=== PATIENT | male | born 1960 | race Caucasian/White ===

== ENCOUNTER 2020-09-24 07:36 | Outpatient (REF) | payer BC, SELFPAY ==
--- NOTE | 2020-09-24 07:45 | FL_ITS ---
EXAMINATION: BARIUM SWALLOW CLINICAL INFORMATION: Gastroesophageal reflux disease and dysphagia COMPARISON: None TECHNIQUE: Upper GI was performed using thin and thick barium and effervescent granules. Barium tablet was also administered. Fluoroscopy time 1.8 minutes. DAP 24 zuniga per centimeter squared. Total dose 88 mgy. 57 saved fluoroscopic images. FINDINGS: The swallowing mechanism is normal. No aspiration or penetration is seen. There is gastroesophageal reflux. Esophageal motility is normal. No mass or stricture is seen. There is slight tenting of the proximal stomach likely representing postsurgical change. The stomach and duodenum are otherwise normal appearing. No fold thickening, mass, stricture or ulcer is seen. FL/FL barium swallow IMPRESSION: Gastroesophageal reflux.
== END 2020-09-24 07:37 | disposition home or self-care (01) ==
LOC: HO.XRAY 07:36
PROVIDERS: Visit Provider Internal Medicine
DX: R13.10 Dysphagia, unspecified (principal); K21.9 Gastro-esophageal reflux disease without esophagitis
CPT/HCPCS: 74220

== ENCOUNTER 2021-06-17 09:30 | Emergency (ER) | payer BC, SELFPAY ==
--- NOTE | ~2021-06-17 | CT_ITS ---
EXAMINATION: CT ABDOMEN AND PELVIS WITH CONTRAST CLINICAL INFORMATION: Nausea, diarrhea. Left lower quadrant pain. COMPARISON: Barium swallow fluoroscopy 09/24/2020, radionuclide HIDA scan 03/10/2016, abdominal ultrasound 02/04/2016, CT abdomen and pelvis with intravenous contrast 01/01/2010. TECHNIQUE: Multidetector volumetric images were obtained from the superior aspect of the liver through the pubic symphysis following administration 85 mL of Omnipaque 350 intravenous contrast. Sagittal and coronal reformatted images were obtained on the technologist's workstation. Oral contrast: No This CT examination was performed using dose optimization techniques as appropriate, variously including the following: *Automated exposure control *Adjustment of mA and/or kV according to patient size (this includes techniques or standardized protocols for targeted exams where dose is matched to indication/reason for exam; i.e. extremities or head) *Use of iterative reconstruction technique DLP: 615 mGy-cm FINDINGS: LUNG BASES: The visualized lung bases are unremarkable. LIVER, GALLBLADDER, AND BILIARY TREE: Liver is normal in size and smooth in contour. There is borderline hepatic steatosis. No focal hepatic parenchymal lesion or intrahepatic ductal dilatation. There are round dependent intraluminal densities in the gallbladder measuring up to 1.2 cm diameter. There is some trace peripheral calcification suggesting poorly mineralized gallstones. There is no gallbladder wall thickening or dilatation or pericholecystic inflammatory changes. The common duct is unremarkable. PANCREAS: Unremarkable. SPLEEN: Unremarkable. ADRENAL GLANDS: Unremarkable. KIDNEYS AND URETERS: The kidneys are normal in size, shape, and attenuation. No hydronephrosis, hydroureter, or calculi seen. No perinephric stranding. BLADDER: Unremarkable. GASTROINTESTINAL TRACT: There are mild inflammatory changes around a lower descending colon diverticulum with mild induration in the mesentery (axial 54/91, sagittal 35/128). There is no proximal obstruction, pneumatosis, free air, ascites, or fluid collection. The appendix is not seen with certainty. There are no inflammatory changes around the terminal ileum or cecum. ABDOMINAL WALL: Borderline fat-containing right inguinal hernia. LYMPH NODES: No lymphadenopathy. VASCULAR: Unremarkable. PELVIC VISCERA: Prostatic calcifications. Seminal vesicles symmetric. Pelvic side wall soft tissues unremarkable. OSSEOUS STRUCTURES: Unremarkable. CT/CT abdomen pelvis w con IMPRESSION: 1. Mild diverticulitis distal descending colon. No proximal obstruction, ascites, or fluid collection. 2. Suspect poorly mineralized gallstones. No gallbladder wall thickening or ductal dilatation.
[2021-06-17 09:44] VITALS: BP 147/82; PULSE 62; RESP 20; TEMP 36.7; O2SAT 98; BMI 29.6
[2021-06-17] MEDS: 0.9 % Sodium Chloride 1,000 ML 999 ML IVCONT (11:19)
[2021-06-17 11:24] LABS: MANUAL DIFF FLAG NO
[2021-06-17 11:26] LABS: Appearance Urine CLEAR; Basophils Percent Auto 0.4 % (0-2); Color Urine STRAW; Eosinophils Absolute Auto 0.1 X10*3/uL (0.0-0.4); Eosinophils Percent Auto 1.1 % (0-4); Glucose Urine UA NEG (NEG); Hematocrit 41.6 % (42-52); Hemoglobin 13.8 g/dl (14.0-18.0); Imm Gran Abs Auto 0.01 X10*3/uL (0.00-0.03); Imm Gran Pct Auto 0.2 % (0.0-0.4); Leukocyte Esterase Urine NEG (NEG); Lymphocytes Absolute Auto 1.4 X10*3/uL (1.2-4.9); Lymphocytes Percent Auto 25.3 % (20-40); Mean Corpuscular HGB Conc 33.2 g/dl (31.0-36.0); Mean Corpuscular Hemoglobin 30.2 pg (27.0-33.0); Mean Platelet Volume 10.5 fL (9.4-12.4); Monocytes Absolute Auto 0.5 X10*3/uL (0.1-1.2); Monocytes Percent Auto 8.8 % (2-11); Neutrophils Absolute Auto 3.5 X10*3/uL (2.0-8.3); Neutrophils Percent Auto 64.2 % (45-73); Nitrite Urine NEG (NEG); Platelet Count 194 X10*3/uL (160-400); Red Blood Count 4.57 X10*6/uL (4.60-5.80); Red Cell Distribution Width 14.6 % (11.0-16.0); Specific Gravity - Urine <= 1.005 (1.005-1.025); Urine Blood NEG (NEG); Urine Ketones NEG (NEG); Urine Protein NEG (NEG-TRACE); White Blood Count 5.4 X10*3/uL (4.8-10.8)
--- NOTE | 2021-06-17 11:32 | ED.ABDPAIN ---
HPI - Abdominal Pain General Chief Complaint: Abdominal Pain Stated Complaint: abd pain Time Seen by Provider: 06/17/21 10:45 Source: patient Mode of arrival: ambulatory Limitations: no limitations History of Present Illness HPI narrative: 61-year-old male with a past medical history of type 2 diabetes, hypertension, hypercholesterolemia and obesity presenting to the ED with complaints of left lower quadrant abdominal pain with associated nausea and diarrhea for the past 3 days worse today. Denies any fevers, dizziness, headaches, chest pain, shortness of breath, radiation of the abdominal pain, back pain, dysuria, hematuria, constipation, black or bloody stools, recent travel or sick contacts or possible bad food exposure. Denies any other symptoms complaints or concerns at this time. MD elicited complaint: abdominal pain Pertinent past history: none Onset (ago): day(s) (Three days worse today) Pain Consistency: constant Location: LLQ Severity: moderate Quality: aching Radiation: none Migration to: no migration Exacerbating factors: nothing Relieving factors: nothing Associated symptoms: nausea and diarrhea Related Data Home Medications Medication Instructions Recorded Confirmed aspirin 325 mg tablet,delayed 325 mg PO BID 06/17/21 release hydromorphone 2 mg tablet mg PO Q4-6H PRN 06/17/21 lisinopril 30 mg tablet 30 mg PO DAILY 06/17/21 meloxicam 15 mg tablet 15 mg PO DAILY 06/17/21 metronidazole 0.75 % topical cream appl TOPICAL BID 06/17/21 Previous Rx's Medication Instructions Recorded amoxicillin 875 mg-potassium 1 tab PO BID 10 Days #20 tab 06/17/21 clavulanate 125 mg tablet (Augmentin) Allergies Allergy/AdvReac Type Severity Reaction Status Date / Time No Known Allergies Allergy Verified 09/10/20 11:26 [No Known Allergies*] Review of Systems Review of Systems Constitutional : No Weight loss, No Fever, No Chills, No Night Sweats, No Fatigue, NoMalaise ENT/Mouth: No ear pain, No sore throat, No Difficulty swallowing Cardiovascular : No Chest Pain, No SOB, No Dyspnea on Exertion, No Orthopnea, NoEdema, No Palpitations Respiratory : No Cough, No Sputum, No Wheezing, No Dyspnea Gastrointestinal : Positive nausea with left lower quadrant abdominal pain and diarrhea, No Vomiting, No blood streaked emesis, No coffee-ground emesis, No gross hematemesis, No blood streak stool, No gross hematochezia, No Melena Genitourinary : No irregular bleeding, No Dysuria, No Urinary Frequency, No Hematuria,No Urinary Incontinence, No Urgency, No Flank Pain Musculoskeletal : No joint pain, No Myalgias, No Joint Swelling Skin : No Skin Lesions, No rash Neuro : No Weakness, No Numbness, No Paresthesias, No Loss of Consciousness, NoDizziness, No Headache Psych : No Social Issues, Heme/Lymph: No Bruising, No Bleeding,No Lymphadenopathy Endocrine : No Polyuria, No Polydipsia, No Temperature Intolerance Yes all other systems are reviewed and are negative Physical Exam Vital Signs: Vital Signs: Last Vital Signs Temp 98.0 F 06/17/21 09:44 Pulse 51 06/17/21 11:36 Resp 18 06/17/21 11:36 BP 136/89 06/17/21 11:36 Pulse Ox 100 06/17/21 11:36 Body Mass Index 29.6 vital signs have been reviewed as normal and appeared to be correct. Blood pressure normal. Heart rate normal. Respiration rate normal. Temperature normal. Oxygen saturation normal. Appearance: Alert. Oriented X3. No acute distress. Head: Normal external exam. Normocephalic. Eyes: PERRLA. EOMI. Conjunctiva and sclera normal. Eyelids normal. ENT: Pharynx normal. Uvula midline. Moist mucous membranes. Neck: Normal inspection. Neck supple. FROM. No adenopathy. No meningeal signs. CVS: Normal heart rate and rhythm. Heart sound normal. No murmurs noted. Pulses normal throughout. Respiratory: No respiratory distress. Painless inspiration. Breath sounds normal. No wheezes/rales/rhonchi noted. Chest nontender. No accessory muscle usage noted or decreased air movement noted. Abdomen: Soft and tenderness to palpation to left lower quadrant with guarding. Nondistended. No rigidity. Bowel sounds normal in all 4 quadrants. No distention noted. No organomegaly noted. No visible injury noted. No rebound tenderness. Negative Rovsing sign. Negative obturator's sign. Negative psoas sign. Negative Condon sign. Back: No CVA tenderness. Full range of motion noted. Skin: Skin warm and dry. Normal skin color. Normal skin turgor. No rashes/lesions/lacerations noted. Extremities: Extremities exhibit normal range of motion. Extremities nontender. Neuro: Oriented X 3. No motor deficit. No sensory deficit. Reflexes normal. Normal steady gait. Course Course Course Narrative: 10:45am - 61-year-old male with a past medical history of type 2 diabetes, hypertension, hypercholesterolemia and obesity presenting to the ED with complaints of left lower quadrant abdominal pain with associated nausea and diarrhea for the past 3 days worse today. Plan: Labs, UA, CT scan of abdomen pelvis with IV contrast and re-evaluate. Reevaluation(s) Reevaluation #1: - labs return patient with mild baseline anemia similar when compared to prior. All other labs are within normal limits. UA within normal limits no evidence of UTI. CT scan abdomen pelvis with IV contrast revealed mild diverticulitis at the distal descending colon. No obstruction ascites or fluid collection. Also noted to have gallstones. No other acute processes. 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 Patient understands agrees this plan. Time: 13:06 [facility] - Abdominal Pain Medical Records Attestation: I reviewed the patient's medical records. Lab Data Attestation: I reviewed the patient's lab results. Result diagrams: 06/17/21 11:14 06/17/21 11:14 Labs: Lab Results 06/17/21 06/17/21 06/17/21 Range/Units 11:14 11:14 11:14 WBC 5.4 (4.8-10.8) X10*3/uL RBC 4.57 L (4.60-5.80) X10*6/uL Hgb 13.8 L (14.0-18.0) g/dl Hct 41.6 L (42-52) % MCV 91.0 (80-98) fL MCH 30.2 (27.0-33.0) pg MCHC 33.2 (31.0-36.0) g/dl RDW 14.6 (11.0-16.0) % Plt Count 194 (160-400) X10*3/uL MPV 10.5 (9.4-12.4) fL Immature Gran % (Auto) 0.2 (0.0-0.4) % Neut % (Auto) 64.2 (45-73) % Lymph % (Auto) 25.3 (20-40) % [place] % (Auto) 8.8 (2-11) % Eos % (Auto) 1.1 (0-4) % Baso % (Auto) 0.4 (0-2) % Lymph # (Auto) 1.4 (1.2-4.9) X10*3/uL [place] # (Auto) 0.5 (0.1-1.2) X10*3/uL Eos # (Auto) 0.1 (0.0-0.4) X10*3/uL Baso # (Auto) 0.0 (0.0-0.2) X10*3/uL Abs Immat Gran (auto) 0.01 (0.00-0.03) X10*3/uL Absolute Neuts (auto) 3.5 (2.0-8.3) X10*3/uL Absolute Nucleated RBC 0.000 (0.0-0.012) X10*3/uL Nucleated RBC % (auto) 0.0 (0.0-0.2) /100WBC Sodium 139 (135-145) mmol/L Potassium 4.6 (3.3-5.1) mmol/L Chloride 105 (96-108) mmol/L Carbon Dioxide 25 (22-29) mmol/L Anion Gap 14 (12-20) BUN 9 (9-16) mg/dL Creatinine 0.79 (0.5-1.4) mg/dL Estim Creat Clear Calc 104.7 Estimated GFR > 60 Random Glucose 89 (60-115) mg/dL Calcium 9.5 (8.4-10.2) mg/dL Magnesium 2.2 (1.6-2.6) mg/dL Total Bilirubin 0.6 (0.0-1.0) mg/dL AST 31 (5-37) U/L ALT 22 (0-40) U/L Alkaline Phosphatase 72 (39-117) U/L Total Protein 7.6 (6.5-8.0) g/dL Albumin 4.6 (3.5-5.0) g/dL Lipase 24 (8-78) U/L Urine Color Urine Appearance Urine pH (5.0-8.0) Ur Specific [place] (1.005-1.025) Urine Protein (NEG-TRACE) MG/DL Urine Glucose (UA) (NEG) MG/DL Urine Ketones (NEG) MG/DL Urine Blood (NEG) Urine Nitrite (NEG) Ur Leukocyte Esterase (NEG) 06/17/21 Range/Units 11:14 WBC (4.8-10.8) X10*3/uL RBC (4.60-5.80) X10*6/uL Hgb (14.0-18.0) g/dl Hct (42-52) % MCV (80-98) fL MCH (27.0-33.0) pg MCHC (31.0-36.0) g/dl RDW (11.0-16.0) % Plt Count (160-400) X10*3/uL MPV (9.4-12.4) fL Immature Gran % (Auto) (0.0-0.4) % Neut % (Auto) (45-73) % Lymph % (Auto) (20-40) % B[place] % (Auto) (2-11) % Eos % (Auto) (0-4) % Baso % (Auto) (0-2) % Lymph # (Auto) (1.2-4.9) X10*3/uL [place] # (Auto) (0.1-1.2) X10*3/uL Eos # (Auto) (0.0-0.4) X10*3/uL Baso # (Auto) (0.0-0.2) X10*3/uL Abs Immat Gran (auto) (0.00-0.03) X10*3/uL Absolute Neuts (auto) (2.0-8.3) X10*3/uL Absolute Nucleated RBC (0.0-0.012) X10*3/uL Nucleated RBC % (auto) (0.0-0.2) /100WBC Sodium (135-145) mmol/L Potassium (3.3-5.1) mmol/L Chloride (96-108) mmol/L Carbon Dioxide (22-29) mmol/L Anion Gap (12-20) BUN (9-16) mg/dL Creatinine (0.5-1.4) mg/dL Estim Creat Clear Calc Estimated GFR Random Glucose (60-115) mg/dL Calcium (8.4-10.2) mg/dL Magnesium (1.6-2.6) mg/dL Total Bilirubin (0.0-1.0) mg/dL AST (5-37) U/L ALT (0-40) U/L Alkaline Phosphatase (39-117) U/L Total Protein (6.5-8.0) g/dL Albumin (3.5-5.0) g/dL Lipase (8-78) U/L Urine Color STRAW Urine Appearance CLEAR Urine pH 6.0 (5.0-8.0) Ur Specific [place] <= 1.005 (1.005-1.025) Urine Protein NEG (NEG-TRACE) MG/DL Urine Glucose (UA) NEG (NEG) MG/DL Urine Ketones NEG (NEG) MG/DL Urine Blood NEG (NEG) Urine Nitrite NEG (NEG) Ur Leukocyte Esterase NEG (NEG) Discharge Plan Discharge Clinical Impression: Diverticulitis Patient Disposition: Home, Self-Care Instructions: Diverticulitis (ED), Diverticulitis Diet (ED) Prescriptions: New amoxicillin-pot clavulanate [Augmentin] 875-125 mg tablet 1 tab PO BID 10 Days Qty: 20 RF: 0 Referrals: Esteban Verdugo [Physician] - 2 days Print Language: Burmese [facility] Past Medical History Attestation statement: The following information was validated with the patient. Medical History Closed fracture of distal clavicle Degenerative disc disease Hand fracture, right Hypercholesterolemia Hypertension Inguinal hernia Obesity (BMI 30-39.9) Type 2 diabetes mellitus with hyperglycemia Surgical History History of appendectomy History of arthroplasty of left knee History of arthroplasty of right knee History of vasectomy Family History Family History Father Hypertension Mother Lung cancer Son Cancer Brother Bladder cancer Hypertension Hemochromatosis Social History Social History Advance Directives: No Advance Directives Information Provided: No
[2021-06-17 11:36] VITALS: BP 136/89; PULSE 51; RESP 18; O2SAT 100
[2021-06-17 11:45] LABS: Lipase 24 U/L (8-78)
[2021-06-17 11:50] LABS: Alanine Aminotransferase 22 U/L (0-40); Albumin Level 4.6 g/dL (3.5-5.0); Alkaline Phosphatase 72 U/L (39-117); Anion Gap 14 (12-20); Aspartate Amino Transferase 31 U/L (5-37); Bilirubin Total 0.6 mg/dL (0.0-1.0); Blood Urea Nitrogen 9 mg/dL (9-16); Calcium 9.5 mg/dL (8.4-10.2); Carbon Dioxide 25 mmol/L (22-29); Chloride 105 mmol/L (96-108); Creatinine Clr Calc Pharmacy 104.7; Estimated Glomerular Filt Rate > 60; Glucose Random 89 mg/dL (60-115); Magnesium 2.2 mg/dL (1.6-2.6); Potassium 4.6 mmol/L (3.3-5.1); Sodium 139 mmol/L (135-145); Total Protein 7.6 g/dL (6.5-8.0)
[2021-06-17] MEDS: iohexoL 350 MG/ML 100 ML INFUS..BTL 85 ML IV (12:34)
== END 2021-06-17 13:49 | disposition home or self-care (01) ==
PROVIDERS: Physician Assistant Medical; Emergency Provider Emergency Medicine; PCP Internal Medicine
DX: K57.32 Diverticulitis of large intestine without perforation or abscess without bleeding (principal); R10.32 Left lower quadrant pain; E11.9 Type 2 diabetes mellitus without complications; I10 Essential (primary) hypertension; E78.00 Pure hypercholesterolemia, unspecified; Z79.899 Other long term (current) drug therapy
CPT/HCPCS: 36415; 74177; 80053; 81003; 83690; 83735; 85025; 99283; Q9967

== ENCOUNTER 2021-10-31 10:37 | Outpatient (REF) | payer BC, SELFPAY ==
--- NOTE | ~2021-10-31 | XR_ITS ---
EXAMINATION: XR CHEST CLINICAL INFORMATION: Palpable lump anterior chest wall COMPARISON: 03/31/2015 TECHNIQUE: 2 views of the chest were obtained. FINDINGS: Normal symmetric lung volumes. No parenchymal consolidation. No pleural effusion. No pneumothorax. Cardiomediastinal silhouette and pulmonary vascularity are within normal limits. No acute osseous abnormalities. XR/XR chest 2V IMPRESSION: No acute findings. No radiographic correlate for the left anterior chest wall lump
== END 2021-10-31 10:38 | disposition home or self-care (01) ==
LOC: HO.XRAY 10:37
PROVIDERS: PCP Internal Medicine; Visit Provider Internal Medicine
DX: R22.2 Localized swelling, mass and lump, trunk (principal)
CPT/HCPCS: 71046

== ENCOUNTER 2021-12-19 14:26 | Outpatient (REF) | payer BC, SELFPAY ==
--- NOTE | ~2021-12-19 | US_ITS ---
EXAMINATION: US CHEST CLINICAL INFORMATION: Question lump/mass inferior to the left clavicle COMPARISON: None TECHNIQUE: Targeted ultrasound evaluation FINDINGS: Targeted ultrasound evaluation was performed in region patient indicated just inferior to the left clavicle. Comparison imaging was performed on the right chest as well. No abnormal masses identified. No cystic lesion is seen. No hyperemia. No edematous change within the tissues. US/US chest IMPRESSION: No ultrasound abnormality identified.
== END 2021-12-19 14:27 | disposition home or self-care (01) ==
LOC: HO.HMGCX 14:26
PROVIDERS: PCP Internal Medicine; Visit Provider Internal Medicine
DX: R22.1 Localized swelling, mass and lump, neck (principal)
CPT/HCPCS: 76604

== ENCOUNTER 2022-02-05 11:14 | Outpatient (REF) | payer BC, SELFPAY ==
[2022-02-05 11:29] LABS: MANUAL DIFF FLAG NO
[2022-02-05 11:49] LABS: Basophils Percent Auto 0.4 % (0-2); Eosinophils Absolute Auto 0.1 X10*3/uL (0.0-0.4); Eosinophils Percent Auto 2.2 % (0-4); Hematocrit 42.1 % (42.0-52.0); Imm Gran Abs Auto 0.02 X10*3/uL (0.00-0.03); Imm Gran Pct Auto 0.4 % (0.0-0.4); Lymphocytes Absolute Auto 1.3 X10*3/uL (1.2-4.9); Lymphocytes Percent Auto 27.2 % (20-40); Mean Corpuscular HGB Conc 33.3 g/dl (31.0-36.0); Mean Corpuscular Volume 93.3 fL (80.0-98.0); Mean Platelet Volume 11.2 fL (9.4-12.4); Monocytes Absolute Auto 0.4 X10*3/uL (0.1-1.2); Monocytes Percent Auto 8.6 % (2-11); Neutrophils Absolute Auto 2.8 x10*3/uL (2.0-8.3); Neutrophils Percent Auto 61.2 % (45-73); Platelet Count 172 X10*3/uL (160-400); Red Blood Count 4.51 X10*6/uL (4.60-5.80); Red Cell Distribution Width 13.9 % (11.0-16.0); White Blood Count 4.6 X10*3/uL (4.8-10.8)
[2022-02-05 12:46] LABS: Folate 18.1 ng/mL (> or = 4.0); Vitamin B12 482 pg/mL (200-900)
[2022-02-05 12:57] LABS: Estimated Average Glucose 140 mg/dL; Hemoglobin A1c % 6.5 %
[2022-02-05 13:28] LABS: Creatinine Urine 22.28 mg/dL; Microalbumin Urine < 5.0 mg/L
[2022-02-05 14:11] LABS: Alanine Aminotransferase 33 U/L (0-40); Albumin Level 4.4 g/dL (3.5-5.0); Alkaline Phosphatase 68 U/L (39-117); Anion Gap 11 (12-20); Aspartate Amino Transferase 26 U/L (5-37); Bilirubin Total 0.9 mg/dL (0.0-1.0); Blood Urea Nitrogen 12 mg/dL (9-16); Calcium 9.3 mg/dL (8.4-10.2); Carbon Dioxide 28 mmol/L (22-29); Chloride 102 mmol/L (96-108); Cholesterol 154 mg/dL; Estimated Glomerular Filt Rate > 60; Glucose Random 131 mg/dL (60-115); HDL Cholesterol 45 mg/dL; LDL Cholesterol Calculated 99 mg/dl; Potassium 4.4 mmol/L (3.3-5.1); Sodium 137 mmol/L (135-145); Total Protein 6.9 g/dL (6.5-8.0); Triglycerides 53 mg/dL
[2022-02-05 14:39] LABS: Free T4 (Free Thyroxine) 1.08 ng/dL (0.71-1.85); Thyroid Stimulating Hormone 0.48 uIU/mL (0.32-4.0)
== END 2022-02-05 11:15 | disposition home or self-care (01) ==
LOC: HO.LAB 11:14
PROVIDERS: PCP Internal Medicine; Visit Provider Internal Medicine
DX: E11.65 Type 2 diabetes mellitus with hyperglycemia (principal); E78.00 Pure hypercholesterolemia, unspecified; Z12.5 Encounter for screening for malignant neoplasm of prostate
CPT/HCPCS: 36415; 80053; 80061; 82043; 82607; 82746; 83036; 84153; 84439; 84443; 85025

== ENCOUNTER 2022-10-07 09:19 | Day surgery (SDC) | payer BC, SELFPAY ==
--- NOTE | 2022-10-06 10:55 | HO.ANESPROP2 ---
Documented by User: So Doe NP 10/06/22 10:55 HPI - Anesthesia Eval Consult details Narrative: 62yo M for Colonoscopy PMFSH Active Problems Active Problems: All Active Problems (Updated 05/15/22 @ 11:06 by Chucky Martinez MD) Sebaceous cyst (Acute) Annual physical exam (Acute) Overweight (BMI 25.0-29.9) (Acute) Colon cancer screening (Acute) Excessive tearing (Acute) Localized swelling, mass and lump, neck (Acute) Mass of chest wall, left (Acute) Hemorrhoid (Acute) Watery eyes (Acute) Rosacea (Acute) Lumbar degenerative disc disease (Acute) History of arthroplasty of right knee (Acute) Abdominal pain (Acute) Hypercholesterolemia (Acute) Hypertension (Acute) Type 2 diabetes mellitus with hyperglycemia (Acute) Past Medical History Medical History (Updated 10/07/22 @ 10:03 by Starr Lyon, JONAHTAN) Cholelithiasis Closed fracture of distal clavicle Degenerative disc disease Diverticular disease Family history of hemochromatosis Hand fracture, right Hemorrhoids Hypercholesterolemia Hypertension Inguinal hernia Irritable bowel syndrome Knee osteoarthritis Obesity (BMI 30-39.9) Vitamin D deficiency Family History Family History (Updated 02/05/22 @ 14:44 by Christiana Mcclelland CMA) Father Hypertension Mother Lung cancer Son Cancer Brother Bladder cancer Hypertension Hemochromatosis Surgical History Surgical History History of appendectomy History of arthroplasty of left knee History of arthroplasty of right knee History of repair of hiatal hernia History of vasectomy Social History Social History (Updated 05/15/22 @ 10:43 by Chucky Martinez MD) Housing: House Alcohol intake: current Alcohol intake frequency: holidays/special occasions only Patient Tobacco Use Status: Never used Tobacco e-Cigarette/Vaping Use: Never Used Second Hand Smoke Exposure: No Use of substances other than those prescribed or required for medical reasons: No Are you DNR?: No Advance Directives: No Advance Directives Information Provided: Yes Current occupational status: employed Cognitive needs: No Hearing needs: No Vision needs: No Meds Allergies Allergy/AdvReac Type Severity Reaction Status Date / Time No Known Allergies Allergy Verified 05/15/22 10:07 [No Known Allergies*] Home Medications Medication Instructions Recorded Confirmed Last Taken Type lisinopril 30 mg tablet 30 mg PO DAILY 06/17/21 05/15/22 Unknown History ascorbate calcium (vitamin C) 500 1 g PO DAILY 05/15/22 05/15/22 Unknown History mg tablet cholecalciferol (vitamin D3) 25 25 mcg PO DAILY 05/15/22 05/15/22 Unknown History mcg (1,000 unit) capsule Exam Exam Date and Time: October 06, 2022 1055 Assessment and Plan Assessment Anesthesia Assessment: Chart Reviewed Documented by User: Cadence Lomax MD 10/07/22 10:50 PMFSH Past Medical History Medical History (Updated 10/07/22 @ 10:03 by Starr Lyon RN) Cholelithiasis Closed fracture of distal clavicle Degenerative disc disease Diverticular disease Family history of hemochromatosis Hand fracture, right Hemorrhoids Hypercholesterolemia Hypertension Inguinal hernia Irritable bowel syndrome Knee osteoarthritis Obesity (BMI 30-39.9) Vitamin D deficiency Family History Family History (Updated 02/05/22 @ 14:44 by Christiana Mcclelland CMA) Father Hypertension Mother Lung cancer Son Cancer Brother Bladder cancer Hypertension Hemochromatosis Family history of problems with anesthesia: No Surgical History Surgical History History of appendectomy History of arthroplasty of left knee History of arthroplasty of right knee History of repair of hiatal hernia History of vasectomy History of Problems with Anesthesia: No Social History Social History (Updated 05/15/22 @ 10:43 by Chucky Martinez MD) Housing: House Alcohol intake: current Alcohol intake frequency: holidays/special occasions only Patient Tobacco Use Status: Never used Tobacco e-Cigarette/Vaping Use: Never Used Second Hand Smoke Exposure: No Use of substances other than those prescribed or required for medical reasons: No Are you DNR?: No Advance Directives: No Advance Directives Information Provided: Yes Current occupational status: employed Cognitive needs: No Hearing needs: No Vision needs: No Meds Allergies Allergy/AdvReac Type Severity Reaction Status Date / Time No Known Allergies Allergy Verified 05/15/22 10:07 [No Known Allergies*] Home Medications Medication Instructions Recorded Confirmed Last Taken Type lisinopril 30 mg tablet 30 mg PO DAILY 06/17/21 05/15/22 Unknown History ascorbate calcium (vitamin C) 500 1 g PO DAILY 05/15/22 05/15/22 Unknown History mg tablet cholecalciferol (vitamin D3) 25 25 mcg PO DAILY 05/15/22 05/15/22 Unknown History mcg (1,000 unit) capsule Exam Airway Mallampati Class: II TM Dist: >3cm Neck ROM: Full Assessment and Plan Assessment Anesthesia Assessment: Anesthesia Plan Discussed Final Anesthetic Review Family History of Problems with Anesthesia: No History of Problems with Anesthesia: No NPO: Yes ASA Class: II and III Final Preanesthetic Review: No Changes in Pt Med Stat, Meds/Allgs Chart Reviewed, Consent Obtained/Reviewed and Anes Risks/Benef Reviewed Patient Risk: Low Procedure Risk: Low Anesthetic Plan Anesthetic Plan: MAC: Disposition: Standard PACU
[2022-10-07 09:35] VITALS: BP 137/85; PULSE 63; RESP 18; TEMP 36.3; O2SAT 97; BMI 29.5
[2022-10-07] MEDS: Lactated Ringers 1,000 ML 100 ML IVCONT (09:59)
[2022-10-07 11:41] VITALS: BP 112/71; PULSE 53; RESP 15; TEMP 36.3; O2SAT 99
--- NOTE | 2022-10-07 11:44 | PM.OP ---
Brief Operative Note Date of Service: 10/07/22 Pre-op diagnosis: Screening Post-op diagnosis: other (Polyp) Procedure: Colonoscopy to the cecum and TI with bx/removal of polyp Surgeon: Esteban Verdugo Anesthesia: MAC Was an Maintenance Of Way Supervisor used for this Procedure?: No Estimated blood loss (mL): 2.0 Pathology: other (A. Ascending colon polyp) Condition: stable Disposition: PACU
[2022-10-07 11:56] VITALS: BP 134/85; PULSE 54; RESP 16; TEMP 36.8; O2SAT 99
--- NOTE | 2022-10-07 13:40 | OP_ITS ---
SURGEON: Esteban Verdugo MD INDICATIONS: The patient presents for evaluation of colorectal cancer screening. Full consent obtained from him for this, including risks of bleeding and perforation. PREOPERATIVE DIAGNOSIS: Colorectal cancer screening. POSTOPERATIVE DIAGNOSIS: PROCEDURE PERFORMED: Colonoscopy to the cecum and terminal ileum with biopsy and removal of polyp. ESTIMATED BLOOD LOSS: COMPLICATIONS: ANESTHESIA: Monitored anesthesia care. ASSISTANTS: SPECIMENS: POSTOPERATIVE DIAGNOSES: Colorectal cancer screening, small colon polyp, diverticulosis, internal and external hemorrhoids. DESCRIPTION OF PROCEDURE: The patient was placed in the left lateral decubitus position. The digital rectal exam revealed external hemorrhoids. The Olympus video pediatric colonoscope was entered into the rectum and advanced easily to the cecum. Once in the cecum, I did identify normal-appearing cecal pouch with appendiceal orifice and a normal-appearing ileocecal valve. The terminal ileum was cannulated and appeared normal. The scope was withdrawn back in the colon. The entire cecum and ileocecal valve appeared normal. The scope was slowly withdrawn assessing all mucosal surfaces carefully. Preparation was excellent. In the very proximal ascending colon, was a flat approximately 3 or 4 mm polyp, which was biopsied and completely removed with a cold biopsy forceps. I did not visualize any other polyps, colitis, or angiodysplasia. There was a mild amount of sigmoid diverticulosis. In the rectum, scope was retroflexed visualizing internal hemorrhoids, but no other pathology. The rectal mucosa appeared normal. The scope was straightened and withdrawn from the patient. He tolerated the procedure well and was returned to the recovery area in stable condition. IMPRESSION: 1. Small colon polyp. 2. Diverticulosis. 3. Internal and external hemorrhoids. PLAN: The results of the biopsy will be checked. If this is a tubular adenoma, I would recommend a followup colonoscopy in 5 years. If it is only hyperplastic, I would recommend a followup colonoscopy in 10 years. He will otherwise see me on a p.r.n. basis. MD CLARKE Sweeney/BELGICA / [id number]
== END 2022-10-07 12:43 | disposition home or self-care (01) ==
PROVIDERS: PCP Internal Medicine; Visit Provider Internal Medicine
PROC: 0DJD8ZZ Inspection of Lower Intestinal Tract, Via Natural or Artificial Opening Endoscopic (ICD-10-PCS; CPT 45378; principal; 2022-10-07 10:40)
DX: Z12.11 Encounter for screening for malignant neoplasm of colon (principal); Z86.010 Personal history of colon polyps; D12.2 Benign neoplasm of ascending colon; K57.30 Diverticulosis of large intestine without perforation or abscess without bleeding; K64.8 Other hemorrhoids; K64.4 Residual hemorrhoidal skin tags; K58.9 Irritable bowel syndrome, unspecified; K21.9 Gastro-esophageal reflux disease without esophagitis; Z79.82 Long term (current) use of aspirin; Z79.899 Other long term (current) drug therapy; Z96.653 Presence of artificial knee joint, bilateral
CPT/HCPCS: 45380; 88305

== ENCOUNTER 2022-11-13 11:33 | Outpatient (REF) | payer BC, SELFPAY ==
[2022-11-13 13:41] LABS: Estimated Average Glucose 134 mg/dL; Hemoglobin A1C 203.9395 umol/L; Hemoglobin A1c % 6.3 %
[2022-11-13 13:51] LABS: Alanine Aminotransferase 31 U/L (0-40); Albumin Level 4.5 g/dL (3.5-5.0); Alkaline Phosphatase 69 U/L (39-117); Anion Gap 11 (12-20); Aspartate Amino Transferase 27 U/L (5-37); Blood Urea Nitrogen 10 mg/dL (9-16); Calcium 9.6 mg/dL (8.4-10.2); Carbon Dioxide 27 mmol/L (22-29); Chloride 104 mmol/L (96-108); Cholesterol 170 mg/dL; Estimated Glomerular Filt Rate > 60; Glucose Random 146 mg/dL (60-115); HDL Cholesterol 50 mg/dL; LDL Cholesterol Calculated 105 mg/dl; Potassium 4.7 mmol/L (3.3-5.1); Sodium 137 mmol/L (135-145); Total Protein 7.2 g/dL (6.5-8.0); Triglycerides 76 mg/dL
== END 2022-11-13 11:34 | disposition home or self-care (01) ==
LOC: HO.LAB 11:33
PROVIDERS: PCP Internal Medicine; Visit Provider Internal Medicine
DX: E11.65 Type 2 diabetes mellitus with hyperglycemia (principal); E78.00 Pure hypercholesterolemia, unspecified
CPT/HCPCS: 36415; 80053; 80061; 82306; 83036; 83735

== ENCOUNTER 2023-05-24 09:05 | Outpatient (REF) | payer BC, SELFPAY ==
[2023-05-24 09:28] LABS: MANUAL DIFF FLAG NO
[2023-05-24 09:46] LABS: Basophils Percent Auto 0.6 % (0-2); Eosinophils Absolute Auto 0.1 X10*3/uL (0.0-0.4); Eosinophils Percent Auto 1.5 % (0-4); Hematocrit 42.8 % (42.0-52.0); Hemoglobin 14.4 g/dl (14.0-18.0); Imm Gran Abs Auto 0.02 X10*3/uL (0.00-0.03); Imm Gran Pct Auto 0.4 % (0.0-0.4); Lymphocytes Absolute Auto 1.5 X10*3/uL (1.2-4.9); Lymphocytes Percent Auto 28.4 % (20-40); Mean Corpuscular HGB Conc 33.6 g/dl (31.0-36.0); Mean Corpuscular Hemoglobin 30.8 pg (27.0-33.0); Mean Corpuscular Volume 91.6 fL (80.0-98.0); Mean Platelet Volume 11.2 fL (9.4-12.4); Monocytes Absolute Auto 0.5 X10*3/uL (0.1-1.2); Monocytes Percent Auto 8.8 % (2-11); Neutrophils Absolute Auto 3.2 x10*3/uL (2.0-8.3); Neutrophils Percent Auto 60.3 % (45-73); Platelet Count 181 X10*3/uL (160-400); Red Blood Count 4.67 X10*6/uL (4.60-5.80); Red Cell Distribution Width 13.7 % (11.0-16.0); White Blood Count 5.3 X10*3/uL (4.8-10.8)
[2023-05-24 12:03] LABS: Alanine Aminotransferase 24 U/L (0-40); Albumin Level 4.4 g/dL (3.5-5.0); Alkaline Phosphatase 64 U/L (39-117); Anion Gap 14 (12-20); Aspartate Amino Transferase 24 U/L (5-37); Bilirubin Total 0.8 mg/dL (0.0-1.0); Blood Urea Nitrogen 14 mg/dL (9-16); Calcium 9.7 mg/dL (8.4-10.2); Carbon Dioxide 24 mmol/L (22-29); Chloride 105 mmol/L (96-108); Cholesterol 161 mg/dL; Estimated Glomerular Filt Rate > 60; Glucose Random 141 mg/dL (60-115); HDL Cholesterol 53 mg/dL; LDL Cholesterol Calculated 97 mg/dl; Potassium 4.2 mmol/L (3.3-5.1); Sodium 139 mmol/L (135-145); Total Protein 7.3 g/dL (6.5-8.0); Triglycerides 56 mg/dL
[2023-05-24 12:09] LABS: Free T4 (Free Thyroxine) 1.08 ng/dL (0.71-1.85); Thyroid Stimulating Hormone 0.79 uIU/mL (0.32-4.0)
== END 2023-05-24 09:06 | disposition home or self-care (01) ==
LOC: HO.LAB 09:05
PROVIDERS: PCP Internal Medicine; Visit Provider Internal Medicine
DX: Z12.5 Encounter for screening for malignant neoplasm of prostate (principal); E11.65 Type 2 diabetes mellitus with hyperglycemia; E78.00 Pure hypercholesterolemia, unspecified
CPT/HCPCS: 36415; 80053; 80061; 82043; 82607; 82746; 83036; 84153; 84439; 84443; 85025

== ENCOUNTER 2023-05-24 09:39 | Outpatient (AMB) | payer BC, SELFPAY ==
--- NOTE | 2023-05-24 10:14 | MHC.PC.OV ---
Intake Visit Reasons: DM Allergies No Known Allergies [No Known Allergies*] Allergy (Verified 05/24/23 10:15) Tobacco use date assessed: 11/23/22 Fall risk assessment: No Falls in past year Last assessed Fall Risk: 05/24/23 Dental Screening Dental Screen Date: 05/24/23 Did you have a dental visit in the last 12 months?: Yes Did you have a dental problem in the last 6 months where you did not have access to dental care?: No Was dental information given to patient?: Patient has dentist HPI DM HPI Details 63-year-old overweight male with diabetes mellitus hypertension hypercholesterolemia rosacea coming in for follow-up . Blood work was just done. Patient has lost more than 10 lb and feeling better. Patient has been getting blood pressure at home here and there and states has been getting better blood pressure. Patient has not taking the blood pressure medication today. Patient also has been seeing dermatology but would like to have may refer him to the dermatology only and not seeing nurse practitioners. Discussed that we can refer him to Dr. Love. [facility] Medical History Abdominal pain Cholelithiasis Closed fracture of distal clavicle Colon cancer screening Degenerative disc disease Diverticular disease Family history of hemochromatosis Hand fracture, right Hemorrhoid Hemorrhoids Hypercholesterolemia Hypertension Inguinal hernia Irritable bowel syndrome Knee osteoarthritis Localized swelling, mass and lump, neck Obesity (BMI 30-39.9) Vitamin D deficiency Watery eyes Surgical History History of appendectomy History of arthroplasty of left knee History of arthroplasty of right knee History of repair of hiatal hernia History of vasectomy Family History (Updated 02/05/22 @ 14:44 by Christiana Mcclelland CMA) Father Hypertension Mother Lung cancer Son Cancer Brother Bladder cancer Hypertension Hemochromatosis Social History (Updated 05/15/22 @ 10:43 by Chucky Martinez MD) Housing: House Alcohol intake: current Alcohol intake frequency: holidays/special occasions only Patient Tobacco Use Status: Never used Tobacco e-Cigarette/Vaping Use: Never Used Second Hand Smoke Exposure: No Current occupational status: employed Cognitive needs: No Hearing needs: No Vision needs: No Questionnaire PHQ-9 Over the last 2 weeks, how often have you been bothered by any of the following problems? 1. Little interest or pleasure in doing things: not at all 2. Feeling down, depressed, or hopeless: not at all 3. Trouble falling or staying asleep, or sleeping too much: not at all 4. Feeling tired or having little energy: not at all 5. Poor appetite or overeating: not at all 6. Feeling bad about yourself - or that you are a failure or have let yourself or your family down: not at all 7. Trouble concentrating on things, such as reading the newspaper or watching television: not at all 8. Moving or speaking so slowly that other people could have noticed. Or the opposite - being so fidgety or restless that you have been moving around a lot more than usual: not at all 9. Thoughts that you would be better off or of hurting yourself in some way: not at all Total score: 0 Depression Screening Interpretation: Negative Source: Developed by Drs. Esteban Han, Brandi Brandon, Chano Bahena and colleagues, with an educational jong from [employer]. Thrive Questionnaire Date Thrive assessed: 11/23/22 AUDIT C Alcohol Use Questionnaire (AUDIT-C) 1. How often do you have a drink containing alcohol?: 2-4 times a month 2. How many drinks containing alcohol do you have on a typical day when you are drinking?: 1 or 2 3. How often do you have six or more drinks on one occasion?: Never Total Score: 2 MARILYN-7 AMB Questionnaire MARILYN-7 Date MARILYN - 7 assessed: 11/23/22 Source: Developed by Drs. Esteban Han, Brandi Brandon, Chano Bahena and colleagues, with an educational jong from [employer]. Physical exam (Primary Care) Tobacco/Smoking Status: Tobacco use Status Tobacco use date assessed 11/23/22 05/24/23 10:16 Patient Tobacco Use Status Never used Tobacco 05/24/23 10:16 e-Cigarette/Vaping Use Never Used 05/24/23 10:16 PHQ-9: PHQ-9 Score PHQ-9: Total score 0 05/24/23 10:16 Depression Screening Interpretation: Negative Thrive Assessment: Date of Thrive Assessment Date Thrive assessed 11/23/22 05/24/23 10:16 Const General: alert; No acute distress Eyes Conjunctivae: conjunctivae normal Resp Auscultation: clear to auscultation bilaterally Cardio Rate: regular rate Rhythm: regular rhythm GI Inspection: Yes normal to inspection Extrem General: Yes normal to inspection and No edema Assessment and Plan Assessment & Plan (1) Rosacea: Code(s): L71.9 - Rosacea, unspecified Plan: Referral to [place]. Patient is on metronidazole cream (2) Type 2 diabetes mellitus with hyperglycemia: Comment: Gabriel Ramirez Code(s): E11.65 - Type 2 diabetes mellitus with hyperglycemia Plan: Decrease the amount of carbohydrate intake, pasta, bread, rice and potatoes are all sugar and that is aside from all the sweet stuff, remember that fruits are good but they are Sweet also. Hemoglobin A1c goal of less than 6.5. Patient is on diet control (3) Hypertension: Code(s): I10 - Essential (primary) hypertension Plan: Continue with blood pressure medication. Decrease salt intake and exercise on lisinopril advised to monitor the blood pressure goal of 120/80 (4) Hypercholesterolemia: Code(s): E78.00 - Pure hypercholesterolemia, unspecified Plan: Avoid fried foods, chicken skin, eggs, butter margarine, pastries and meat. Be it pork or beef they have a lot of cholesterol LDL goal of less than 100 and triglyceride of less than 150 awaiting blood work results (5) Overweight (BMI 25.0-29.9): Code(s): E66.3 - Overweight Plan: Continue with diet and exercise Orders: Referrals Dermatology Referral L71.9 - Rosacea, unspecified Coding Level of Care Code Est Pt Level 4 (78186) Diagnoses Rosacea L71.9 Type 2 diabetes mellitus with hyperglycemia E11.65 Hypertension I10 Hypercholesterolemia E78.00 Overweight (BMI 25.0-29.9) E66.3
== END 2023-05-24 10:30 | disposition home or self-care (01) ==
PROVIDERS: PCP Internal Medicine; Visit Provider Internal Medicine
DX: L71.9 Rosacea, unspecified (principal); E11.65 Type 2 diabetes mellitus with hyperglycemia; I10 Essential (primary) hypertension; E78.00 Pure hypercholesterolemia, unspecified; E66.3 Overweight
CPT/HCPCS: 99214

== ENCOUNTER 2023-07-01 11:07 | Outpatient (AMB) | payer BC, SELFPAY ==
--- NOTE | 2023-07-01 11:13 | MHC.OFFWIV ---
Intake Vital Signs 07/01/23 11:14 Height 5 ft 9 in BP 132/70 Blood Pressure Location Lt brachial Position Sitting Pulse 66 Pulse Source Pulse Oximeter Temp 97.5 F Temp Source Temporal Artery Scan Pulse Oximetry (%) 97 Oxygen Delivery Method Room Air Intake Visit Reasons: EST/cold/flu Intake Note: Pt is here c/o chest and nose congestion for the last week. Pt also has c/o headache for the past three days. Patient Tobacco Use Status: Never used Tobacco Allergies No Known Allergies [No Known Allergies*] Allergy (Verified 07/01/23 11:13) Do you need a note to return to daycare/school/sports/work: No HPI EST/cold/flu HPI Details Patient is a 63-year-old male who comes to the walk-in clinic complaining of nasal congestion, postnasal drip and cough for last few days. He states that about a week ago he started with chest congestion and significant cough, and that is has been resolving for him with medication. He denies fever or chills, sinus pressure, face or jaw pain, ear pain, difficulty hearing, sore throat, loss of sense of taste or smell, nausea vomiting or diarrhea, weakness or dizziness, myalgias or malaise, or other significant associated symptoms. [facility] Medical History Abdominal pain Cholelithiasis Closed fracture of distal clavicle Colon cancer screening Degenerative disc disease Diverticular disease Family history of hemochromatosis Hand fracture, right Hemorrhoid Hemorrhoids Hypercholesterolemia Hypertension Inguinal hernia Irritable bowel syndrome Knee osteoarthritis Localized swelling, mass and lump, neck Obesity (BMI 30-39.9) Vitamin D deficiency Watery eyes Surgical History History of appendectomy History of arthroplasty of left knee History of arthroplasty of right knee History of repair of hiatal hernia History of vasectomy Family History Father Hypertension Mother Lung cancer Son Cancer Brother Bladder cancer Hypertension Hemochromatosis Social History Housing: House Alcohol intake: current Alcohol intake frequency: holidays/special occasions only Patient Tobacco Use Status: Never used Tobacco e-Cigarette/Vaping Use: Never Used Second Hand Smoke Exposure: No Current occupational status: employed Cognitive needs: No Hearing needs: No Vision needs: No Review of Systems Const All systems reviewed & are unremarkable except as noted in HPI and below Physical Exam Vital Signs: Last Vital Signs Temp 97.5 F 07/01/23 11:14 Pulse 66 07/01/23 11:14 BP 132/70 07/01/23 11:14 Pulse Ox 97 07/01/23 11:14 Oxygen Delivery Method Room Air 07/01/23 11:14 Const General: cooperative, healthy appearing, comfortable, no acute distress, alert, awake, Physically active and well groomed; No anxious, diaphoretic, intoxicated appearing, poor hygiene or tired appearing Nutritional Appearance: average body habitus Orientation/consciousness: oriented to person Limitations: no limitations HEENT Head: Yes normal to inspection, Yes normocephalic and Yes atraumatic Ears: hearing grossly normal bilaterally, external ears normal, EAC's normal and TM abnormal with fluid behind the TM General nose exam: Normal external nose present and Nasal discharge present clear Face and sinus: Yes normal facial exam, Yes sinuses nontender and Yes face symmetric Mouth: Normal oral and palatal mucosa present, lip normal and tongue normal Throat: Yes posterior oropharynx normal, No peritonsillar mass, Yes postnasal drainage, No uvular edema and No cobblestoning Eyes General: appearance normal, both eyes and all related structures Neck Neck: Yes normal visual inspection and Yes trachea midline Resp Effort & Inspection: normal respiratory effort, able to speak in complete sentences, no audible wheezes, no cough, no grunting, not labored, no nasal flaring, no retractions and symmetric chest movement Auscultation: clear to auscultation bilaterally, no crackles, no rales, no rhonchi, no wheezes, lung sounds not diminished and No rub present Cardio Palpation: normal PMI Rate: regular rate Rhythm: regular rhythm Heart sounds: S1 normal heart sound present and S2 normal heart sound present Skin Other: Good color, warm and dry Neuro General: oriented to person Psych Appearance: grossly normal Mental Status: mental status grossly normal Speech and movement: Normal speech and movement present Affect: normal affect Attitude: cooperative Thought process: Normal thought process present Insight: Good insight present (Psych) Judgement: Good judgement present (Psych) Assessment & Plan Assessment & Plan (1) URI (upper respiratory infection): Code(s): J06.9 - Acute upper respiratory infection, unspecified Plan: Patient is a 63-year-old male who has been resolving from an apparent bronchitis episode, and now seems to have more of an upper respiratory infection. He has no fever or chills, and no significant sinus tenderness. We discussed starting guaifenesin and benzonatate for the cough, and I wrote him for erythromycin ophthalmic ointment for his conjunctivitis. Pending rapid COVID testing. He will follow up if symptoms persist or worsen Orders: Orders SARS-CoV2/FLU/RSV 07/01/23 R09.89 - Other specified symptoms and signs involving the circulatory and respiratory systems Medications: New guaifenesin 400 mg PO TID PRN 30 tabs 1RF congestion benzonatate 100 mg PO BID-TID PRN 30 caps 0RF cough erythromycin 0.5 inches ophthalmic (eye) TID 3.5 grams 0RF Coding Level of Care Code Est Pt Level 4 (34336) Diagnoses URI (upper respiratory infection) J06.9
[2023-07-01 11:14] VITALS: BP 132/70; PULSE 66; TEMP 36.4; O2SAT 97
== END 2023-07-01 12:04 | disposition home or self-care (01) ==
PROVIDERS: PCP Internal Medicine; Visit Provider Physician Assistant Medical
DX: J06.9 Acute upper respiratory infection, unspecified (principal)
CPT/HCPCS: 99214

== ENCOUNTER 2023-07-01 11:32 | Outpatient (REF) | payer BC, SELFPAY ==
[2023-07-01 14:34] LABS: Influenza A PCR NEGATIVE (Negative); Influenza B PCR NEGATIVE (Negative); Resp Syncy Virus RNA Qual PCR NEGATIVE (Negative); SARS COV2 PCR INHOUSE NEGATIVE (Negative)
== END 2023-07-01 11:33 | disposition home or self-care (01) ==
LOC: HO.LAB 11:32
PROVIDERS: Visit Provider Physician Assistant Medical
DX: R09.89 Other specified symptoms and signs involving the circulatory and respiratory systems (principal); Z20.822 Contact with and (suspected) exposure to COVID-19
CPT/HCPCS: 0241U

== ENCOUNTER 2023-07-23 08:43 | Outpatient (AMB) | payer BC, SELFPAY ==
[2023-07-23 08:47] VITALS: BP 130/86; PULSE 49; O2SAT 99; BMI 28.8
--- NOTE | 2023-07-23 08:47 | MHC.PC.OV ---
Vital Signs 07/23/23 08:47 Height 5 ft 9 in Weight 195 lb BMI 28.8 BP 130/86 Blood Pressure Location Lt brachial Position Sitting Pulse 49 L Pulse Source Pulse Oximeter Temp Source Skin Pulse Oximetry (%) 99 Oxygen Delivery Method Room Air Intake Visit Reasons: Annual Exam Intake Note: Patient is here today for a physical. 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 Allergies No Known Allergies [No Known Allergies*] Allergy (Verified 07/23/23 08:48) Medication List - Last Reconciled 07/23/23 by Chucky Martinez MD ascorbate calcium (vitamin C) 1 g PO DAILY benzonatate 100 mg PO BID-TID PRN cholecalciferol (vitamin D3) 25 mcg PO DAILY guaifenesin 400 mg PO TID PRN ketoconazole 2% 1 appl topical DAILY lisinopril 30 mg PO DAILY metronidazole 0.75% (MetroCream) 1 appl topical BEDTIME Tobacco use date assessed: 07/23/23 Fall risk assessment: No Falls in past year Last assessed Fall Risk: 07/23/23 Dental Screening Dental Screen Date: 07/23/23 Did you have a dental visit in the last 12 months?: Yes Did you have a dental problem in the last 6 months where you did not have access to dental care?: No Was dental information given to patient?: Patient has dentist HPI Annual Exam HPI Details 63-year-old overweight male with diabetes mellitus controlled hypertension hypercholesterolemia coming in for physical exam last seen in May 2023. Colonoscopy is up-to-date. Review of the notes in June was in the [facility] for an upper respiratory tract infection was given erythromycin ophthalmic as well as symptomatic treatment. occ light headed [facility] Medical History Abdominal pain Cholelithiasis Closed fracture of distal clavicle Colon cancer screening Degenerative disc disease Diverticular disease Family history of hemochromatosis Hand fracture, right Hemorrhoid Hemorrhoids Hypercholesterolemia Hypertension Inguinal hernia Irritable bowel syndrome Knee osteoarthritis Localized swelling, mass and lump, neck Obesity (BMI 30-39.9) Vitamin D deficiency Watery eyes Surgical History History of appendectomy History of arthroplasty of left knee History of arthroplasty of right knee History of repair of hiatal hernia History of vasectomy Family History (Updated 07/23/23 @ 09:23 by Chucky Martinez MD) Father Hypertension Myocardial infarct Mother Lung cancer Myocardial infarct Son Cancer Brother Bladder cancer Hypertension Hemochromatosis Myocardial infarct Social History (Updated 07/23/23 @ 09:24 by Chucky Martinez MD) Housing: House Alcohol intake: current Alcohol intake frequency: holidays/special occasions only Patient Tobacco Use Status: Never used Tobacco e-Cigarette/Vaping Use: Never Used Second Hand Smoke Exposure: No Current occupational status: employed Cognitive needs: No Hearing needs: No Vision needs: No Questionnaire PHQ-9 Over the last 2 weeks, how often have you been bothered by any of the following problems? 1. Little interest or pleasure in doing things: not at all 2. Feeling down, depressed, or hopeless: not at all 3. Trouble falling or staying asleep, or sleeping too much: not at all 4. Feeling tired or having little energy: not at all 5. Poor appetite or overeating: not at all 6. Feeling bad about yourself - or that you are a failure or have let yourself or your family down: not at all 7. Trouble concentrating on things, such as reading the newspaper or watching television: not at all 8. Moving or speaking so slowly that other people could have noticed. Or the opposite - being so fidgety or restless that you have been moving around a lot more than usual: not at all 9. Thoughts that you would be better off or of hurting yourself in some way: not at all Total score: 0 Depression Screening Interpretation: Negative Source: Developed by Drs. Esteban Han, Brandi Brandon, Chano Bahena and colleagues, with an educational jong from [employer]. Thrive Questionnaire Date Thrive assessed: 11/23/22 AUDIT C Alcohol Use Questionnaire (AUDIT-C) 1. How often do you have a drink containing alcohol?: 2-4 times a month 2. How many drinks containing alcohol do you have on a typical day when you are drinking?: 1 or 2 3. How often do you have six or more drinks on one occasion?: Never Total Score: 2 MARILYN-7 AMB Questionnaire MARILYN-7 Date MARILYN - 7 assessed: 07/23/23 Feeling nervous, anxious, or on edge: 0 = Not at all Not being able to stop or control worryin = Not at all Worrying too much about different things: 0 = Not at all Trouble relaxin = Not at all Being so restless that it is hard to sit still: 0 = Not at all Becoming easily annoyed or irritable: 0 = Not at all Feeling afraid as if something awful might happen: 0 = Not at all Total MARILYN-7 score (0-4 normal; 5-9 mild; 10-14 moderate; 15-21 severe): 0 Source: Developed by Drs. Esteban Han, Brandi Brandon, Chano Bahena and colleagues, with an educational jong from [employer]. Review of Systems Const Denies poor appetite and Denies weakness Eyes Denies no additional complaints ENT Reports Normal hearing present, Denies dizziness, Denies nasal congestion, Denies tinnitus and Denies sore throat Card Denies chest pain, Denies syncope, Denies rapid heart rate and Denies dyspnea Resp Denies cough and Denies dyspnea GI Denies change in stool character, Reports constipation, Denies diarrhea, Denies nausea and Denies vomiting Denies dysuria and Denies urinary frequency Neuro Reports Normal hearing present, Denies confusion, Denies dizziness, Denies syncope and Denies weakness Psych Denies confusion Physical exam (Primary Care) Vital Signs: Last Vital Signs Pulse 49 L 07/23/23 08:47 BP 130/86 07/23/23 08:47 Pulse Ox 99 07/23/23 08:47 Oxygen Delivery Method Room Air 07/23/23 08:47 Next steps: guaiac negative prostate N pedal pulses and pin prick good BMI result Body Mass Index 28.8 Tobacco/Smoking Status: Tobacco use Status Tobacco use date assessed 07/23/23 07/23/23 08:48 Patient Tobacco Use Status Never used Tobacco 07/23/23 08:48 e-Cigarette/Vaping Use Never Used 07/23/23 08:48 PHQ-9: PHQ-9 Score PHQ-9: Total score 0 07/23/23 08:52 Depression Screening Interpretation: Negative Thrive Assessment: Date of Thrive Assessment Date Thrive assessed 11/23/22 07/23/23 08:48 Const General: alert and awake; No confusion Orientation/consciousness: No confusion HENMT Head: Yes normocephalic Ears: external ears normal and TM's normal bilaterally Face and sinus: Yes normal facial exam Mouth: moist mucous membranes Throat: Yes tonsils normal Eyes Conjunctivae: conjunctivae normal Pupils: Equal, round and reactive pupils present and Pupil accommodation reflex normal Direct Ophthalmoscopy: normal light reflex Neck Neck: No lymphadenopathy Thyroid: Thyroid normal Chest Chest palpation & inspection: normal inspection of the chest Resp Effort & Inspection: normal respiratory effort and no audible wheezes Auscultation: clear to auscultation bilaterally, no crackles, no wheezes and lung sounds not diminished Cardio Rate: regular rate Rhythm: regular rhythm Peripheral pulses: radial pulses present and dorsalis pedis present GI Palpation (GI): no masses Auscultation: normal bowel sounds and normoactive bowel sounds Male General Exam: Yes normal external exam Skin General skin exam: no rashes or lesions noted Rashes: no rashes Neuro General: deep tendon reflexes 2+ bilaterally and No confusion Cranial nerves: Yes Equal, round and reactive pupils present, Yes Midline tongue present, Yes Normal hearing present and Yes Ability to bilaterally elevate shoulders present Cognition (Neuro): normal cognition Gait exam (Neuro): Normal gait present Motor exam (neuro): 5/5 motor strength present throughout Deep tendon reflexes (DTR's): Right brachioradialis reflex intensity grade: 2+, Left brachioradialis reflex intensity grade: 2+, Right patellar reflex intensity grade: 2+ and Left patellar reflex intensity grade: 2+ Extrem General: No edema Assessment and Plan Assessment & Plan (1) Annual physical exam: Code(s): Z00.00 - Encounter for general adult medical examination without abnormal findings (2) Overweight (BMI 25.0-29.9): Code(s): E66.3 - Overweight Plan: Continue with diet and exercise (3) Type 2 diabetes mellitus with hyperglycemia: Comment: Gabriel Ramirez Code(s): E11.65 - Type 2 diabetes mellitus with hyperglycemia Plan: Decrease the amount of carbohydrate intake, pasta, bread, rice and potatoes are all sugar and that is aside from all the sweet stuff, remember that fruits are good but they are Sweet also. Hemoglobin A1c goal of less than 6.5. Patient is on diet control (4) Hypertension: Code(s): I10 - Essential (primary) hypertension Plan: Continue with blood pressure medication. Decrease salt intake and exercise patient is on lisinopril 30 mg once a day (5) Hypercholesterolemia: Code(s): E78.00 - Pure hypercholesterolemia, unspecified Plan: Avoid fried foods, chicken skin, eggs, butter margarine, pastries and meat. Be it pork or beef they have a lot of cholesterol LDL goal of less than 100 and the last blood work was done in May 2020 Orders: Orders Free T4 (Free Thyroxine) 6 Months E11.65 - Type 2 diabetes mellitus with hyperglycemia Magnesium 6 Months E11.65 - Type 2 diabetes mellitus with hyperglycemia Complete Blood Count Auto Diff 6 Months E11.65 - Type 2 diabetes mellitus with hyperglycemia Comprehensive Met. Panel 6 Months E11.65 - Type 2 diabetes mellitus with hyperglycemia Thyroid Stimulating Hormone 6 Months E11.65 - Type 2 diabetes mellitus with hyperglycemia Vitamin B12 and Folate 6 Months E11.65 - Type 2 diabetes mellitus with hyperglycemia Prostate Specific Antigen Scr 6 Months E11.65 - Type 2 diabetes mellitus with hyperglycemia Lipid Panel 6 Months E11.65 - Type 2 diabetes mellitus with hyperglycemia, E78.00 - Pure hypercholesterolemia, unspecified Coding Level of Care Code Est Pt Prev Care 40-64y(32467) Diagnoses Annual physical exam Z00.00 Overweight (BMI 25.0-29.9) E66.3 Type 2 diabetes mellitus with hyperglycemia E11.65 Hypertension I10 Hypercholesterolemia E78.00
== END 2023-07-23 09:51 | disposition home or self-care (01) ==
PROVIDERS: PCP Internal Medicine; Visit Provider Internal Medicine
DX: Z00.00 Encounter for general adult medical examination without abnormal findings (principal); E66.3 Overweight; E11.65 Type 2 diabetes mellitus with hyperglycemia; I10 Essential (primary) hypertension; E78.00 Pure hypercholesterolemia, unspecified
CPT/HCPCS: 99396

== ENCOUNTER 2023-08-04 15:44 | Outpatient (AMB) | payer BC, SELFPAY ==
[2023-08-04 15:50] VITALS: BP 140/82; PULSE 52; O2SAT 99; BMI 28.5
--- NOTE | 2023-08-04 15:50 | MHC.PC.OV ---
Vital Signs 08/04/23 15:50 Height 5 ft 9 in Weight 193 lb BMI 28.5 BP 140/82 H Blood Pressure Location Lt brachial Position Sitting Pulse 52 Pulse Source Pulse Oximeter Temp Source Skin Pulse Oximetry (%) 99 Oxygen Delivery Method Room Air Intake Visit Reasons: [facility] 07/31/23 Fall/Lower back Fracture Intake Note: Patient is here to follow-up after a visit the emergency department at [facility] [place] on 07/31/23 Allergies No Known Allergies [No Known Allergies*] Allergy (Verified 08/04/23 16:03) Medication List - Last Reconciled 08/04/23 by MELVIN Sharif ascorbate calcium (vitamin C) 1 g PO DAILY benzonatate 100 mg PO BID-TID PRN cholecalciferol (vitamin D3) 25 mcg PO DAILY guaifenesin 400 mg PO TID PRN ibuprofen 600 mg PO Q6H PRN ketoconazole 2% 1 appl topical DAILY lisinopril 30 mg PO DAILY Tobacco use date assessed: 08/04/23 Fall risk assessment: 1 Fall in past year Last assessed Fall Risk: 08/04/23 HPI [facility] 07/31/23 Fall/Lower back Fracture HPI Details Patient is a 63-year-old male presents today for an office visit to follow-up after [facility] ED visit 07/31/2023 due to fall. Patient of Dr. Martinez. No discharge summary is available, this was requested prior to visit. Patient was able to bring 1 page from his discharge paperwork. Patient reports that he was cleaning his house and then he moved a box a 80-100 lb and fell back on tree stump and his started with numbness in his low back, he was laying on the ground for 15 minutes and then ambulance was called by his . Patient did have imaging of his spine. CT scan spine reveals mild L2 compression fracture of vertebral body, no other acute abnormality within cervical, thoracic or lumbar spine. CT head shows no acute intracranial pathology. X-ray of left hand reveals no fracture or dislocation. Today, patient reports that low back pain is improving. He reports that his low back is sore. No numbness or tingling, no changes in bowel/bladder. He reports taking Motrin 600 mg every 6 hours as needed and Tylenol as needed with improvement in pain. He also uses lidocaine patch with improvement. He also has left arm scratch from a nail when falling, patient did have tetanus vaccine in the hospital. [facility] Medical History Colon cancer screening Localized swelling, mass and lump, neck Hemorrhoid Watery eyes Hemorrhoids Diverticular disease Irritable bowel syndrome Knee osteoarthritis Cholelithiasis Family history of hemochromatosis Vitamin D deficiency Abdominal pain Degenerative disc disease Hand fracture, right Closed fracture of distal clavicle Inguinal hernia Obesity (BMI 30-39.9) Hypercholesterolemia Hypertension Surgical History History of repair of hiatal hernia History of arthroplasty of right knee History of vasectomy History of arthroplasty of left knee History of appendectomy Family History Father Hypertension Myocardial infarct Mother Lung cancer Myocardial infarct Son Cancer Brother Bladder cancer Hypertension Hemochromatosis Myocardial infarct Social History Housing: House Alcohol intake: current Alcohol intake frequency: holidays/special occasions only Patient Tobacco Use Status: Never used Tobacco e-Cigarette/Vaping Use: Never Used Second Hand Smoke Exposure: No Current occupational status: employed Cognitive needs: No Hearing needs: No Vision needs: No Questionnaire Thrive Questionnaire Date Thrive assessed: 11/23/22 AUDIT C Alcohol Use Questionnaire (AUDIT-C) 1. How often do you have a drink containing alcohol?: 2-4 times a month 2. How many drinks containing alcohol do you have on a typical day when you are drinking?: 1 or 2 3. How often do you have six or more drinks on one occasion?: Never Total Score: 2 Score Reviewed/Action Taken: No MARILYN-7 AMB Questionnaire MARILYN-7 Date MARILYN - 7 assessed: 07/23/23 Source: Developed by Drs. Esteban Han, Brandi Brandon, Chano Bahena and colleagues, with an educational jong from [employer]. Review of Systems Const Denies body aches, Denies chills, Denies fever(s) and Denies headache(s) ENT Denies dizziness, Denies otalgia, Denies headache(s), Denies nasal discharge, Denies sinus pain and Denies sore throat Card Denies chest pain, Denies edema, Denies lightheadedness and Denies dyspnea Resp Denies cough, Denies dyspnea and Denies wheezing GI Denies abdominal pain and Denies vomiting Denies dysuria Musc Reports back pain, Denies myalgias, Denies numbness and Denies tingling Skin/Breast Reports as per HPI and Denies rash Neuro Denies dizziness, Denies headache(s), Denies numbness and Denies tingling Aller/Immun Denies wheezing Physical exam (Primary Care) Vital Signs: Last Vital Signs Pulse 52 08/04/23 15:50 BP 140/82 H 08/04/23 15:50 Pulse Ox 99 08/04/23 15:50 Oxygen Delivery Method Room Air 08/04/23 15:50 BMI result Body Mass Index 28.5 Tobacco/Smoking Status: Tobacco use Status Tobacco use date assessed 08/04/23 08/04/23 15:58 Patient Tobacco Use Status Never used Tobacco 08/04/23 15:52 e-Cigarette/Vaping Use Never Used 08/04/23 15:52 Thrive Assessment: Date of Thrive Assessment Date Thrive assessed 11/23/22 08/04/23 15:52 Const General: cooperative and no acute distress Orientation/consciousness: patient oriented x3 HENMT Head: Yes normocephalic and Yes atraumatic Mouth: oropharynx normal and moist mucous membranes Throat: Yes posterior oropharynx normal Eyes General: appearance normal, both eyes and all related structures Pupils: Equal, round and reactive pupils present Neck Neck: Yes normal visual inspection and Yes full ROM Resp Effort & Inspection: normal respiratory effort and able to speak in complete sentences Auscultation: clear to auscultation bilaterally, no crackles, no rales, no rhonchi and no wheezes Cardio Rate: regular rate Rhythm: regular rhythm Heart sounds: S1 normal heart sound present and S2 normal heart sound present GI Auscultation: normal bowel sounds Back/Spine/Pelvis Thoracic/Lumbar Spine: thoracic and lumbar spine normal to inspection, paraspinal muscle tenderness (Bilateral lumbar aspect), No thoracic spinal tenderness and lumbar spinal tenderness Skin Other: Left arm with linear scab, no signs of infection noted, healing well General skin exam: no rashes or lesions noted Neuro General: patient oriented x3 Cranial nerves: Yes Equal, round and reactive pupils present Gait exam (Neuro): Normal gait present Extrem General: Yes full ROM and No edema Assessment and Plan Assessment & Plan (1) Status post fall: Code(s): Z91.81 - History of falling (2) Compression fracture of L2 vertebra: Code(s): S32.020A - Wedge compression fracture of second lumbar vertebra, initial encounter for closed fracture Plan: Patient reports that back pain is improving. Patient is to continue [id number] Motrin p.r.n. and [id number] Tylenol p.r.n.. Patient is to continue lidocaine patch p.r.n.. Patient declined physical therapy referral. Notify provider if no improvement in pain in the next couple weeks. Encouraged ice packs couple times per day p.r.n. Patient agreed with the plan. Signs and symptoms reviewed when to notify provider or go to the emergency department. Orders: Orders XR DEXA axial skeleton Today S32.020A - Wedge compression fracture of second lumbar vertebra, initial encounter for closed fracture Coding Level of Care Code Est Pt Level 3 (99192) Diagnoses Status post fall Z91.81 Compression fracture of L2 vertebra S32.020A
== END 2023-08-04 17:07 | disposition home or self-care (01) ==
PROVIDERS: PCP Internal Medicine; Visit Provider Nurse Practitioner Family
DX: Z91.81 History of falling (principal); S32.020A Wedge compression fracture of second lumbar vertebra, initial encounter for closed fracture
CPT/HCPCS: 99213

== ENCOUNTER 2023-08-25 13:34 | Outpatient (AMB) | payer BC, SELFPAY ==
[2023-08-25 13:41] VITALS: BP 144/90; PULSE 62; O2SAT 98; BMI 28.6
--- NOTE | 2023-08-25 13:41 | A.OFFPC_ITS ---
Vital Signs 08/25/23 13:41 08/25/23 14:09 Height 5 ft 9 in Weight 194 lb BMI 28.6 BP 144/90 H 140/84 H Blood Pressure Location Lt brachial Lt brachial Position Sitting Sitting Pulse 62 Pulse Source Pulse Oximeter Temp Source Skin Pulse Oximetry (%) 98 Oxygen Delivery Method Room Air Intake Visit Reasons: f/u Allergies No Known Allergies [No Known Allergies*] Allergy (Verified 08/25/23 14:01) Medication List - Last Reconciled 08/25/23 by MELVIN Sharif ascorbate calcium (vitamin C) 1 g PO DAILY cholecalciferol (vitamin D3) 25 mcg PO DAILY ibuprofen 600 mg PO Q6H PRN ketoconazole 2% 1 appl topical DAILY lisinopril 30 mg PO DAILY Tobacco use date assessed: 08/25/23 Fall risk assessment: No Falls in past year Last assessed Fall Risk: 08/25/23 HPI f/u HPI Details Patient is a 63-year-old male who presents today for a routine follow- up. Patient of Dr. Martinez. Medical history significant for diabetes type 2, hypertension, hypercholesterolemia, overweight, history of compression fracture of L2 vertebra 07/31/2023-patient reports that back pain is improving-he does take ibuprofen p.r.n.-will be having bone density screen - not interested in phy sical therapy referral. No shortness of breath or chest pain. Reports compliance with blood pressure medication. Up-to-date with diabetic eye exam, next one 11/2023. PFS Medical History Colon cancer screening Localized swelling, mass and lump, neck Hemorrhoid Watery eyes Hemorrhoids Diverticular disease Irritable bowel syndrome Knee osteoarthritis Cholelithiasis Family history of hemochromatosis Vitamin D deficiency Abdominal pain Degenerative disc disease Hand fracture, right Closed fracture of distal clavicle Inguinal hernia Obesity (BMI 30-39.9) Hypercholesterolemia Hypertension Surgical History History of repair of hiatal hernia History of arthroplasty of right knee History of vasectomy History of arthroplasty of left knee History of appendectomy Family History Father Hypertension Myocardial infarct Mother Lung cancer Myocardial infarct Son Cancer Brother Bladder cancer Hypertension Hemochromatosis Myocardial infarct Social History Housing: House Alcohol intake: current Alcohol intake frequency: holidays/special occasions only Patient Tobacco Use Status: Never used Tobacco e-Cigarette/Vaping Use: Never Used Second Hand Smoke Exposure: No Current occupational status: employed Cognitive needs: No Hearing needs: No Vision needs: No Questionnaire Thrive Questionnaire Date Thrive assessed: 11/23/22 AUDIT C Alcohol Use Questionnaire (AUDIT-C) 1. How often do you have a drink containing alcohol?: 2-4 times a month 2. How many drinks containing alcohol do you have on a typical day when you are drinking?: 1 or 2 3. How often do you have six or more drinks on one occasion?: Never Total Score: 2 Score Reviewed/Action Taken: No MARILYN-7 AMB Questionnaire MARILYN-7 Date MARILYN - 7 assessed: 07/23/23 Source: Developed by Drs. Esteban Han, Brandi Brandon, Chano Bahena and colleagues, with an educational jong from [employer]. Review of Systems Const Denies body aches, Denies chills, Denies fever(s) and Denies headache(s) ENT Denies dizziness, Denies otalgia, Denies headache(s), Denies nasal discharge, Denies sinus pain and Denies sore throat Card Denies chest pain, Denies edema, Denies lightheadedness and Denies dyspnea Resp Denies dyspnea and Denies wheezing GI Denies abdominal pain Denies dysuria Musc Reports back pain and Denies myalgias Skin/Breast Denies rash Neuro Denies dizziness and Denies headache(s) Aller/Immun Denies wheezing Physical exam (Primary Care) Vital Signs: Last Vital Signs Pulse 62 08/25/23 13:41 BP 140/84 H 08/25/23 14:09 Pulse Ox 98 08/25/23 13:41 Oxygen Delivery Method Room Air 08/25/23 13:41 BMI result Body Mass Index 28.6 Tobacco/Smoking Status: Tobacco use Status Tobacco use date assessed 08/25/23 08/25/23 13:47 Patient Tobacco Use Status Never used Tobacco 08/25/23 13:47 e-Cigarette/Vaping Use Never Used 08/25/23 13:47 Thrive Assessment: Date of Thrive Assessment Date Thrive assessed 11/23/22 08/25/23 13:47 Const General: cooperative and no acute distress Orientation/consciousness: patient oriented x3 HENMT Head: Yes normocephalic and Yes atraumatic Mouth: oropharynx normal and moist mucous membranes Throat: Yes posterior oropharynx normal Eyes General: appearance normal, both eyes and all related structures Neck Neck: Yes normal visual inspection, Yes full ROM and Yes no lymphadenopathy Resp Effort & Inspection: normal respiratory effort and able to speak in complete sentences Auscultation: clear to auscultation bilaterally, no crackles, no rales, no rhonchi and no wheezes Cardio Rate: regular rate Rhythm: regular rhythm Heart sounds: S1 normal heart sound present and S2 normal heart sound present GI Auscultation: normal bowel sounds Skin General skin exam: no rashes or lesions noted Neuro General: patient oriented x3 Gait exam (Neuro): Normal gait present Extrem General: Yes full ROM and No edema Office Procedures Flu Questionnaire Does the patient have a severe egg allergy?: No Does the patient have severe life threatening allergies?: No Does the patient have a fever or illness today?: No Has the patient ever had Guillain-Slater Syndrome?: No Has the patient ever had any past reaction to a flu shot?: No Results AMB Hemoglobin A1c AMB Hemoglobin A1c 6.7 % Last Edit by DANISHA Lloyd on 08/25/23 13:54 Immunizations flu vacc [id number] 6mos up(PF) 60 mcg(15 mcgx4)/0.5 mL IM syringe Performing Provider: MELVIN Sharif Performing Location: [facility] Administered by: DANISHA Lloyd on 08/25/23 13:54 Dose Route Admin Location Dispensed Lot Number Expiration Date NDC Binding End Stitcher 0.5 mL IM Left Deltoid 0.5 mL [id number] 05/14/24 [id number] [employer] VIS Given Date VIS Provided VIS Publication Date 08/25/23 Single Vaccine 21 Eligibility Eligibility Date Funding Source Not [facility] Eligible 08/25/23 Private Results Reviewed Results Reviewed: Laboratory Last Values Hgb A1c (Clinic) 6.7 % (4.0-6.0) H 08/25/23 13:20 Assessment and Plan Assessment & Plan (1) Compression fracture of L2 vertebra: Comment: 07/31/23 Code(s): S32.020A - Wedge compression fracture of second lumbar vertebra, initial encounter for closed fracture Plan: Patient reports that back pain is improving Not interested in physical therapy referral Patient does take ibuprofen as needed for pain Patient reports that he will be starting doing light stretching exercises Will be having bone density screening (2) Hypercholesterolemia: Code(s): E78.00 - Pure hypercholesterolemia, unspecified Plan: LDL 97 05/2023 Low-cholesterol diet (3) Hypertension: Code(s): I10 - Essential (primary) hypertension Plan: Goal BP equal or less than 140/90 Continue lisinopril 30 mg daily Low-sodium diet and weight loss (4) Type 2 diabetes mellitus with hyperglycemia: Comment: Gabriel Ramirez Code(s): E11.65 - Type 2 diabetes mellitus with hyperglycemia Plan: A1c 6.7 today, previous 6.2, goal less than 7, patient has declined starting diabetes medication. Patient reports that he will be watching his diet better now. Will continue to monitor. Reinforced low-carbohydrate diet and weight loss. Orders: Orders AMB Hemoglobin A1c Today E11.65 - Type 2 diabetes mellitus with hyperglycemia Influenza [id number] Immunization Today Z23 - Encounter for immunization Coding Level of Care Code Est Pt Level 4 (81249) Diagnoses Compression fracture of L2 vertebra S32.020A Hypercholesterolemia E78.00 Hypertension I10 Type 2 diabetes mellitus with hyperglycemia E11.65
[2023-08-25 14:09] VITALS: BP 140/84
== END 2023-08-25 14:15 | disposition home or self-care (01) ==
PROVIDERS: PCP Internal Medicine; Visit Provider Nurse Practitioner Family
DX: S32.020A Wedge compression fracture of second lumbar vertebra, initial encounter for closed fracture (principal); E78.00 Pure hypercholesterolemia, unspecified; I10 Essential (primary) hypertension; E11.65 Type 2 diabetes mellitus with hyperglycemia; Z23 Encounter for immunization
CPT/HCPCS: 83036; 90471; 90686; 99214

== ENCOUNTER 2023-08-31 07:59 | Outpatient (REF) | payer BC, SELFPAY ==
--- NOTE | ~2023-08-31 | MM_ITS ---
EXAMINATION: BONE DENSITOMETRY CLINICAL INDICATION: Wedge compression fracture of 2nd lumbar vertebra. COMPARISON: This is the patient's baseline examination. TECHNIQUE: Using a [employer] DXA System (software version: 13.1) manufactured by [employer], dual-energy x-ray absorptiometry was performed of the lumbar spine and left hip. The images are of good technical quality. Summary results are attached. FINDINGS: LEFT FEMUR, NECK: BMD 0.713 g/cm2, Z-score -1.9, T-score -2.7, osteoporosis. LEFT FEMUR, TOTAL: BMD 0.841 g/cm2, Z-score -1.4, T-score -1.8, osteopenia. AP SPINE L1-L4: BMD 0.958 g/cm2, Z-score -2.0, T-score -2.2, osteopenia. IDENTIFIED RISK FACTORS: History of fracture (adult). HISTORY OF FRACTURE: Spine, wrist. MEDICATIONS: Calcium supplements or multivitamin, vitamin D. MM/XR DEXA axial skeleton IMPRESSION: 1. DIAGNOSIS: Severe osteoporosis based on the lowest T-score value of -2.7 in the femoral neck and history of fracture applying World Health Organization criteria. 2. 10-YEAR FRACTURE RISK PREDICTION, FRAX: According to the guidelines, FRAX calculation should only be performed on patients in the osteopenia bone density category. Therefore, FRAX was not performed on this patient. 3. Treatment Recommendations: NOF guidelines recommend consideration for treatment in postmenopausal women and men age 50 and older presenting with the following: -A hip or vertebral (clinical or morphometric) fracture. -T-score less than or equal to -2.5 at the femoral neck or spine after appropriate evaluation to exclude secondary causes. -Low bone mass at the hip or spine and a 10-year fracture probability by FRAX of greater than or equal to 3% for hip fracture or greater than or equal to 20% for major osteoporotic fracture based on the [place] adapted WHO algorithm. 4. Other Recommendations: All treatment decisions require clinical judgment and consideration of individual patient factors, including patient preferences, comorbidities, previous drug use, risk factors not captured in the FRAX model (e.g. frailty, falls, vitamin D deficiency, increased bone turnover, interval significant decline in bone density) and possible under or overestimation of fracture risk by FRAX. Additional medical evaluation for secondary cause of low bone mineral density may be appropriate. FUTURE SCAN RECOMMENDATION: People with diagnosed cases of osteoporosis or at high risk for fracture should have regular bone mineral density tests. For patients eligible for Medicare, routine testing is allowed once every 2 years. The testing frequency can be increased to one year for patients who have rapidly progressing disease, those who are receiving or discontinuing medical therapy to restore bone mass, or have additional risk factors.
== END 2023-08-31 08:00 | disposition home or self-care (01) ==
LOC: HO.MAMMO 07:59
PROVIDERS: PCP Internal Medicine; Visit Provider Nurse Practitioner Family
DX: Z13.820 Encounter for screening for osteoporosis (principal); S32.020A Wedge compression fracture of second lumbar vertebra, initial encounter for closed fracture
CPT/HCPCS: 77080

== ENCOUNTER 2023-10-14 08:37 | Outpatient (AMB) | payer BC, SELFPAY ==
--- NOTE | 2023-10-14 08:42 | MHC.OFFVIS ---
Intake Vital Signs 10/14/23 08:48 Height 5 ft 9 in Weight 193 lb BMI 28.5 BP 128/70 Blood Pressure Location Lt brachial Position Sitting Intake Visit Reasons: sebaceous cyst of neck Intake Note: This patient presents for an assessment for sebaceous cyst of the neck. Patient c/o; reports pain, reports increase in size. Cutter Inspector Required: No Accompanied by: Self / Same As Patient Allergies No Known Allergies [No Known Allergies*] Allergy (Verified 10/14/23 08:46) Medication List - Last Reconciled 10/14/23 by Brice Faulkner MD ascorbate calcium (vitamin C) 1 g PO DAILY cholecalciferol (vitamin D3) 25 mcg PO DAILY ibuprofen 600 mg PO Q6H PRN ketoconazole 2% 1 appl topical DAILY lisinopril 30 mg PO DAILY HPI sebaceous cyst of neck HPI Details 63-year-old male referred for a cyst on the neck. He says that he has had this for over a year but this has been increasing in size. He says that this been starting to bother him. He denies any drainage or redness. [facility] Medical History (Updated 10/14/23 @ 10:14 by Brice Faulkner MD) Epidermal cyst of neck Colon cancer screening Localized swelling, mass and lump, neck Hemorrhoid Watery eyes Hemorrhoids Diverticular disease Irritable bowel syndrome Knee osteoarthritis Cholelithiasis Family history of hemochromatosis Vitamin D deficiency Abdominal pain Degenerative disc disease Hand fracture, right Closed fracture of distal clavicle Inguinal hernia Obesity (BMI 30-39.9) Hypercholesterolemia Hypertension Surgical History History of repair of hiatal hernia History of arthroplasty of right knee History of vasectomy History of arthroplasty of left knee History of appendectomy Family History Father Hypertension Myocardial infarct Mother Lung cancer Myocardial infarct Son Cancer Brother Bladder cancer Hypertension Hemochromatosis Myocardial infarct Social History Housing: House Alcohol intake: current Alcohol intake frequency: holidays/special occasions only Patient Tobacco Use Status: Never used Tobacco e-Cigarette/Vaping Use: Never Used Second Hand Smoke Exposure: No Current occupational status: employed Cognitive needs: No Hearing needs: No Vision needs: No Review of Systems Const Denies chills and Denies fever(s) Card Denies chest pain, Denies dyspnea and Denies dyspnea on exertion Resp Denies cough, Denies dyspnea and Denies dyspnea on exertion GI Denies hematochezia and Denies change in bowel habits Denies hematuria and Denies difficulty urinating Musc Denies back pain and Denies limited range of motion Neuro Denies focal weakness and Denies convulsions Psych Denies depression and Denies mood swings Physical Exam Vital Signs: Last Vital Signs BP 128/70 10/14/23 08:48 BMI result Body Mass Index 28.5 Const General: comfortable and no acute distress Orientation/consciousness: patient oriented x3 HEENT Other: Posterior neck - note of a cystic mass in the subcutaneous layer, about 2 cm in size, nonfluctuant, not cellulitic, well-defined Neck Neck: Yes no lymphadenopathy Resp Auscultation: clear to auscultation bilaterally Cardio Rhythm: regular rhythm GI Palpation (GI): Soft to palpation, nontender and no guarding Neuro General: patient oriented x3 Assessment & Plan Assessment & Plan (1) Epidermal cyst of neck: Code(s): L72.0 - Epidermal cyst Plan: He has what appears to be an epidermal cyst of the posterior neck. He wants to proceed with excision. I explained the technique of excision under local anesthesia. I reviewed the risks including but not limited to bleeding and infections, as well as the benefits and alternatives. He understands and wants to proceed. This will be scheduled here as an office procedure on his next visit. Coding Level of Care Code New Pt Level 3 (67058) Diagnoses Epidermal cyst of neck L72.0
[2023-10-14 08:48] VITALS: BP 128/70; BMI 28.5
== END 2023-10-14 09:22 | disposition home or self-care (01) ==
PROVIDERS: PCP Internal Medicine; Visit Provider Surgery
DX: L72.0 Epidermal cyst (principal)
CPT/HCPCS: 99203

== ENCOUNTER → 2023-10-14 08:37 | Outpatient (BNVA) | payer BC, SELFPAY | PROVIDERS: PCP Internal Medicine; Visit Provider Surgery ==

== ENCOUNTER 2023-10-20 09:46 | Outpatient (AMB) | payer BC, SELFPAY ==
[2023-10-20 09:47] VITALS: BP 144/77; PULSE 34; BMI 28.5
--- NOTE | 2023-10-20 09:47 | A.OFFVIS_ITS ---
Intake Vital Signs 10/20/23 09:47 Height 5 ft 9 in Weight 193 lb BMI 28.5 BP 144/77 H Blood Pressure Location Rt brachial Position Sitting Pulse 34 L Intake Visit Reasons: Excision of cyst posterior neck Intake Note: This patient presents for in-office procedure for excision of cyst of the posterior neck. Patient c/o; reports no changes or complaints at this time. 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 [facility] Medical History (Updated 10/14/23 @ 10:14 by Brice Faulkner MD) Epidermal cyst of neck Colon cancer screening Localized swelling, mass and lump, neck Hemorrhoid Watery eyes Hemorrhoids Diverticular disease Irritable bowel syndrome Knee osteoarthritis Cholelithiasis Family history of hemochromatosis Vitamin D deficiency Abdominal pain Degenerative disc disease Hand fracture, right Closed fracture of distal clavicle Inguinal hernia Obesity (BMI 30-39.9) Hypercholesterolemia Hypertension Surgical History History of repair of hiatal hernia History of arthroplasty of right knee History of vasectomy History of arthroplasty of left knee History of appendectomy Family History Father Hypertension Myocardial infarct Mother Lung cancer Myocardial infarct Son Cancer Brother Bladder cancer Hypertension Hemochromatosis Myocardial infarct Social History Housing: House Alcohol intake: current Alcohol intake frequency: holidays/special occasions only Patient Tobacco Use Status: Never used Tobacco e-Cigarette/Vaping Use: Never Used Second Hand Smoke Exposure: No Current occupational status: employed Cognitive needs: No Hearing needs: No Vision needs: No Physical Exam Vital Signs: Last Vital Signs Pulse 34 L 10/20/23 09:47 BP 144/77 H 10/20/23 09:47 BMI result Body Mass Index 28.5 Office Procedures Excision Details: Written consent had been given by the patient. He was placed in prone position. The area of the cyst was prepped and draped. Lidocaine 1% was used for local anesthesia. I made an elliptical incision on the skin surrounding this induration using blade 15. This was carried down sharply through the full- thickness of the skin and the subcutaneous fat to excise this entire cyst. This was sent as a specimen. I closed the incision with full-thickness nylon 3-0 interrupted sutures. Dressings were applied. The procedure was completed. He tolerated the procedure well. There were no immediate complications. He was given wound care instructions. [id number] scalp/neck/hands/feet/genitalia 2.1cm-3cm Procedure code (CPT) selection complete Assessment & Plan Assessment & Plan (1) Epidermal cyst of neck: Code(s): L72.0 - Epidermal cyst Plan: Excision was done under local anesthesia. He had no immediate complications. H e was given wound care instructions. He can take Tylenol and ibuprofen for pain. I will see him in the office in 2 weeks to remove the sutures and for wound check. Coding Level of Care Code Procedure Only Diagnoses Epidermal cyst of neck L72.0 CPT Codes Scalp/Neck/Hands/Feet/Genetalia - CPT: 86207-[id number] scalp/neck/hands/feet/genitalia 2.1cm-3cm ([id number])
== END 2023-10-20 10:40 | disposition home or self-care (01) ==
PROVIDERS: PCP Internal Medicine; Visit Provider Surgery
DX: L72.0 Epidermal cyst (principal)
CPT/HCPCS: 11423

== ENCOUNTER 2023-10-20 09:46 | Outpatient (REF) | payer BC, SELFPAY | END 2023-10-20 09:47 | disposition home or self-care (01) | LOC: HO.LNP 09:46 | PROVIDERS: PCP Internal Medicine; Visit Provider Surgery | DX: L72.0 Epidermal cyst (principal) | CPT/HCPCS: 11423; 88304 ==

== ENCOUNTER 2023-11-01 09:05 | Outpatient (AMB) | payer BC, SELFPAY ==
--- NOTE | 2023-11-01 09:06 | MHC.OFFVIS ---
Intake Vital Signs 11/01/23 09:13 Height 5 ft 9 in Weight 193 lb BMI 28.5 BP 169/96 H Blood Pressure Location Rt brachial Position Standing Pulse 61 Intake Visit Reasons: s/p excision of cyst posterior neck Intake Note: This patient presents for a follow-up assessment status post excision of cyst posterior neck. Pt c/o; reports was experiencing swelling and bleeding which has resolved, reports the bleeding was soaking through the bandages but has improved. 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 He tolerated procedure well. He describes some oozing from the area postop but says that this has improved significantly. [facility] Medical History Epidermal cyst of neck Colon cancer screening Localized swelling, mass and lump, neck Hemorrhoid Watery eyes Hemorrhoids Diverticular disease Irritable bowel syndrome Knee osteoarthritis Cholelithiasis Family history of hemochromatosis Vitamin D deficiency Abdominal pain Degenerative disc disease Hand fracture, right Closed fracture of distal clavicle Inguinal hernia Obesity (BMI 30-39.9) Hypercholesterolemia Hypertension Surgical History History of removal of cyst (~10/20/23) History of repair of hiatal hernia History of arthroplasty of right knee History of vasectomy History of arthroplasty of left knee History of appendectomy Family History Father Hypertension Myocardial infarct Mother Lung cancer Myocardial infarct Son Cancer Brother Bladder cancer Hypertension Hemochromatosis Myocardial infarct Social History Housing: House Alcohol intake: current Alcohol intake frequency: holidays/special occasions only Patient Tobacco Use Status: Never used Tobacco e-Cigarette/Vaping Use: Never Used Second Hand Smoke Exposure: No Current occupational status: employed Cognitive needs: No Hearing needs: No Vision needs: No Review of Systems Const Denies chills and Denies fever(s) Card Denies chest pain, Denies dyspnea and Denies dyspnea on exertion Resp Denies cough, Denies dyspnea and Denies dyspnea on exertion GI Denies hematochezia and Denies change in bowel habits Denies hematuria and Denies difficulty urinating Musc Denies back pain and Denies limited range of motion Neuro Denies focal weakness and Denies convulsions Psych Denies depression and Denies mood swings Physical Exam Vital Signs: Last Vital Signs Pulse 61 11/01/23 09:13 BP 169/96 H 11/01/23 09:13 BMI result Body Mass Index 28.5 Const General: comfortable and no acute distress Neck Other: Excision site on the posterior neck is well healed, not infected, sutures intact Assessment & Plan Assessment & Plan (1) Epidermal cyst of neck: Code(s): L72.0 - Epidermal cyst Plan: Status post excision. The surgical site is well healed. I removed the sutures. I applied Steri-Strips. His path report shows a ruptured epidermal cyst. He can follow up on a p.r.n. basis. Coding Level of Care Code Global (64495) Diagnoses Epidermal cyst of neck L72.0
[2023-11-01 09:13] VITALS: BP 169/96; PULSE 61; BMI 28.5
== END 2023-11-01 09:31 | disposition home or self-care (01) ==
PROVIDERS: PCP Internal Medicine; Visit Provider Surgery
DX: L72.0 Epidermal cyst (principal)
CPT/HCPCS: 99024

== ENCOUNTER → 2023-11-01 09:05 | Outpatient (BNVA) | payer BC, SELFPAY | PROVIDERS: PCP Internal Medicine; Visit Provider Surgery ==

== ENCOUNTER 2023-12-13 08:56 | Outpatient (AMB) | payer BC, SELFPAY ==
[2023-12-13 09:32] VITALS: BP 140/100; PULSE 60; TEMP 36.4; O2SAT 98; BMI 28.4
--- NOTE | 2023-12-13 09:32 | MHC.OFFWIV ---
Intake Vital Signs 12/13/23 09:32 Height 5 ft 9 in Weight 192 lb BMI 28.4 BP 140/100 H Blood Pressure Location Lt brachial Position Sitting Pulse 60 Pulse Source Pulse Oximeter Temp 97.6 F Temp Source Temporal Artery Scan Pulse Oximetry (%) 98 Oxygen Delivery Method Room Air Intake Visit Reasons: EST/ear pain right side ([phone]) Intake Note: pt is here today for ear pain rt side started 3 days ago Patient Tobacco Use Status: Never used Tobacco Allergies No Known Allergies [No Known Allergies*] Allergy (Verified 12/13/23 09:33) Do you need a note to return to daycare/school/sports/work: No HPI HPI Comments History of Present Illness Details presents to walkin today with complaints of right ear pain. Denies hearing loss, drainage from ear, ringing in the ear, dizziness, syncope. Patient denies sore throat, cough, fever, vomiting, diarrhea, headache. PFSH Medical History Epidermal cyst of neck Colon cancer screening Localized swelling, mass and lump, neck Hemorrhoid Watery eyes Hemorrhoids Diverticular disease Irritable bowel syndrome Knee osteoarthritis Cholelithiasis Family history of hemochromatosis Vitamin D deficiency Abdominal pain Degenerative disc disease Hand fracture, right Closed fracture of distal clavicle Inguinal hernia Obesity (BMI 30-39.9) Hypercholesterolemia Hypertension Surgical History History of removal of cyst (~10/20/23) History of repair of hiatal hernia History of arthroplasty of right knee History of vasectomy History of arthroplasty of left knee History of appendectomy Family History Father Hypertension Myocardial infarct Mother Lung cancer Myocardial infarct Son Cancer Brother Bladder cancer Hypertension Hemochromatosis Myocardial infarct Social History Housing: House Alcohol intake: current Alcohol intake frequency: holidays/special occasions only Patient Tobacco Use Status: Never used Tobacco e-Cigarette/Vaping Use: Never Used Second Hand Smoke Exposure: No Current occupational status: employed Cognitive needs: No Hearing needs: No Vision needs: No Review of Systems Const All systems reviewed & are unremarkable except as noted in HPI and below Physical Exam Vital Signs: Last Vital Signs Temp 97.6 F 01/29/24 09:32 Pulse 60 12/13/23 09:32 BP 140/100 H 12/13/23 09:32 Pulse Ox 98 12/13/23 09:32 Oxygen Delivery Method Room Air 12/13/23 09:32 BMI result Body Mass Index 28.4 General: awake, alert, oriented. Answers questions appropriately. Fully engaged in examination. Skin: warm, dry, intact HEENT: Normocephalic. Hearing intact. right TM erythematous, cloudy. left TM normal to visual inspection. Cardiac: External chest normal in appearance. Respiratory: No cough, audible wheezing or stridor. Abdomen: without gross distension. MS: No obvious swelling or deformities. Neurological: Oriented to person, place, time and situation. Thought process intact. Psychiatric: Appropriate mood and affect. Good judgment and insight. Assessment & Plan Assessment & Plan (1) Otitis media, right: Code(s): H66.91 - Otitis media, unspecified, right ear Plan presented to walkin today with complaints of right ear pain Augmentin DS BID for 7 days. Drink plenty of fluids, avoid getting anything in the ear, tylenol/motrin as needed. All questions and concerns were addressed during the visit, patient agrees with the plan. Follow up with pcp or in walkin for any new or worsening symptoms. Medications: New amoxicillin-pot clavulanate 875-125 mg 1 tab PO BID 14 tabs 0RF Coding Level of Care Code Est Pt Level 4 (05008) Diagnoses Otitis media, right H66.91
== END 2023-12-13 10:25 | disposition home or self-care (01) ==
PROVIDERS: PCP Internal Medicine; Visit Provider Registered Nurse Emergency
DX: H66.91 Otitis media, unspecified, right ear (principal)
CPT/HCPCS: 99213

== ENCOUNTER 2023-12-20 14:18 | Outpatient (AMB) | payer BC, SELFPAY ==
[2023-12-20 14:24] VITALS: BP 120/76; PULSE 51; TEMP 36.3; O2SAT 99; BMI 27.6
--- NOTE | 2023-12-20 14:24 | AM.OFFWIN_ITS ---
Intake Vital Signs 12/20/23 14:24 Height 5 ft 9 in Weight 84.822 kg BMI 27.6 BP 120/76 Blood Pressure Location Lt brachial Position Sitting Pulse 51 Pulse Source Pulse Oximeter Temp 97.4 F Temp Source Temporal Artery Scan Pulse Oximetry (%) 99 Oxygen Delivery Method Room Air Intake Visit Reasons: EST/antibiotics not working(lobby) Intake Note: pt is here today for antibiotics not working Patient Tobacco Use Status: Never used Tobacco Allergies No Known Allergies [No Known Allergies*] Allergy (Verified 12/20/23 14:25) Do you need a note to return to daycare/school/sports/work: No HPI HPI Comments History of Present Illness Details 63-year-old male presents right-sided ea r pain for the past few weeks. Patient reports he recently completed a course of Augmentin with little to no relief. He reports his ear is still hurting him and he feels like he has not improving. Denies hearing loss, drainage from your, ringing in the ear, dizziness, syncope, fevers, chills, chest pain, shortness of breath, recent upper respiratory infection. Physical exam with erythematous and bulging right tympanic membrane. No mastoid tenderness. Discomfort with manipulation of right external ear. History and physical exam still concerning for otitis media. Will trial d oxycycline as well as Ciprodex drops. Educated patient on diagnosis and treatment plan, answered all question, patient verbalizes understanding. At this time patient will be discharged home, advised to return with new or worsening symptoms. Educated on worrisome signs and symptoms and when to return. At this time I feel comfortable discharge home. [facility] Medical History Epidermal cyst of neck Colon cancer screening Localized swelling, mass and lump, neck Hemorrhoid Watery eyes Hemorrhoids Diverticular disease Irritable bowel syndrome Knee osteoarthritis Cholelithiasis Family history of hemochromatosis Vitamin D deficiency Abdominal pain Degenerative disc disease Hand fracture, right Closed fracture of distal clavicle Inguinal hernia Obesity (BMI 30-39.9) Hypercholesterolemia Hypertension Surgical History History of removal of cyst (~10/20/23) History of repair of hiatal hernia History of arthroplasty of right knee History of vasectomy History of arthroplasty of left knee History of appendectomy Family History Father Hypertension Myocardial infarct Mother Lung cancer Myocardial infarct Son Cancer Brother Bladder cancer Hypertension Hemochromatosis Myocardial infarct Social History Housing: House Alcohol intake: current Alcohol intake frequency: holidays/special occasions only Patient Tobacco Use Status: Never used Tobacco e-Cigarette/Vaping Use: Never Used Second Hand Smoke Exposure: No Current occupational status: employed Cognitive needs: No Hearing needs: No Vision needs: No Review of Systems Const All systems reviewed & are unremarkable except as noted in HPI and below Physical Exam Vital Signs: Last Vital Signs Temp 97.4 F 12/20/23 14:24 Pulse 51 12/20/23 14:24 BP 120/76 12/20/23 14:24 Pulse Ox 99 12/20/23 14:24 Oxygen Delivery Method Room Air 12/20/23 14:24 BMI result Body Mass Index 27.6 vss Appearance: Alert.? Oriented X3.? No acute distress.? Head: Normocephalic, atraumatic, no step-offs or deformities Ear: erythematous and bulging right tympanic membrane. No mastoid tenderness. Discomfort with manipulation of right external ear. Eyes: Pupils equal, round and reactive to light.? CVS: Normal heart rate and rhythm.? Pulses normal.? Respiratory: No respiratory distress.? Breath sounds normal.? Abdomen: Soft and nontender.? Skin: Skin warm and dry.? Normal skin color.? Normal skin turgor.? Extremities: No lower extremity edema.? No calf ttp. 5/5 strength to bilateral upper and lower extremities Neuro: Oriented X 3.? No motor deficit.? No sensory deficit. CN 2-12 intact Assessment & Plan Assessment & Plan (1) Otitis media, right: Code(s): H66.91 - Otitis media, unspecified, right ear (2) Otitis externa: Code(s): H60.90 - Unspecified otitis externa, unspecified ear Plan Take your medications as prescribed. If you were prescribed antibiotics today, it is important that you take your medication to their entirety, do not skip any doses, do not finish them early. Follow-up with your primary care provider this week. Return to the emergency department with new or worsening symptoms. Such as fevers, chills, chest pain, shortness of breath, nausea, vomiting, dizziness, headache, vision changes, lethargy In case of emergency call 911 Medications: New doxycycline hyclate 100 mg PO BID 14 caps 0RF 7 days ciprofloxacin-dexamethasone 0.3-0.1 % 4 drps otic (ears) BID 7.5 mL 0RF 7 days Coding Level of Care Code Est Pt Level 3 (14855) Diagnoses Otitis media, right H66.91 Otitis externa H60.90
== END 2023-12-20 15:14 | disposition home or self-care (01) ==
PROVIDERS: PCP Internal Medicine; Visit Provider Physician Assistant
DX: H66.91 Otitis media, unspecified, right ear (principal); H60.91 Unspecified otitis externa, right ear
CPT/HCPCS: 99213

== ENCOUNTER 2024-02-22 09:14 | Outpatient (REF) | payer BC, SELFPAY ==
[2024-02-22 09:39] LABS: MANUAL DIFF FLAG NO
[2024-02-22 09:57] LABS: Basophils Percent Auto 0.9 % (0-2); Eosinophils Absolute Auto 0.1 X10*3/uL (0.0-0.4); Eosinophils Percent Auto 2.9 % (0-4); Hematocrit 41.8 % (42.0-52.0); Hemoglobin 14.2 g/dl (14.0-18.0); Imm Gran Abs Auto 0.02 X10*3/uL (0.00-0.03); Imm Gran Pct Auto 0.4 % (0.0-0.4); Lymphocytes Absolute Auto 1.2 X10*3/uL (1.2-4.9); Lymphocytes Percent Auto 27.1 % (20-40); Mean Corpuscular Hemoglobin 31.1 pg (27.0-33.0); Mean Corpuscular Volume 91.7 fL (80.0-98.0); Mean Platelet Volume 11.2 fL (9.4-12.4); Monocytes Absolute Auto 0.3 X10*3/uL (0.1-1.2); Monocytes Percent Auto 7.1 % (2-11); Neutrophils Absolute Auto 2.8 x10*3/uL (2.0-8.3); Neutrophils Percent Auto 61.6 % (45-73); Platelet Count 164 X10*3/uL (160-400); Red Blood Count 4.56 X10*6/uL (4.60-5.80); Red Cell Distribution Width 14.1 % (11.0-16.0); White Blood Count 4.5 X10*3/uL (4.8-10.8)
[2024-02-22 11:21] LABS: Alanine Aminotransferase 32 U/L (0-40); Albumin Level 4.2 g/dL (3.5-5.0); Alkaline Phosphatase 67 U/L (39-117); Anion Gap 12 (12-20); Aspartate Amino Transferase 27 U/L (5-37); Bilirubin Total 0.6 mg/dL (0.0-1.0); Blood Urea Nitrogen 14 mg/dL (9-16); Carbon Dioxide 26 mmol/L (22-29); Chloride 106 mmol/L (96-108); Cholesterol 146 mg/dL (<200); Estimated Glomerular Filt Rate > 60; Glucose Random 132 mg/dL (60-115); HDL Cholesterol 53 mg/dL (>40); LDL Cholesterol Calculated 82 mg/dL (<100); Magnesium 2.2 mg/dL (1.6-2.6); Sodium 140 mmol/L (135-145); Total Protein 7.1 g/dL (6.5-8.0); Triglycerides 58 mg/dL (<150)
[2024-02-22 11:38] LABS: Free T4 (Free Thyroxine) 0.93 ng/dL (0.71-1.85); Thyroid Stimulating Hormone 0.85 uIU/mL (0.32-4.0)
[2024-02-22 12:06] LABS: Folate 12.7 ng/mL (> or = 4.0); Prostate Specific Antigen Scr 0.69 ng/mL (<0.05-4.0); Vitamin B12 1007 pg/mL (200-900)
== END 2024-02-22 09:15 | disposition home or self-care (01) ==
LOC: HO.LAB 09:14
PROVIDERS: PCP Internal Medicine; Visit Provider Internal Medicine
DX: Z12.5 Encounter for screening for malignant neoplasm of prostate (principal); E11.65 Type 2 diabetes mellitus with hyperglycemia; E78.00 Pure hypercholesterolemia, unspecified
CPT/HCPCS: 36415; 80053; 80061; 82607; 82746; 83735; 84153; 84439; 84443; 85025

== ENCOUNTER 2024-02-28 10:33 | Outpatient (AMB) | payer BC, SELFPAY ==
[2024-02-28 10:36] VITALS: BP 148/70; PULSE 68; O2SAT 98; BMI 26.3
--- NOTE | 2024-02-28 10:36 | A.OFFPC_ITS ---
Vital Signs 02/28/24 10:36 Height 5 ft 9 in Weight 178 lb BMI 26.3 BP 148/70 H Blood Pressure Location Lt brachial Position Sitting Pulse 68 Pulse Source Pulse Oximeter Pulse Oximetry (%) 98 Oxygen Delivery Method Room Air Intake Visit Reasons: 6 month follow up Allergies No Known Allergies [No Known Allergies*] Allergy (Verified 02/28/24 10:37) Tobacco use date assessed: 02/28/24 Fall risk assessment: No Falls in past year Last assessed Fall Risk: 02/28/24 Dental Screening Dental Screen Date: 02/28/24 Did you have a dental visit in the last 12 months?: Yes Did you have a dental problem in the last 6 months where you did not have access to dental care?: No Was dental information given to patient?: Patient has dentist HPI 6 month follow up HPI Details 63-year-old male with a history of diabe scotty mellitus hypertension hypercholesterolemia last seen in July 2023. Patient's colonoscopy up to date September 2022. ER visit December 2023 diagnosis of otitis media eardrum and pill prescribed.. Patient was seen in October for a posterior neck cyst excision patient also has a bone density done due to a wedge compression fracture of a 2nd lumbar vertebra osteoporosis. ER note of severe back pain with numbness tingling of the legs loss of bowel bladder continence. BP good at home.- took coffee. PFSH Medical History Epidermal cyst of neck Colon cancer screening Localized swelling, mass and lump, neck Hemorrhoid Watery eyes Hemorrhoids Diverticular disease Irritable bowel syndrome Knee osteoarthritis Cholelithiasis Family history of hemochromatosis Vitamin D deficiency Abdominal pain Degenerative disc disease Hand fracture, right Closed fracture of distal clavicle Inguinal hernia Obesity (BMI 30-39.9) Hypercholesterolemia Hypertension Surgical History History of removal of cyst (~10/20/23) History of repair of hiatal hernia History of arthroplasty of right knee History of vasectomy History of arthroplasty of left knee History of appendectomy Family History Father Hypertension Myocardial infarct Mother Lung cancer Myocardial infarct Son Cancer Brother Bladder cancer Hypertension Hemochromatosis Myocardial infarct Social History Housing: House Alcohol intake: current Alcohol intake frequency: holidays/special occasions o nly Patient Tobacco Use Status: Never used Tobacco e-Cigarette/Vaping Use: Never Used Second Hand Smoke Exposure: No Current occupational status: employed Cognitive needs: No Hearing needs: No Vision needs: Yes Questionnaire PHQ-9 Over the last 2 weeks, how often have you been bothered by any of the following problems? 1. Little interest or pleasure in doing things: not at all 2. Feeling down, depressed, or hopeless: not at all 3. Trouble falling or staying asleep, or sleeping too much: not at all 4. Feeling tired or having little energy: not at all 5. Poor appetite or overeating: not at all 6. Feeling bad about yourself - or that you are a failure or have let yourself or your family down: not at all 7. Trouble concentrating on things, such as reading the newspaper or watching television: not at all 8. Moving or speaking so slowly that other people could have noticed. Or the o pposite - being so fidgety or restless that you have been moving around a lot more than usual: not at all 9. Thoughts that you would be better off or of hurting yourself in some way: not at all Total score: 0 Depression Screening Interpretation: Negative Depression Screening Done: Yes Source: Developed by Drs. Esteban Han, Brandi Brandon, Chano Bahena and colleagues, with an educational jong from [employer]. Thrive Questionnaire Date Thrive assessed: 02/28/24 I am a: Patient What is your living situation today?: I have a steady place to live Within the past 12 months, did the food you bought not last and you didn't have the money to get more?: Never true Within the past 12 months, did you worry whether your food would run out before you got money to buy more?: Never true Do you have trouble paying for medicines?: No Do you have trouble getting transportation to medical appointments?: No Do you have trouble paying your heating and electricity bill?: No Do you have trouble taking care of your child, family member or friend?: No Do you have trouble with day-to-day activities such as bathing, preparing meals, shopping, managing finances, etc.?: No Are you currently unemployed and looking for a job?: No Are you interested in more education?: No Currently or been in a relationship where the following occur: no concerns reported THRIVE Score: 0 AUDIT C Alcohol Use Questionnaire (AUDIT-C) 1. How often do you have a drink containing alcohol?: 2-4 times a month 2. How many drinks containing alcohol do you have on a typical day when you are drinking?: 1 or 2 3. How often do you have six or more drinks on one occasion?: Never Total Score: 2 Score Reviewed/Action Taken: No MARILYN-7 AMB Questionnaire MARILYN-7 Date MARILYN - 7 assessed: 02/28/24 Feeling nervous, anxious, or on edge: 0 = Not at all Not being able to stop or control worryin = Not at all Worrying too much about different things: 0 = Not at all Trouble relaxin = Not at all Being so restless that it is hard to sit still: 0 = Not at all Becoming easily annoyed or irritable: 0 = Not at all Feeling afraid as if something awful might happen: 0 = Not at all Total MARILYN-7 score (0-4 normal; 5-9 mild; 10-14 moderate; 15-21 severe): 0 Source: Developed by Drs. Esteban Han, Brandi Brandon, Chano Bahena and colleagues, with an educational jong from [employer]. Physical exam (Primary Care) Vital Signs: Last Vital Signs Pulse 68 02/28/24 10:36 BP 148/70 H 02/28/24 10:36 Pulse Ox 98 02/28/24 10:36 Oxygen Delivery Method Room Air 02/28/24 10:36 BMI result Body Mass Index 26.3 Tobacco/Smoking Status: Tobacco use Status Tobacco use date assessed 02/28/24 02/28/24 10:39 Patient Tobacco Use Status Never used Tobacco 02/28/24 10:39 e-Cigarette/Vaping Use Never Used 02/28/24 10:39 PHQ-9: PHQ-9 Score PHQ-9: Total score 0 02/28/24 10:52 Depression Screening Interpretation: Negative Thrive Assessment: Date of Thrive Assessment Date Thrive assessed 02/28/24 02/28/24 10:39 Currently or been in a relationship where the following occur: no concerns reported Const General: alert; No acute distress Eyes Conjunctivae: conjunctivae normal Resp Auscultation: clear to auscultation bilaterally Cardio Rate: regular rate Rhythm: regular rhythm GI Inspection: Yes normal to inspection Extrem General: Yes normal to inspection and No edema Results AMB Hemoglobin A1c AMB Hemoglobin A1c 6.0 % Last Edit by Christiana Mcclelland CMA on 02/28/24 10 :53 Results Reviewed Results Reviewed: Laboratory Last Values Hgb A1c (Clinic) 6.0 % (4.0-6.0) 02/28/24 10:52 Assessment and Plan Assessment & Plan (1) Osteoporosis: Comment: August 2023 Code(s): M81.0 - Age-related osteoporosis without current pathological fracture Plan: Concern about osteoporosis. testosterone requested (2) Compression fracture of L2 vertebra: Comment: 07/31/23 fall Code(s): S32.020A - Wedge compression fracture of second lumbar vertebra, initial encounter for closed fracture Plan: Noted fall but on bone density noted osteoporosis (3) Type 2 diabetes mellitus with hyperglycemia: Comment: Gabriel Ramirez Code(s): E11.65 - Type 2 diabetes mellitus with hyperglycemia Plan: Decrease the amount of carbohydrate intake, pasta, bread, rice and potatoes are all sugar and that is aside from all the sweet stuff, remember that fruits are good but they are Sweet also. Hemoglobin A1c goal of less than 6.5. Patient is diet controlled (4) Hypertension: Code(s): I10 - Essential (primary) hypertension Plan: Continue with blood pressure medication. Decrease salt intake and exercise lisinopril 30 mg once a day (5) Hypercholesterolemia: Code(s): E78.00 - Pure hypercholesterolemia, unspecified Plan: Avoid fried foods, chicken skin, eggs, butter margarine, pastries and meat. Be it pork or beef they have a lot of cholesterol LDL goal of less than 100 and triglyceride of less than 150. Orders: Orders Testosterone, Total Today M81.0 - Age-related osteoporosis without current pathological fracture AMB Hemoglobin A1c Today Z13.9 - Encounter for screening, unspecified Coding Level of Care Code Est Pt Level 4 (38109) Diagnoses Osteoporosis M81.0 Compression fracture of L2 vertebra S32.020A Type 2 diabetes mellitus with hyperglycemia E11.65 Hypertension I10 Hypercholesterolemia E78.00
== END 2024-02-28 11:14 | disposition home or self-care (01) ==
PROVIDERS: PCP Internal Medicine; Visit Provider Internal Medicine
DX: M81.0 Age-related osteoporosis without current pathological fracture (principal); S32.020A Wedge compression fracture of second lumbar vertebra, initial encounter for closed fracture; E11.65 Type 2 diabetes mellitus with hyperglycemia; I10 Essential (primary) hypertension; E78.00 Pure hypercholesterolemia, unspecified; Z13.9 Encounter for screening, unspecified
CPT/HCPCS: 83036; 99214

== ENCOUNTER 2024-02-28 11:20 | Outpatient (REF) | payer BC, SELFPAY ==
[2024-03-03 16:33] LABS: Testosterone, Total 349 ng/dL (250-1100)
== END 2024-02-28 11:21 | disposition home or self-care (01) ==
LOC: HO.LAB 11:20
PROVIDERS: PCP Internal Medicine; Visit Provider Internal Medicine
DX: M81.0 Age-related osteoporosis without current pathological fracture (principal)
CPT/HCPCS: 36415; 84403

== ENCOUNTER 2024-03-27 08:36 | Outpatient (AMB) | payer BC, SELFPAY ==
--- NOTE | 2024-03-27 08:37 | MHC.OFFWIV ---
Intake Vital Signs 03/27/24 08:42 Height 5 ft 9 in BP 138/72 Blood Pressure Location Rt brachial Position Sitting Pulse 67 Pulse Source Pulse Oximeter Temp 97.8 F Temp Source Oral Pulse Oximetry (%) 97 Oxygen Delivery Method Room Air Intake Visit Reasons: EP left ear infection Intake Note: pt is here for left ear infection Patient Tobacco Use Status: Never used Tobacco Allergies No Known Allergies [No Known Allergies*] Allergy (Verified 03/27/24 08:38) Do you need a note to return to daycare/school/sports/work: No HPI HPI Comments History of Present Illness Details presents to walkin today for sick visit reports left ear pain for last 2 weeks. denies URI symptoms Denies hearing loss, drainage from ear, ringing in the ear, dizziness, syncope. Denies sore throat, cough, fever, vomiting, diarrhea, headache. [facility] Medical History Epidermal cyst of neck Colon cancer screening Localized swelling, mass and lump, neck Hemorrhoid Watery eyes Hemorrhoids Diverticular disease Irritable bowel syndrome Knee osteoarthritis Cholelithiasis Family history of hemochromatosis Vitamin D deficiency Abdominal pain Degenerative disc disease Hand fracture, right Closed fracture of distal clavicle Inguinal hernia Obesity (BMI 30-39.9) Hypercholesterolemia Hypertension Surgical History History of removal of cyst (~10/20/23) History of repair of hiatal hernia History of arthroplasty of right knee History of vasectomy History of arthroplasty of left knee History of appendectomy Family History Father Hypertension Myocardial infarct Mother Lung cancer Myocardial infarct Son Cancer Brother Bladder cancer Hypertension Hemochromatosis Myocardial infarct Social History Housing: House Alcohol intake: current Alcohol intake frequency: holidays/special occasions only Patient Tobacco Use Status: Never used Tobacco e-Cigarette/Vaping Use: Never Used Second Hand Smoke Exposure: No Current occupational status: employed Cognitive needs: No Hearing needs: No Vision needs: Yes Review of Systems Const All systems reviewed & are unremarkable except as noted in HPI and below Physical Exam Vital Signs: Last Vital Signs Temp 97.8 F 03/27/24 08:42 Pulse 67 03/27/24 08:42 BP 138/72 03/27/24 08:42 Pulse Ox 97 03/27/24 08:42 Oxygen Delivery Method Room Air 03/27/24 08:42 General: awake, alert, oriented. Answers questions appropriately. Fully engaged in examination. Skin: warm, dry, intact HEENT: Normocephalic. Hearing intact. Left TM erythematous, cloudy. Right TM normal to visual inspection. Cardiac: External chest normal in appearance. Respiratory: No cough, audible wheezing or stridor. Abdomen: without gross distension. MS: No obvious swelling or deformities. Neurological: Oriented to person, place, time and situation. Thought process intact. Psychiatric: Appropriate mood and affect. Good judgment and insight. Assessment & Plan Assessment & Plan (1) Otitis media, left: Code(s): H66.92 - Otitis media, unspecified, left ear Plan Doxycycline 100mg po BID for 7 days Ciprodex drops as directed Drink plenty of fluids, avoid getting anything in the ear, tylenol/motrin as needed. Patient encouraged to follow up with pcp, recent Right Otitis Media, now with left Otitis Media. Recommend discussing referral to ENT if symptoms persist or recur. All questions and concerns were addressed during the visit, patient agrees with the plan. Follow up with pcp or in walkin for any new or worsening symptoms. Medications: New ciprofloxacin-dexamethasone 0.3-0.1 % 4 drps otic (ears) BID 7 days 7.5 mL 0RF doxycycline hyclate 100 mg PO BID 7 days 14 caps 0RF Coding Level of Care Code Est Pt Level 3 (52918) Diagnoses Otitis media, left H66.92
[2024-03-27 08:42] VITALS: BP 138/72; PULSE 67; TEMP 36.6; O2SAT 97
== END 2024-03-27 09:58 | disposition home or self-care (01) ==
PROVIDERS: PCP Internal Medicine; Visit Provider Registered Nurse Emergency
DX: H66.92 Otitis media, unspecified, left ear (principal)
CPT/HCPCS: 99213

== ENCOUNTER 2024-07-10 15:11 | Outpatient (AMB) | payer BC, SELFPAY ==
[2024-07-10 15:17] VITALS: BP 140/68; PULSE 78; O2SAT 98; BMI 27.0
--- NOTE | 2024-07-10 15:17 | MHC.PC.OV ---
Vital Signs 07/10/24 15:17 Height 5 ft 7.5 in Weight 175 lb BMI 27.0 BP 140/68 H Blood Pressure Location Lt brachial Position Sitting Pulse 78 Pulse Source Pulse Oximeter Pulse Oximetry (%) 98 Oxygen Delivery Method Room Air Intake Visit Reasons: osteoporosis, DM Allergies No Known Allergies [No Known Allergies*] Allergy (Verified 07/10/24 15:18) Medication List - Last Reconciled 07/10/24 by Chucky Martinez MD ascorbate calcium (vitamin C) 1 g PO DAILY cholecalciferol (vitamin D3) 25 mcg PO DAILY hydrocortisone 2.5% topical ketoconazole 2% 1 appl topical DAILY lisinopril 30 mg PO DAILY metronidazole 0.75% 1 appl topical BID Tobacco use date assessed: 02/28/24 Fall risk assessment: No Falls in past year Last assessed Fall Risk: 07/10/24 Dental Screening Dental Screen Date: 02/28/24 HPI osteoporosis, DM HPI Details 64-year-old overweight male with a history of L2 vertebral compression fracture controlled diabetes mellitus hypertension hypercholesterolemia last seen in February 2024. Patient did have a bone density 08/2023 . Patient has been seen by the car electronics installer Dr. Dunham 07/04/2024 with no retinopathy. Patient recently went [facility] the [facility] in March also having left ear infection treated with doxycycline and Ciprodex. Patient is a little stressed out as he is driving to [place] has breast cancer. [facility] Medical History (Updated 07/10/24 @ 15:32 by Chucky Martinez MD) Epidermal cyst of neck Otitis media, right Otitis media, left Colon cancer screening Localized swelling, mass and lump, neck Hemorrhoid Watery eyes Hemorrhoids Diverticular disease Irritable bowel syndrome Knee osteoarthritis Cholelithiasis Family history of hemochromatosis Vitamin D deficiency Abdominal pain Degenerative disc disease Hand fracture, right Closed fracture of distal clavicle Inguinal hernia Obesity (BMI 30-39.9) Hypercholesterolemia Hypertension Surgical History History of removal of cyst (~10/20/23) History of repair of hiatal hernia History of arthroplasty of right knee History of vasectomy History of arthroplasty of left knee History of appendectomy Family History Father Hypertension Myocardial infarct Mother Lung cancer Myocardial infarct Son Cancer Brother Bladder cancer Hypertension Hemochromatosis Myocardial infarct Social History Housing: House Alcohol intake: current Alcohol intake frequency: holidays/special occasions only Patient Tobacco Use Status: Never used Tobacco Tobacco use type: Cigarette e-Cigarette/Vaping Use: Never Used Second Hand Smoke Exposure: No Current occupational status: employed Cognitive needs: No Hearing needs: No Vision needs: Yes Questionnaire PHQ-9 Over the last 2 weeks, how often have you been bothered by any of the following problems? 1. Little interest or pleasure in doing things: not at all 2. Feeling down, depressed, or hopeless: not at all 3. Trouble falling or staying asleep, or sleeping too much: not at all 4. Feeling tired or having little energy: not at all 5. Poor appetite or overeating: not at all 6. Feeling bad about yourself - or that you are a failure or have let yourself or your family down: not at all 7. Trouble concentrating on things, such as reading the newspaper or watching television: not at all 8. Moving or speaking so slowly that other people could have noticed. Or the opposite - being so fidgety or restless that you have been moving around a lot more than usual: not at all 9. Thoughts that you would be better off or of hurting yourself in some way: not at all Total score: 0 Depression Screening Interpretation: Negative Depression Screening Done: Yes Source: Developed by Drs. Esteban Han, Brandi Brandon, Chano Bahena and colleagues, with an educational jong from [employer]. Thrive Questionnaire Date Thrive assessed: 02/28/24 AUDIT C Alcohol Use Questionnaire (AUDIT-C) 1. How often do you have a drink containing alcohol?: 2-4 times a month 2. How many drinks containing alcohol do you have on a typical day when you are drinking?: 1 or 2 3. How often do you have six or more drinks on one occasion?: Never Total Score: 2 Score Reviewed/Action Taken: No MARILYN-7 AMB Questionnaire MARILYN-7 Date MARILYN - 7 assessed: 02/28/24 Source: Developed by Drs. Esteban Han, Chano Oliveira and colleagues, with an educational jong from [employer]. Physical exam (Primary Care) Vital Signs: Last Vital Signs Pulse 78 07/10/24 15:17 BP 140/68 H 07/10/24 15:17 Pulse Ox 98 07/10/24 15:17 Oxygen Delivery Method Room Air 07/10/24 15:17 BMI result Body Mass Index 27.0 Tobacco/Smoking Status: Tobacco use Status Tobacco use date assessed 02/28/24 07/10/24 15:18 Patient Tobacco Use Status Never used Tobacco 07/10/24 15:18 Tobacco use type Cigarette 07/10/24 15:18 e-Cigarette/Vaping Use Never Used 07/10/24 15:18 PHQ-9: PHQ-9 Score PHQ-9: Total score 0 07/10/24 15:18 Depression Screening Interpretation: Negative Thrive Assessment: Date of Thrive Assessment Date Thrive assessed 02/28/24 07/10/24 15:18 Const General: alert; No acute distress Eyes Conjunctivae: conjunctivae normal Resp Auscultation: clear to auscultation bilaterally Cardio Rate: regular rate Rhythm: regular rhythm GI Inspection: Yes normal to inspection Extrem General: Yes normal to inspection and No edema Results AMB Hemoglobin A1c AMB Hemoglobin A1c 6.0 % Last Edit by Christiana Mcclelland CMA on 07/10/24 15:32 Assessment and Plan Assessment & Plan (1) Osteoporosis: Comment: August 2023 Code(s): M81.0 - Age-related osteoporosis without current pathological fracture Plan: 09/03/2023 last bone density and has a history of compression fracture. Patient is strongly advised to follow-up with endocrinology (2) Compression fracture of L2 vertebra: Comment: 07/31/23 fall Code(s): S32.020A - Wedge compression fracture of second lumbar vertebra, initial encounter for closed fracture Plan: Continue Keep active. (3) Overweight (BMI 25.0-29.9): Code(s): E66.3 - Overweight Plan: Diet and exercise (4) Type 2 diabetes mellitus with hyperglycemia: Comment: Gabriel Ramirez Code(s): E11.65 - Type 2 diabetes mellitus with hyperglycemia Plan: Decrease the amount of carbohydrate intake, pasta, bread, rice and potatoes are all sugar and that is aside from all the sweet stuff, remember that fruits are good but they are Sweet also. Hemoglobin A1c goal of less than 6.5 on diet control (5) Hypertension: Code(s): I10 - Essential (primary) hypertension Plan: Continue with blood pressure medication. Decrease salt intake and exercise takes lisinopril 30 mg once a day. Patient is advised to monitor blood pressure. And if getting 110 or below systolic blood pressure advised to follow-up and will need to decrease blood pressure medication. (6) Hypercholesterolemia: Code(s): E78.00 - Pure hypercholesterolemia, unspecified Plan: Avoid fried foods, chicken skin, eggs, butter margarine, pastries and meat. Be it pork or beef they have a lot of cholesterol LDL goal of less than 100 and triglyceride of less than 150 02/2024 Orders: Orders AMB Hemoglobin A1c Today Z13.9 - Encounter for screening, unspecified Referrals Endocrinology Referral M81.0 - Age-related osteoporosis without current pathological fracture Medications: Refilled lisinopril 30 mg PO DAILY 90 tabs 3RF I10 - Essential (primary) hypertension Discontinued ciprofloxacin-dexamethasone 0.3-0.1 % Discontinued Reason: Patient Completed Course 4 drps otic (ears) BID 7 days 7.5 mL 0RF doxycycline hyclate Discontinued Reason: Doctor's Order 100 mg PO BID 7 days 14 caps 0RF Coding Level of Care Code Est Pt Level 4 (83284) Diagnoses Osteoporosis M81.0 Compression fracture of L2 vertebra S32.020A Overweight (BMI 25.0-29.9) E66.3 Type 2 diabetes mellitus with hyperglycemia E11.65 Hypertension I10 Hypercholesterolemia E78.00
== END 2024-07-10 15:50 | disposition home or self-care (01) ==
PROVIDERS: PCP Internal Medicine; Visit Provider Internal Medicine
DX: M81.0 Age-related osteoporosis without current pathological fracture (principal); S32.020A Wedge compression fracture of second lumbar vertebra, initial encounter for closed fracture; E66.3 Overweight; E11.65 Type 2 diabetes mellitus with hyperglycemia; I10 Essential (primary) hypertension; E78.00 Pure hypercholesterolemia, unspecified; Z13.9 Encounter for screening, unspecified
CPT/HCPCS: 83036; 99214

== ENCOUNTER 2024-07-19 08:17 | Outpatient (AMB) | payer BC, SELFPAY ==
--- NOTE | 2024-07-19 08:30 | A.OFFVIS_ITS ---
Vital Signs 07/19/24 08:34 Height 5 ft 7.72 in Weight 178 lb 2.136 oz BMI 27.3 BP 132/78 Blood Pressure Location Rt brachial Position Sitting Pulse 60 Pulse Source Pulse Oximeter Intake Visit Reasons: Osteoporosis Intake Note: New patient present today for Osteoporosis. Quality Assurance Monitor Chassis Required: No Accompanied by: Self / Same As Patient Allergies No Known Allergies [No Known Allergies*] Allergy (Verified 07/19/24 08:34) Medication List - Last Reconciled 07/19/24 by Esteban Zuniga MD ascorbate calcium (vitamin C) 1 g PO DAILY cholecalciferol (vitamin D3) 25 mcg PO DAILY hydrocortisone 2.5% topical ketoconazole 2% 1 appl topical DAILY lisinopril 30 mg PO DAILY metronidazole 0.75% 1 appl topical BID HPI Comments Details: 64 YO male is seen in consultation at the request of PCP for Osteoporosis. First diagnosed in 2 yrs ago . Not Received treatment in the past history of pathologic fracture 1 1/2 yrs ago fell backwards after hard fall no ONJ. Has several servings of dietary calcium per day in the form of yogurt , milk . Not Takes Calcium supplement Takes 1000 IU of Vitamin D daily. Denies ever using PPI, anticoagulant, antiepileptic or glucocorticoid medication. Not Does weight bearing exercise Fracture history: compression fx of L2 vertebrae Height loss: 1 inch Denies history of Kidney stones: Denies family history of Osteoporosis or hip fracture. UTD on dental cleanings and sees dentist every 6 months. No planned upcoming dental work or extractions. DXA dated 08/31/2023 : FINDINGS: LEFT FEMUR, NECK: BMD 0.713 g/cm2, Z-score -1.9, T-score -2.7, osteoporosis. LEFT FEMUR, TOTAL: BMD 0.841 g/cm2, Z-score -1.4, T-score -1.8, osteopenia. AP SPINE L1-L4: BMD 0.958 g/cm2, Z-score -2.0, T-score -2.2, osteopenia. IDENTIFIED RISK FACTORS: History of fracture (adult). HISTORY OF FRACTURE: Spine, wrist. MEDICATIONS: Calcium supplements or multivitamin, vitamin D. MM/XR DEXA axial skeleton IMPRESSION: 1. DIAGNOSIS: Severe osteoporosis based on the lowest T-score value of -2.7 in the femoral neck and history of fracture applying World Health Organization criteria. Labs: [facility] Medical History (Updated 07/10/24 @ 15:32 by Chucky Martinez MD) Epidermal cyst of neck Otitis media, right Otitis media, left Colon cancer screening Localized swelling, mass and lump, neck Hemorrhoid Watery eyes Hemorrhoids Diverticular disease Irritable bowel syndrome Knee osteoarthritis Cholelithiasis Family history of hemochromatosis Vitamin D deficiency Abdominal pain Degenerative disc disease Hand fracture, right Closed fracture of distal clavicle Inguinal hernia Obesity (BMI 30-39.9) Hypercholesterolemia Hypertension Surgical History History of removal of cyst (~10/20/23) History of repair of hiatal hernia History of arthroplasty of right knee History of vasectomy History of arthroplasty of left knee History of appendectomy Family History Father Hypertension Myocardial infarct Mother Lung cancer Myocardial infarct Son Cancer Brother Bladder cancer Hypertension Hemochromatosis Myocardial infarct Social History Housing: House Alcohol intake: current Alcohol intake frequency: holidays/special occasions only Patient Tobacco Use Status: Never used Tobacco Tobacco use type: Cigarette e-Cigarette/Vaping Use: Never Used Second Hand Smoke Exposure: No Current occupational status: employed Cognitive needs: No Hearing needs: No Vision needs: Yes Physical Exam There are no Cushingoid features. Absence of blue sclera. Absence of kyphosis. Thyroid gland is of nl size and weighs 15 gms. There are no thyroid nodules pa lpated. Lungs CTA. Heart S1 S2 Reg R/R Abdominal exam benign. Muscle strength 5/5 . Examination of spine reveals absence of tenderness on palpation Assessment & Plan Assessment & Plan (1) Osteoporosis: Comment: August 2023 Code(s): M81.0 - Age-related osteoporosis without current pathological fracture Category: Medical Plan: This 64-year-old white male with a history of osteoporosis and L2 compression fracture. Rule out secondary causes. Plan is to check a phosphorus, SPEP, urine immunofixation, 24 hour urine for calcium and creatinine, 25 hydroxy vitamin-D. Will ensure 1200 mg of calcium and continue vitamin-D 3 supplementation. Assuming above secondary workup is negative, would strongly consider using anabolic therapy like Forteo or Tymlos proceeded by an anti resorptive therapy considering the patient has a history of compression fracture of the spine as a very high risk for subsequent fracture Orders: Orders Phosphorus Today M81.0 - Age-related osteoporosis without current pathological fracture Protein Electrophoresis, Serum Today M81.0 - Age-related osteoporosis without current pathological fracture Immunofixation, Random Urine Today M81.0 - Age-related osteoporosis without current pathological fracture Calcium, 24 Hr Ur Today M81.0 - Age-related osteoporosis without current pathological fracture Vitamin D 25-OH Total Today M81.0 - Age-related osteoporosis without current pathological fracture Creatinine, 24 Hr Group Today M81.0 - Age-related osteoporosis without current pathological fracture Coding Level of Care Code New Pt Level 4 (80463) Diagnoses Osteoporosis M81.0
[2024-07-19 08:34] VITALS: BP 132/78; PULSE 60; BMI 27.3
== END 2024-07-19 09:28 | disposition home or self-care (01) ==
PROVIDERS: PCP Internal Medicine; Visit Provider Internal Medicine Endocrinology, Diabetes & Metabolism
DX: M81.0 Age-related osteoporosis without current pathological fracture (principal)
CPT/HCPCS: 99204

== ENCOUNTER → 2024-07-19 08:17 | Outpatient (BNVA) | payer BC, SELFPAY | PROVIDERS: PCP Internal Medicine; Visit Provider Internal Medicine Endocrinology, Diabetes & Metabolism ==

== ENCOUNTER 2024-08-09 12:35 | Outpatient (REF) | payer BC, SELFPAY ==
[2024-08-10 13:40] LABS: Creatinine, mg/dL 45.75
[2024-08-10 13:50] LABS: Creatinine, 24Hr Urine 1.3 G/Day (1.0-2.0); Total Volume 24 Hour Urine 2825 mL
[2024-08-11 17:58] LABS: Calcium, 24 Hr Urine 243 mg/24 h; Calcium/Creatinine Ratio 187 mg/g creat (30-210)
== END 2024-08-09 12:36 | disposition home or self-care (01) ==
LOC: HO.LNP 12:35
PROVIDERS: Visit Provider Internal Medicine Endocrinology, Diabetes & Metabolism
DX: M81.0 Age-related osteoporosis without current pathological fracture (principal)
CPT/HCPCS: 82340; 82570; 86335

== ENCOUNTER 2024-10-06 07:48 | Outpatient (AMB) | payer BC, SELFPAY ==
[2024-10-06 08:00] VITALS: BP 148/96; PULSE 49; O2SAT 96; BMI 27.4
--- NOTE | 2024-10-06 08:00 | MHC.PC.OV ---
Vital Signs 10/06/24 08:00 Height 5 ft 7.72 in Weight 179 lb BMI 27.4 BP 148/96 H Blood Pressure Location Lt brachial Position Sitting Pulse 49 L Pulse Source Pulse Oximeter Pulse Oximetry (%) 96 Oxygen Delivery Method Room Air Intake Visit Reasons: 3 Month F/U Allergies No Known Allergies [No Known Allergies*] Allergy (Verified 10/06/24 08:05) Tobacco use date assessed: 02/28/24 Fall risk assessment: No Falls in past year Last assessed Fall Risk: 10/06/24 Dental Screening Dental Screen Date: 02/28/24 HPI 3 Month F/U HPI Details 64-year-old overweight male with a history of L2 vertebral compression fracture controlled diabetes mellitus hypertension hypercholesterolemia last seen in 06/2024 coming in for follow up. In review of the notes patient was seen by [facility] endocrinology 07/19/2024 for osteoporosis plan for labs and considering anabolic therapy. Patient states he has had a poor diet and decreased exercise in the last few months due to social obligations and vacations. He has not been taking his blood pressure at home. [facility] Medical History (Updated 07/10/24 @ 15:32 by Chucky Martinez MD) Epidermal cyst of neck Otitis media, right Otitis media, left Colon cancer screening Localized swelling, mass and lump, neck Hemorrhoid Watery eyes Hemorrhoids Diverticular disease Irritable bowel syndrome Knee osteoarthritis Cholelithiasis Family history of hemochromatosis Vitamin D deficiency Abdominal pain Degenerative disc disease Hand fracture, right Closed fracture of distal clavicle Inguinal hernia Obesity (BMI 30-39.9) Hypercholesterolemia Hypertension Surgical History History of removal of cyst (~10/20/23) History of repair of hiatal hernia History of arthroplasty of right knee History of vasectomy History of arthroplasty of left knee History of appendectomy Family History Father Hypertension Myocardial infarct Mother Lung cancer Myocardial infarct Son Cancer Brother Bladder cancer Hypertension Hemochromatosis Myocardial infarct Social History Housing: House Alcohol intake: current Alcohol intake frequency: holidays/special occasions only Patient Tobacco Use Status: Never used Tobacco Tobacco use type: Cigarette e-Cigarette/Vaping Use: Never Used Second Hand Smoke Exposure: No Current occupational status: employed Cognitive needs: No Hearing needs: No Vision needs: Yes Questionnaire Thrive Questionnaire Date Thrive assessed: 02/28/24 AUDIT C Alcohol Use Questionnaire (AUDIT-C) 2. How many drinks containing alcohol do you have on a typical day when you are drinking?: 1 or 2 3. How often do you have six or more drinks on one occasion?: Monthly Total Score: 2 MARILYN-7 AMB Questionnaire MARILYN-7 Date MARILYN - 7 assessed: 02/28/24 Source: Developed by Drs. Esteban Han, Brandi Brandon, Chano Bahena and colleagues, with an educational jong from [email or web address]. Review of Systems Const Denies body aches, Denies chills, Denies fever(s), Denies headache(s) and Denies poor appetite Eyes Reports no additional complaints ENT Denies dysphagia, Denies dizziness, Denies headache(s) and Denies odynophagia Card Denies chest pain, Denies syncope, Denies edema, Denies irregular heart rhythm, Denies lightheadedness and Denies dyspnea Resp Denies cough and Denies dyspnea GI Denies abdominal pain, Denies constipation, Denies dysphagia, Denies diarrhea, Denies nausea, Denies odynophagia and Denies vomiting Reports no additional complaints Musc Reports no additional complaints and Denies abnormal gait Skin/Breast Reports system reviewed and no additional complaints, except as documented Neuro Denies abnormal gait, Denies dizziness, Denies syncope and Denies headache(s) Psych Reports no additional complaints Physical exam (Primary Care) Vital Signs: Last Vital Signs Pulse 49 L 10/06/24 08:00 BP 148/96 H 10/06/24 08:00 Pulse Ox 96 10/06/24 08:00 Oxygen Delivery Method Room Air 10/06/24 08:00 BMI result Body Mass Index 27.4 Tobacco/Smoking Status: Tobacco use Status Tobacco use date assessed 02/28/24 10/06/24 08:04 Patient Tobacco Use Status Never used Tobacco 10/06/24 08:04 Tobacco use type Cigarette 10/06/24 08:04 e-Cigarette/Vaping Use Never Used 10/06/24 08:04 Thrive Assessment: Date of Thrive Assessment Date Thrive assessed 02/28/24 10/06/24 08:04 Const General: cooperative, healthy appearing, comfortable and no acute distress Orientation/consciousness: patient oriented x3 HENMT Head: Yes normocephalic Ears: hearing grossly normal bilaterally General nose exam: Normal external nose present Eyes General: appearance normal, both eyes and all related structures Conjunctivae: conjunctivae normal Neck Neck: Yes full ROM and Yes no lymphadenopathy Resp Effort & Inspection: normal respiratory effort Auscultation: clear to auscultation bilaterally, no crackles, no rales, no rhonchi and no wheezes Cardio Rate: regular rate Rhythm: regular rhythm Skin General skin exam: no rashes or lesions noted Neuro General: patient oriented x3 Gait exam (Neuro): Normal gait present Extrem General: Yes normal to inspection, Yes full ROM and No edema Psych Affect: normal affect Attitude: cooperative Insight: Good insight present (Psych) Judgement: Good judgement present (Psych) Results AMB Hemoglobin A1c AMB Hemoglobin A1c 6.4 % Last Edit by DANISHA Lloyd on 10/06/24 08:11 Coding Level of Care Code Est Pt Level 4 (37533) Diagnoses Osteoporosis M81.0 Hypertension I10 Hypercholesterolemia E78.00 Type 2 diabetes mellitus with hyperglycemia E11.65 Overweight (BMI 25.0-29.9) E66.3 Assessment & Plan Assessment & Plan (1) Osteoporosis: Comment: August 2023 Code(s): M81.0 - Age-related osteoporosis without current pathological fracture Category: Medical Plan: Currently following with endocrinology considering biologics. (2) Hypertension: Code(s): I10 - Essential (primary) hypertension Category: Medical Plan: Continue on current blood pressure medication. Avoid salt intake and encourage healthy diet and regular exercise. Blood pressure elevated today advised patient to take blood pressures at home and if they are persistently over 140/90 to reach out to the office to increase the lisinopril to 40 mg. Otherwise follow up at next appointment. (3) Hypercholesterolemia: Code(s): E78.00 - Pure hypercholesterolemia, unspecified Category: Medical Plan: Avoid foods that are high in cholesterol such as red meat, fried foods, eggs and baked goods. Triglyceride goal of less than 150 and LDL goal of less than 100. (4) Type 2 diabetes mellitus with hyperglycemia: Comment: Gabriel Ramirez Code(s): E11.65 - Type 2 diabetes mellitus with hyperglycemia Category: Medical Plan: Decrease the amount of carbohydrates such as pasta, bread, rice, and potatoes and limit the amount of sweets. Although fruits are generally healthy they should be eaten in moderation as they are still high in sugar. Hemoglobin A1c goal of less than 7%. A1c elevated at 6.4% patient declining medication at this time and would like to continue with conservative measurement. (5) Overweight (BMI 25.0-29.9): Code(s): E66.3 - Overweight Category: Medical Plan: Healthy diet and regular exercise is encouraged. Plan This note was constructed using voice recognition software. While every effort has been made to ensure accuracy and interventional cardiologist, still areas may have been included sometimes these areas may affect the content or meeting of the given symptoms. Total time spent caring for the patient today was 20 minutes. This includes time spent before the visit reviewing the chart, time spent during the visit, and time spent after the visit and documentation. Orders: Orders AMB Hemoglobin A1c Today E11.65 - Type 2 diabetes mellitus with hyperglycemia Lipid Panel 3 Months E78.00 - Pure hypercholesterolemia, unspecified Hemoglobin A1c 3 Months E11.65 - Type 2 diabetes mellitus with hyperglycemia
== END 2024-10-06 08:30 | disposition home or self-care (01) ==
PROVIDERS: PCP Internal Medicine
DX: M81.0 Age-related osteoporosis without current pathological fracture (principal); I10 Essential (primary) hypertension; E78.00 Pure hypercholesterolemia, unspecified; E11.65 Type 2 diabetes mellitus with hyperglycemia; E66.3 Overweight

== ENCOUNTER → 2024-10-06 07:48 | Outpatient (BNVA) | payer BC, SELFPAY | PROVIDERS: PCP Internal Medicine | DX: M81.0 Age-related osteoporosis without current pathological fracture (principal); I10 Essential (primary) hypertension; E78.00 Pure hypercholesterolemia, unspecified; E11.65 Type 2 diabetes mellitus with hyperglycemia; E66.3 Overweight; Z68.27 Body mass index [BMI] 27.0-27.9, adult | CPT/HCPCS: 83036 ==

== ENCOUNTER 2024-10-18 09:00 | Outpatient (REF) | payer BC, SELFPAY ==
[2024-10-18 11:30] LABS: Phosphorus 3.3 mg/dL (2.7-4.5)
[2024-10-18 11:37] LABS: Vitamin D 25-OH Total 32.1 ng/mL (>30)
[2024-10-20 11:44] LABS: Prot Elec - Albumin 4.6 g/dL (3.8-4.8); Prot Elec - Alpha1 0.2 g/dL (0.2-0.3); Prot Elec - Alpha2 0.6 g/dL (0.5-0.9); Prot Elec - Beta 1 0.4 g/dL (0.4-0.6); Prot Elec - Beta 2 0.4 g/dL (0.2-0.5); Prot Elec - Gamma 0.9 g/dL (0.8-1.7)
== END 2024-10-18 09:01 | disposition home or self-care (01) ==
LOC: HO.LAB 09:00
PROVIDERS: PCP Internal Medicine; Visit Provider Internal Medicine Endocrinology, Diabetes & Metabolism
DX: M81.0 Age-related osteoporosis without current pathological fracture (principal)
CPT/HCPCS: 36415; 82306; 84100; 84165

== ENCOUNTER 2024-10-25 08:18 | Outpatient (AMB) | payer BC, SELFPAY ==
--- NOTE | 2024-10-25 08:19 | MHC.OFFVIS ---
Vital Signs 10/25/24 08:22 Height 5 ft 7.05 in Weight 181 lb 7.047 oz BMI 28.4 BP 146/82 H Blood Pressure Location Rt brachial Position Sitting Pulse 59 Pulse Source Pulse Oximeter Intake Visit Reasons: f/u osteoporosis Intake Note: Patient present today for Osteoporosis follow up. Senior Interactive Producer Required: No Accompanied by: Self / Same As Patient Allergies No Known Allergies [No Known Allergies*] Allergy (Verified 10/25/24 08:25) HPI Comments Details: 64 YO male is seen in consultation at the request of PCP for Osteoporosis. First diagnosed in 2 yrs ago . Not Received treatment in the past history of pathologic fracture 1 1/2 yrs ago fell backwards after hard fall no ONJ. Has several servings of dietary calcium per day in the form of yogurt , milk . Not Takes Calcium supplement Takes 1000 IU of Vitamin D daily. Denies ever using PPI, anticoagulant, antiepileptic or glucocorticoid medication. Not Does weight bearing exercise Fracture history: compression fx of L2 vertebrae Height loss: 1 inch Denies history of Kidney stones: Denies family history of Osteoporosis or hip fracture. UTD on dental cleanings and sees dentist every 6 months. No planned upcoming dental work or extractions. DXA dated 08/31/2023 : FINDINGS: LEFT FEMUR, NECK: BMD 0.713 g/cm2, Z-score -1.9, T-score -2.7, osteoporosis. LEFT FEMUR, TOTAL: BMD 0.841 g/cm2, Z-score -1.4, T-score -1.8, osteopenia. AP SPINE L1-L4: BMD 0.958 g/cm2, Z-score -2.0, T-score -2.2, osteopenia. IDENTIFIED RISK FACTORS: History of fracture (adult). HISTORY OF FRACTURE: Spine, wrist. MEDICATIONS: Calcium supplements or multivitamin, vitamin D. MM/XR DEXA axial skeleton IMPRESSION: 1. DIAGNOSIS: Severe osteoporosis based on the lowest T-score value of -2.7 in the femoral neck and history of fracture applying World Health Organization criteria. Labs: Secondary workup was negative [facility] Medical History (Updated 07/10/24 @ 15:32 by Chucky Martinez MD) Epidermal cyst of neck Otitis media, right Otitis media, left Colon cancer screening Localized swelling, mass and lump, neck Hemorrhoid Watery eyes Hemorrhoids Diverticular disease Irritable bowel syndrome Knee osteoarthritis Cholelithiasis Family history of hemochromatosis Vitamin D deficiency Abdominal pain Degenerative disc disease Hand fracture, right Closed fracture of distal clavicle Inguinal hernia Obesity (BMI 30-39.9) Hypercholesterolemia Hypertension Surgical History History of removal of cyst (~10/20/23) History of repair of hiatal hernia History of arthroplasty of right knee History of vasectomy History of arthroplasty of left knee History of appendectomy Family History Father Hypertension Myocardial infarct Mother Lung cancer Myocardial infarct Son Cancer Brother Bladder cancer Hypertension Hemochromatosis Myocardial infarct Social History Housing: House Alcohol intake: current Alcohol intake frequency: holidays/special occasions only Patient Tobacco Use Status: Never used Tobacco Tobacco use type: Cigarette e-Cigarette/Vaping Use: Never Used Second Hand Smoke Exposure: No Current occupational status: employed Cognitive needs: No Hearing needs: No Vision needs: Yes Physical Exam Vital Signs: Last Vital Signs Pulse 59 10/25/24 08:22 BP 146/82 H 10/25/24 08:22 BMI result Body Mass Index 28.4 Assessment & Plan Assessment & Plan (1) Osteoporosis: Comment: August 2023 Code(s): M81.0 - Age-related osteoporosis without current pathological fracture Category: Medical Plan: This 64-year-old white male with a history of osteoporosis and L2 compression fracture. Secondary causes of a ruled out Plan is to discuss using anabolic therapy like Forteo or Tymlos proceeded by an anti resorptive therapy considering the patient has a history of compression fracture of the spine as a very high risk for subsequent fracture Coding Level of Care Code Est Pt Level 3 (50132) Diagnoses Osteoporosis M81.0
[2024-10-25 08:22] VITALS: BP 146/82; PULSE 59; BMI 28.4
== END 2024-10-25 09:04 | disposition home or self-care (01) ==
PROVIDERS: PCP Internal Medicine; Visit Provider Internal Medicine Endocrinology, Diabetes & Metabolism
DX: M81.0 Age-related osteoporosis without current pathological fracture (principal)
CPT/HCPCS: 99213

== ENCOUNTER → 2024-10-25 08:18 | Outpatient (BNVA) | payer BC, SELFPAY | PROVIDERS: PCP Internal Medicine; Visit Provider Internal Medicine Endocrinology, Diabetes & Metabolism ==

== ENCOUNTER → 2024-12-15 08:06 | Outpatient (BNVA) | payer OTHER, SELFPAY | PROVIDERS: PCP Internal Medicine | DX: Z76.89 Persons encountering health services in other specified circumstances (principal) ==

== ENCOUNTER 2025-01-26 08:18 | Outpatient (REF) | payer OTHER, SELFPAY ==
[2025-01-26 09:37] LABS: MANUAL DIFF FLAG NO
--- OUTSIDE RECORDS SUMMARY | 2025-01-26 09:58 | XMS_ITS | Clinical Summary ---
Author Organization [facility] Facility Address [address] [place] [id number] Care Team Providers Care Field Support Engineer Name Role Phone Chucky Martinez MD Primary Care Provider [phone] Medications lisinopril (PRINIVIL,ZESTRI L) 30 MG tablet [...] age to complete this topic Care Teams Field Support Engineer Relationship Specialty Start Date End Date Chucky Martinez MD [facility] [address] [place] PCP - General 11/25/20
[2025-01-26 10:28] LABS: Basophils Percent Auto 0.8 % (0-2); Eosinophils Absolute Auto 0.1 X10*3/uL (0.0-0.4); Eosinophils Percent Auto 2.5 % (0-4); Hematocrit 39.4 % (42.0-52.0); Hemoglobin 13.7 g/dl (14.0-18.0); Imm Gran Abs Auto 0.01 X10*3/uL (0.00-0.03); Imm Gran Pct Auto 0.3 % (0.0-0.4); Lymphocytes Absolute Auto 0.9 X10*3/uL (1.2-4.9); Lymphocytes Percent Auto 25.1 % (20-40); Mean Corpuscular HGB Conc 34.8 g/dl (31.0-36.0); Mean Corpuscular Hemoglobin 31.6 pg (27.0-33.0); Mean Platelet Volume 11.1 fL (9.4-12.4); Monocytes Absolute Auto 0.4 X10*3/uL (0.1-1.2); Monocytes Percent Auto 10.7 % (2-11); Neutrophils Absolute Auto 2.1 x10*3/uL (2.0-8.3); Neutrophils Percent Auto 60.6 % (45-73); Platelet Count 176 X10*3/uL (160-400); Red Blood Count 4.33 X10*6/uL (4.60-5.80); Red Cell Distribution Width 14.1 % (11.0-16.0); White Blood Count 3.5 X10*3/uL (4.8-10.8)
[2025-01-26 10:48] LABS: Estimated Average Glucose 117 mg/dL; Hemoglobin A1c % 5.7 % (<6.0); Total Hemoglobin (HGBA1C) 3565.5098 umol/L
[2025-01-26 11:18] LABS: Alanine Aminotransferase 42 U/L (0-40); Albumin Level 4.3 g/dL (3.5-5.0); Alkaline Phosphatase 74 U/L (39-117); Anion Gap 12 (12-20); Aspartate Amino Transferase 44 U/L (5-37); Bilirubin Total 0.7 mg/dL (0.0-1.0); Blood Urea Nitrogen 11 mg/dL (9-16); Calcium 9.1 mg/dL (8.4-10.2); Carbon Dioxide 28 mmol/L (22-29); Chloride 103 mmol/L (96-108); Cholesterol 139 mg/dL (<200); Estimated Glomerular Filt Rate > 60; Glucose Random 114 mg/dL (60-115); HDL Cholesterol 58 mg/dL (>40); LDL Cholesterol Calculated 75 mg/dL (<100); Potassium 4.1 mmol/L (3.3-5.1); Sodium 139 mmol/L (135-145); Thyroid Stimulating Hormone 0.73 uIU/mL (0.32-4.0); Total Protein 7.5 g/dL (6.5-8.0); Triglycerides 33 mg/dL (<150)
[2025-01-26 11:22] LABS: Cholesterol 140 mg/dL (<200); Free T4 (Free Thyroxine) 1.07 ng/dL (0.71-1.85); HDL Cholesterol 64 mg/dL (>40); LDL Cholesterol Calculated 70 mg/dL (<100); Triglycerides 34 mg/dL (<150)
[2025-01-26 11:28] LABS: Creatinine Urine 130.83 mg/dL; Microalbum/Creatinine Ratio Ur 18.3 ug/mg cr (<30)
[2025-01-26 11:42] LABS: Folate 17.8 ng/mL (> or = 4.0); Prostate Specific Antigen Scr 0.75 ng/mL (<0.05-4.0); Vitamin B12 1498 pg/mL (200-900)
== END 2025-01-26 08:19 | disposition home or self-care (01) ==
LOC: HO.LAB 08:18
PROVIDERS: PCP Internal Medicine; Visit Provider Internal Medicine
DX: E78.00 Pure hypercholesterolemia, unspecified (principal); E11.65 Type 2 diabetes mellitus with hyperglycemia; Z12.5 Encounter for screening for malignant neoplasm of prostate
CPT/HCPCS: 36415; 80053; 80061; 82043; 82570; 82607; 82746; 83036; 84153; 84439; 84443; 85025

== ENCOUNTER 2025-01-26 08:18 | Outpatient (AMB) | payer OTHER, SELFPAY ==
--- NOTE | 2025-01-26 08:21 | A.OFFPC_ITS ---
Vital Signs 01/26/25 08:23 Height 5 ft 7 in Weight 169 lb 8 oz BMI 26.5 BP 120/72 Blood Pressure Location Lt brachial Position Sitting Pulse 52 Pulse Source Pulse Oximeter Temp 97.1 F Temp Source Temporal Artery Scan Pulse Oximetry (%) 98 Oxygen Delivery Method Room Air Intake Visit Reasons: f/u DM and HLD Intake Note: Patient is here to follow up on HLD, DM. Forestry Supervisor Required: No Shed Boss: Not Required per policy Accompanied by: Self / Same As Patient Allergies No Known Allergies [No Known Allergies*] Allergy (Verified 01/26/25 08:22) Tobacco use date assessed: 01/26/25 Fall risk assessment: No Falls in past year Last assessed Fall Risk: 01/26/25 Dental Screening Dental Screen Date: 01/26/25 Did you have a dental visit in the last 12 months?: Yes Did you have a dental problem in the last 6 months where you did not have access to dental care?: No Was dental information given to patient?: Patient has dentist [facility] Medical History (Updated 01/26/25 @ 08:54 by Chucky Martinez MD) Epidermal cyst of neck Otitis media, right Otitis media, left Colon cancer screening Localized swelling, mass and lump, neck Hemorrhoid Watery eyes Hemorrhoids Diverticular disease Irritable bowel syndrome Knee osteoarthritis Cholelithiasis Family history of hemochromatosis Vitamin D deficiency Abdominal pain Degenerative disc disease Hand fracture, right Closed fracture of distal clavicle Inguinal hernia Obesity (BMI 30-39.9) Hypercholesterolemia Hypertension Surgical History History of removal of cyst (~10/20/23) History of repair of hiatal hernia History of arthroplasty of right knee History of vasectomy History of arthroplasty of left knee History of appendectomy Family History Father Hypertension Myocardial infarct Mother Lung cancer Myocardial infarct Son Cancer Brother Bladder cancer Hypertension Hemochromatosis Myocardial infarct Social History Housing: House Alcohol intake: current Alcohol intake frequency: holidays/special occasions only Patient Tobacco Use Status: Never used Tobacco Tobacco use type: Cigarette e-Cigarette/Vaping Use: Never Used Second Hand Smoke Exposure: No service: No Current occupational status: employed Cognitive needs: No Hearing needs: No Vision needs: Yes (Glasses) Questionnaire PHQ-9 Over the last 2 weeks, how often have you been bothered by any of the following problems? 1. Little interest or pleasure in doing things: not at all 2. Feeling down, depressed, or hopeless: not at all 3. Trouble falling or staying asleep, or sleeping too much: not at all 4. Feeling tired or having little energy: not at all 5. Poor appetite or overeating: not at all 6. Feeling bad about yourself - or that you are a failure or have let yourself or your family down: not at all 7. Trouble concentrating on things, such as reading the newspaper or watching television: not at all 8. Moving or speaking so slowly that other people could have noticed. Or the opposite - being so fidgety or restless that you have been moving around a lot more than usual: not at all 9. Thoughts that you would be better off or of hurting yourself in some way: not at all Total score: 0 Depression Screening Interpretation: Negative Depression Screening Done: Yes Source: Developed by Drs. Esteban Han, Brandi Brandon, Chano Bahena and colleagues, with an educational jong from [employer]. Thrive Questionnaire Date Thrive assessed: 01/26/25 I am a: Patient What is your living situation today?: I have a steady place to live Within the past 12 months, did the food you bought not last and you didn't have the money to get more?: Never true Within the past 12 months, did you worry whether your food would run out before you got money to buy more?: Never true Do you have trouble paying for medicines?: No Do you have trouble getting transportation to medical appointments?: No Do you have trouble paying your heating and electricity bill?: No Do you have trouble taking care of your child, family member or friend?: No Do you have trouble with day-to-day activities such as bathing, preparing meals, shopping, managing finances, etc.?: No Are you currently unemployed and looking for a job?: No Are you interested in more education?: No Please select the resources that you would like help with: None Currently or been in a relationship where the following occur: No concerns reported THRIVE Score: 0 AUDIT C Alcohol Use Questionnaire (AUDIT-C) 2. How many drinks containing alcohol do you have on a typical day when you are drinking?: 1 or 2 3. How often do you have six or more drinks on one occasion?: Never Total Score: 0 MARILYN-7 AMB Questionnaire MARILYN-7 Date MARILYN - 7 assessed: 01/26/25 Feeling nervous, anxious, or on edge: 0 = Not at all Not being able to stop or control worryin = Not at all Worrying too much about different things: 0 = Not at all Trouble relaxin = Not at all Being so restless that it is hard to sit still: 0 = Not at all Becoming easily annoyed or irritable: 0 = Not at all Feeling afraid as if something awful might happen: 0 = Not at all Total MARIYLN-7 score (0-4 normal; 5-9 mild; 10-14 moderate; 15-21 severe): 0 Source: Developed by Drs. Esteban Han, Brandi Brandon, Chano Bahena and colleagues, with an educational jong from [employer]. Physical exam (Primary Care) Vital Signs: Last Vital Signs Temp 97.1 F 01/26/25 08:23 Pulse 52 01/26/25 08:23 BP 120/72 01/26/25 08:23 Pulse Ox 98 01/26/25 08:23 Oxygen Delivery Method Room Air 01/26/25 08:23 BMI result Body Mass Index 26.5 Tobacco/Smoking Status: Tobacco use Status Tobacco use date assessed 01/26/25 01/26/25 08:29 Patient Tobacco Use Status Never used Tobacco 01/26/25 08:29 Tobacco use type Cigarette 01/26/25 08:29 e-Cigarette/Vaping Use Never Used 01/26/25 08:29 PHQ-9: PHQ-9 Score PHQ-9: Total score 0 01/26/25 08:43 Depression Screening Interpretation: Negative Thrive Assessment: Date of Thrive Assessment Date Thrive assessed 01/26/25 01/26/25 08:29 Currently or been in a relationship where the following occur: No concerns reported Const General: alert; No acute distress Eyes Conjunctivae: conjunctivae normal Resp Auscultation: clear to auscultation bilaterally Cardio Rate: regular rate Rhythm: regular rhythm GI Inspection: Yes normal to inspection Extrem General: Yes normal to inspection and No edema Results AMB Hemoglobin A1c AMB Hemoglobin A1c 5.9 % Last Edit by DANISHA Lewis on 01/26/25 08:45 Results Reviewed Results Reviewed: Laboratory Last Values Hgb A1c (Clinic) 5.9 % (4.0-6.0) 01/26/25 08:21 Coding Level of Care Code Est Pt Level 4 (92092) Complex EM visit Add On G2211 Diagnoses Osteoporosis M81.0 Type 2 diabetes mellitus with hyperglycemia E11.65 Hypertension I10 Hypercholesterolemia E78.00 Shoulder pain, right M25.511 Assessment & Plan Assessment & Plan (1) Osteoporosis: Comment: August 2023 Code(s): M81.0 - Age-related osteoporosis without current pathological fracture Category: Medical Plan: Patient has been seeing endocrinology and has been started on Tymlos (2) Type 2 diabetes mellitus with hyperglycemia: Comment: Gabriel Ramirez Code(s): E11.65 - Type 2 diabetes mellitus with hyperglycemia Category: Medical Plan: Decrease the amount of carbohydrate intake, pasta, bread, rice and potatoes are all sugar and that is aside from all the sweet stuff, remember that fruits are good but they are Sweet also. Hemoglobin A1c goal of less than 7.0 patient is diet controlled and noted 12 lb weight loss (3) Hypertension: Code(s): I10 - Essential (primary) hypertension Category: Medical Plan: Continue with blood pressure medication. Decrease salt intake and exercise on lisinopril 30 mg once a day (4) Hypercholesterolemia: Code(s): E78.00 - Pure hypercholesterolemia, unspecified Category: Medical Plan: Avoid fried foods, chicken skin, eggs, butter margarine, pastries and meat. Be it pork or beef they have a lot of cholesterol LDL goal of less than 100 and triglyceride of less than 150. Last blood work was done in February. Will request for new blood work patient is diet controlled (5) Shoulder pain, right: Code(s): M25.511 - Pain in right shoulder Category: Medical Plan History of Present Illness The patient is a 64-year-old male presenting with a follow-up visit for ongoing shoulder pain and management of osteoporosis. He has a notable history of type 2 diabetes mellitus, hypertension, hypercholesterolemia, and osteoporosis, along with a previous L2 vertebral compression fracture. His shoulder pain has persisted for four months, exacerbated by twisting movements, and was initially managed with ice. He also maintains a well-controlled diabetes and hypertension regimen. The patient has been taking Tymlos for osteoporosis management per endocrinology recommendations, with the last bone density study performed in August 2023. Health Maintenance - Current Hemoglobin A1c: 5.9 (diet-controlled) - Bone density study in August 2023 - Last colonoscopy performed September 2022 - LDL level last checked: 82 mg/dL; monitoring for LDL goal <100 mg/dL - Regular blood pressure monitoring, last recorded at 120/72 mmHg Social History - Retired, previously employed for over 25 years. 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 - Reports purposeful weight loss for health management; no dessert intake. - Family involvement; assists daughter with home improvements. - Drinks coffee with milk, no added sweeteners. - Insurance covers 100% of osteoporosis treatment. Review of Systems - Musculoskeletal: Reports shoulder pain, particularly with movement. - Gastrointestinal: Reports occasional stomach ache; occasional nausea. - General: Denies recent weight gain; notes a 12-pound weight loss. Physical Exam - Cardiac/Vascular- Blood pressure noted at 120/72 mmHg. Results - Labs: Hemoglobin A1c 5.9 in February 2024; LDL 82 mg/dL. Plan We will proceed with an x-ray of the shoulder to assess for any anatomical concerns and consider alternative imaging such as an MRI if needed, with an emphasis on physical therapy to support recovery. The patient will continue Tymlos for osteoporosis, and monitoring of blood pressure and cholesterol levels will be conducted to maintain overall health stability. The patient is encouraged to maintain his dietary regimens and active lifestyle choices to manage his diabetes and general health status. Follow-up care and evaluations are arranged in accordance with ongoing treatment needs. Patient was informed and verbally consented to the use of an ambient scribe for clinic note documentation during this visit. Discussion Notes I explained to the patient that the shoulder x-ray is necessary to rule out stru ctural issues, and we will explore an MRI to examine soft tissue problems if the pain persists. We discussed the use of heat therapy as a management option and the role of physical therapy in alleviating symptoms and preventing further injury. I informed him about completing blood work for cholesterol and acknowledged his significant progress in managing diabetes, recognizing the benefits of his current lifestyle choices. I reviewed the importance of continuing Tymlos for his osteoporosis and endorsed follow-up appointments for ongoing monitoring. Patient Instructions - Schedule and complete an x-ray for the shoulder. - Apply heat rather than ice to the shoulder to manage discomfort. - Continue taking Tymlos as directed for osteoporosis management. - Maintain current dietary and lifestyle strategies to manage diabetes and hypertension. - Plan for routine laboratory testing for cholesterol levels. - Consider attending physical therapy to assist in managing shoulder pain. - Contact the office with any new symptoms or concerns. Orders: Orders AMB Hemoglobin A1c Today E11.65 - Type 2 diabetes mellitus with hyperglycemia Complete Blood Count Auto Diff Today E11.65 - Type 2 diabetes mellitus with hyperglycemia Comprehensive Met. Panel Today E11.65 - Type 2 diabetes mellitus with hyperglycemia Microalbumin, Random (w Creat) Today E11.65 - Type 2 diabetes mellitus with hyperglycemia Free T4 (Free Thyroxine) Today E11.65 - Type 2 diabetes mellitus with hyperglycemia Lipid Panel Today E11.65 - Type 2 diabetes mellitus with hyperglycemia, E78.00 - Pure hypercholesterolemia, unspecified XR shoulder RT min 2V Today M25.511 - Pain in right shoulder Creatinine Urine Today E11.65 - Type 2 diabetes mellitus with hyperglycemia Thyroid Stimulating Hormone Today E11.65 - Type 2 diabetes mellitus with hyperglycemia Vitamin B12 and Folate Today E11.65 - Type 2 diabetes mellitus with hyperglycemia Prostate Specific Antigen Scr Today E11.65 - Type 2 diabetes mellitus with hyperglycemia PT Evaluation and Treatment Today M25.511 - Pain in right shoulder
[2025-01-26 08:23] VITALS: BP 120/72; PULSE 52; TEMP 36.2; O2SAT 98; BMI 26.5
--- OUTSIDE RECORDS SUMMARY | 2025-01-26 08:29 | XMS_ITS | Clinical Summary ---
Author Organization [facility] Facility Address [address] [place] [id number] Care Team Providers Care Veterinary Practitioner Name Role Phone Chucky Martinez MD Primary Care Provider [phone] Medications lisinopril (PRINIVIL,ZESTRI L) 30 MG tablet TAKE 1 TABLET BY MOUTH EVERY DAY 90 tablet 4 07/17/2021 Active lisinopril (PRINIVIL,ZESTRI L) 30 MG tablet TAKE 1 TABLET BY MOUTH EVERY DAY 90 tablet 3 06/22/2023 Active Family History Medical History Relation Comments Heart disease Father Hypertension Father Hypertension Mother Diabetes Sibling 1 Hypertension Sibling 2 Relation Status Comments Father Mother Sibling 1 Sibling 2 Social History Tobacco Use Types Packs/Day Years Used Date Smoking Tobacco: Never Alcohol Use Standard Drinks/Week Comments Yes 0 (1 standard drink = 0.6 oz pure alcohol) Alcoholic Drinks/day: Occasional social drink Sex and Gender Information Value Date Recorded Sex Assigned at Not on file Legal Sex Male 4:47 PM EST Gender Identity Not on file Sexual Orientation Not on file Last Filed Vital Signs Vital Sign Reading Time Taken Comments Blood Pressure 120/80 12/18/2020 12:01 PM EST Pulse 63 12/18/2020 12:01 PM EST Temperature - - Respiratory Rate - - Oxygen Saturation - - Inhaled Oxygen Concentration - - Weight 93.4 kg (206 lb) 12/18/2020 12:01 PM EST Height 174 cm (5' 8.5 ) 12/18/2020 12:01 PM EST Body Mass Index 30.87 12/18/2020 12:01 PM EST Plan of Treatment Health Maintenance Due Date Last Done Comments Colorectal Cancer Screening: Annual FOBT 2008 Colorectal Cancer Screening: Colonoscopy 2008 Colorectal Cancer Screening: Sigmoidoscopy 2008 Pneumococcal Vaccine: 65+ Ye ars (1 of 1 - PCV) 2024 Influenza Vaccine (#1) 2024 Hepatitis B Vaccine Aged Out No longe r eligible based on patient's age to complete this topic Pneumococcal Vaccine: Pediat rics (0 to 5 Years) and At-Risk Patients (6 to 64 Years) Aged Out No longer eligible b ased on patient's age to complete this topic Care Teams Veterinary Practitioner Relationship Specialty Start Date End Date Chucky Martinez MD [facility] [address] [place] PCP - General 11/25/20
== END 2025-01-26 09:04 | disposition home or self-care (01) ==
LOC: HO.HMCH 08:19
PROVIDERS: PCP Internal Medicine; Visit Provider Internal Medicine
DX: M81.0 Age-related osteoporosis without current pathological fracture (principal); E11.65 Type 2 diabetes mellitus with hyperglycemia; I10 Essential (primary) hypertension; E78.00 Pure hypercholesterolemia, unspecified; M25.511 Pain in right shoulder

== ENCOUNTER 2025-02-22 08:27 | Outpatient (AMB) | payer OTHER, SELFPAY ==
--- NOTE | 2025-02-22 08:30 | A.OFFVIS_ITS ---
Vital Signs 02/22/25 08:33 Height 5 ft 7.48 in Weight 173 lb 15.115 oz BMI 26.9 BP 130/82 Blood Pressure Location Rt brachial Position Sitting Pulse 53 Pulse Source Pulse Oximeter Pulse Oximetry (%) 98 Oxygen Delivery Method Room Air Intake Visit Reasons: Osteoporosis Intake Note: Patient present today for Osteoporosis follow up. Research Quality Assurance Analyst Required: No Accompanied by: Self / Same As Patient Allergies No Known Allergies [No Known Allergies*] Allergy (Verified 02/22/25 08:33) Medication List - Last Reconciled 02/22/25 by Esteban Zuniga MD abaloparatide (Tymlos) 80 mcg (0.04 mL) subcut DAILY ascorbate calcium (vitamin C) 1 g PO DAILY cholecalciferol (vitamin D3) 25 mcg PO DAILY hydrocortisone 2.5% topical ketoconazole 2% 1 appl topical DAILY lisinopril 30 mg PO DAILY metronidazole 0.75% 1 appl topical BID pen needle, diabetic (Comfort EZ Pen [place]) As directed HPI Comments Details: 64 YO male is seen in consultation at the request of PCP for Osteoporosis. First diagnosed in 2 yrs ago . Not Received treatment in the past history of pathologic fracture 1 1/2 yrs ago fell backwards after hard fall no ONJ. Has several servings of dietary calcium per day in the form of yogurt , milk . Not Takes Calcium supplement Takes 1000 IU of Vitamin D daily. Denies ever using PPI, anticoagulant, antiepileptic or glucocorticoid medication. Not Does weight bearing exercise Fracture history: compression fx of L2 vertebrae Height loss: 1 inch Denies history of Kidney stones: Denies family history of Osteoporosis or hip fracture. UTD on dental cleanings and sees dentist every 6 months. No planned upcoming dental work or extractions. DXA dated 08/31/2023 : FINDINGS: LEFT FEMUR, NECK: BMD 0.713 g/cm2, Z-score -1.9, T-score -2.7, osteoporosis. LEFT FEMUR, TOTAL: BMD 0.841 g/cm2, Z-score -1.4, T-score -1.8, osteopenia. AP SPINE L1-L4: BMD 0.958 g/cm2, Z-score -2.0, T-score -2.2, osteopenia. IDENTIFIED RISK FACTORS: History of fracture (adult). HISTORY OF FRACTURE: Spine, wrist. MEDICATIONS: Calcium supplements or multivitamin, vitamin D. MM/XR DEXA axial skeleton IMPRESSION: 1. DIAGNOSIS: Severe osteoporosis based on the lowest T-score value of -2.7 in the femoral neck and history of fracture applying World Health Organization criteria. Labs: Secondary workup was negative. On Tymlos 80 mcg q.d. since 12/2024. Tolerating Tymlos nicely. No fracture since last visit The patient is a 64-year-old male presenting for a follow-up related to osteoporosis and evaluation of his vitamin D levels. He began treatment with Tymlos (abaloparatide) on December and has been adhering to the regimen with no issues apart from one missed dose. The patient continues taking calcium and vitamin D supplements to aid in his bone health, despite expressing concerns about vitamin D insufficiency earlier. His most recent lab tests from October 2024 indicate normal vitamin D levels, and he reports no new fractures. The patient had a past injury in October that led to interrupting his weight- bearing exercises, but he has since started physical therapy. A repeat bone density scan is due in August 2025 to monitor the status of his bone health. [facility], [facility] Medical History (Updated 01/26/25 @ 08:54 by Chucky Martinez MD) Epidermal cyst of neck Otitis media, right Otitis media, left Colon cancer screening Localized swelling, mass and lump, neck Hemorrhoid Watery eyes Hemorrhoids Diverticular disease Irritable bowel syndrome Knee osteoarthritis Cholelithiasis Family history of hemochromatosis Vitamin D deficiency Abdominal pain Degenerative disc disease Hand fracture, right Closed fracture of distal clavicle Inguinal hernia Obesity (BMI 30-39.9) Hypercholesterolemia Hypertension Surgical History History of removal of cyst (~10/20/23) History of repair of hiatal hernia History of arthroplasty of right knee History of vasectomy History of arthroplasty of left knee History of appendectomy Family History Father Hypertension Myocardial infarct Mother Lung cancer Myocardial infarct Son Cancer Brother Bladder cancer Hypertension Hemochromatosis Myocardial infarct Social History Housing: House Alcohol intake: current Alcohol intake frequency: holidays/special occasions only Patient Tobacco Use Status: Never used Tobacco Tobacco use type: Cigarette e-Cigarette/Vaping Use: Never Used Second Hand Smoke Exposure: No service: No Current occupational status: employed Cognitive needs: No Hearing needs: No Vision needs: Yes (Glasses) Physical Exam Vital Signs: Last Vital Signs Pulse 53 02/22/25 08:33 BP 130/82 02/22/25 08:33 Pulse Ox 98 02/22/25 08:33 Oxygen Delivery Method Room Air 02/22/25 08:33 BMI result Body Mass Index 26.9 Assessment & Plan Assessment & Plan (1) Osteoporosis: Comment: August 2023 Code(s): M81.0 - Age-related osteoporosis without current pathological fracture Category: Medical Plan: This 64-year-old white male with a history of osteoporosis and L2 compression fracture. Secondary causes of a ruled out. Currently on Tymlos for 2 months Plan is to continue Tymlos for full 18 month course proceeded by an anti resorptive therapy considering the patient has a history of compression fracture of the spine as a very high risk for subsequent fracture 1. Osteoporosis The patient adheres to Tymlos (abaloparatide) treatment without adverse effects or new fractures. Continue Tymlos for 18 months with a follow-up bone density scan in August 2025. Options like alendronate or Reclast will be considered post Tymlos treatment based on scan results. I discussed with the patient the importance of ongoing management of osteoporosis with Tymlos and the need for regular monitoring through bone density scans. Various therapy options post Tymlos treatment, like oral alendronate or IV Reclast, were presented as future possibilities, depending on the bone density status at that time. Vitamin D supplementation should continue as his levels were found to be adequate in the last check-up. An exercise regimen, while cautious due to a previous injury, was deemed beneficial. I emphasized scheduling another appointment in seven months post the bone density test to assess the patient's progress further. I advised continued use of his current insurance plan as it effectively covers his medication costs. - Continue taking Tymlos as directed, aiming for 18 months total. - Maintain current calcium and vitamin D supplementation. - Schedule bone density scan for August 2025 as planned. - Participate in physical therapy and follow exercise recommendations. - Contact any time for concerns or symptoms before the next follow-up in seven months post-bone density scan. - Keep using the current health insurance plan for its benefits. - Communication regarding any new symptoms or health changes is encouraged. The patient had an opportunity to ask questions regarding treatment plan. The patient expressed understanding and agreement with the above treatment plan. Patient was informed and verbally consented to the use of an ambient scribe for clinic note documentation during this visit. Orders: Orders XR DEXA axial skeleton 6 Months M81.0 - Age-related osteoporosis without current pathological fracture Coding Level of Care Code Est Pt Level 3 (36046) Diagnoses Osteoporosis M81.0
[2025-02-22 08:33] VITALS: BP 130/82; PULSE 53; O2SAT 98; BMI 26.9
--- OUTSIDE RECORDS SUMMARY | 2025-02-22 08:38 | XMS_ITS | Clinical Summary ---
Author Organization [facility] Facility Address [address] [place] [address] Care Team Providers Care Agriculture Professor Name Role Phone Chucky Martinez MD Primary Care Provider [phone] Medications lisinopril (PRINIVIL,ZESTRI L) 30 MG tablet [...] Colorectal Cancer Screening: Sigmoidoscopy 2008 Pneumococcal Vaccine: 50+ Ye ars (1 of 1 - PCV) 2024 Influenza Vaccine (Season Ended) 2025 Hepatitis B Vaccine Aged Out No longe r eligible based on patient's age to complete this topic Pneumococcal Vaccine: Peds ( 0 to 5 Years) and At-Risk Patients (6 to 49 Years) Aged Out No longer eligible b ased on patient's age to complete this topic Care Teams Agriculture Professor Relationship Specialty Start Date End Date Chucky Martinez MD [facility] [address] [place], [place] PCP - General 11/25/20
== END 2025-02-22 08:57 | disposition home or self-care (01) ==
LOC: HO.ENCR 08:27
PROVIDERS: PCP Internal Medicine; Visit Provider Internal Medicine Endocrinology, Diabetes & Metabolism
DX: M81.0 Age-related osteoporosis without current pathological fracture (principal)
CPT/HCPCS: 99213

== ENCOUNTER → 2025-02-22 08:27 | Outpatient (BNVA) | payer OTHER, SELFPAY | PROVIDERS: PCP Internal Medicine; Visit Provider Internal Medicine Endocrinology, Diabetes & Metabolism ==

== ENCOUNTER 2025-04-13 07:00 | Outpatient (RCR) | payer OTHER, SELFPAY ==
--- NOTE | 2025-02-26 14:49 | MHC.PT.EP ---
[facility] [place] Office [place] Office [place] Office [address] Deedee Blanca [address] [phone] F: [phone] F: [phone] F: [phone] F: [phone] Physical Therapy Plan of Care Date of Evaluation: 02/26/25 Date of Surgery: Diagnosis: This is a 64 yo male presenting to skilled PT with a script for pain in R shoulder. Assessment: This is a 64 yo male presenting to skilled PT with a script for pain in R shoulder. Patient reporting that at the end of the last year he was finishing siding on a house when a ladder hit his shoulder (he does endorse some shoulder pain before that). He has had ongoing shoulder pain since then that has gotten a bit worse. Pain is located at anterior, lateral GHJ and radiates to the elbow. He denies neck pain. Pain increases with laying on the R side, adducting, pulling, reaching or lifting up with weight. Pain is described as sore and constant. He is interested in an MRI. He has been using heat and ice. Assessment reveals pain that ranges from up to a 6/10 at the worst. Patient demos decreased R shoulder and cervical ROM, strength of B shoulder's and scapular stabilizers (with R being worse than the L), TTP at ACJ, UT and impaired posture with forward head and rounded shoulders. He demos + impingement symptoms, + scapular winging with special tests. Based on functional limitations, impaired QOL and pain tolerance patient is a good candidate for skilled PT 2x/wk for 4wks (1x/wk for copay). Frequency and Duration: The patient will be seen 2x/wk for 4wks Short Term Goals: (In 2 weeks) Demo I with HEP Improve shoulder AROM by at least 10 degs Demo proper scapular recruitment with appropriate shoulder strengthening exercises Lead Quality Control Technician Goals: (in 4 wks) Improve shoulder nonpainful AROM to almost near equal B Demo at least 1 grade improvement in MMT for shoulder Improve SPADI by at least 10 points Improve overall functional QOL by at least 50% Treatment Plan: Modalities to reduce pain, spasms and effusion. Manual therapy to restore motion and function. Therapeutic exercise to improve strength and flexibility. Neuromuscular re-education for posture and balance. Therapeutic activities to return to functional activities of daily living. Electronically signed by: Jovana Charles PT Please sign and return to therapist. Thank you for your referral.
--- NOTE | 2025-05-14 08:55 | MHC.PT.DC ---
[facility] [place] Office [place] Office [place] Office [address] Deedee Blanca 140 [facility] [phone] F: [phone] F: [phone] F: [phone] F: [phone] Physical Therapy Discharge Report Diagnosis: This is a 64 yo male presenting to skilled PT with a script for pain in R shoulder. Date of Surgery: Date of Evaluation: 02/26/25 Date of Discharge: 05/14/25 Treatments to Date: 6 Cancellations to Date: 0 No Shows to Date: 0 Discharge Status: Achieved Goals Improved Function Independent with HEP Physician Discontinued Tx Discharge Summary: 04/13: Patient has come to 6 sessions of PT. He has improved in all aspects of ROM, strength, function and pain. He is I in his HEP and has met his PT and personal goals. At this time skilled PT is no longer indicated. I did educate him that he is very active and if he wants to talk with his MD about imaging for a baseline measurement that this may be a good idea otherwise DC to [facility]. Electronically signed by: Jovana Charles PT Please sign and return to therapist. Thank you for your referral.
== END 2025-05-14 08:55 | disposition home or self-care (01) ==
LOC: HO.PTCHIC 07:00
PROVIDERS: PCP Internal Medicine; Visit Provider Internal Medicine
DX: M25.511 Pain in right shoulder (principal)
CPT/HCPCS: 97110; 97140; 97161; 97162

== ENCOUNTER 2025-06-28 08:17 | Outpatient (AMB) | payer OTHER, SELFPAY ==
--- NOTE | 2025-06-28 08:28 | A.OFFPC_ITS ---
Vital Signs 06/28/25 08:29 Height 5 ft 7 in Weight 172 lb 8 oz BMI 27.0 BP 110/70 Blood Pressure Location Lt brachial Position Sitting Pulse 60 Pulse Source Pulse Oximeter Temp 97.3 F Temp Source Temporal Artery Scan Pulse Oximetry (%) 99 Oxygen Delivery Method Room Air Intake Visit Reasons: DM Intake Note: Patient is here to follow up on DM. Tenon Machine Operator Required: No Repairer Pump: Not Required per policy Accompanied by: Self / Same As Patient Allergies No Known Allergies (No Known Allergies*) Allergy (Verified 06/28/25 08:28) Tobacco use date assessed: 06/28/25 Fall risk assessment: No Falls in past year Last assessed Fall Risk: 06/28/25 Dental Screening Dental Screen Date: 01/26/25 [facility] Medical History (Updated 06/28/25 @ 08:54 by Chucky Martinez MD) Epidermal cyst of neck Otitis media, right Otitis media, left Colon cancer screening Localized swelling, mass and lump, neck Hemorrhoid Watery eyes Hemorrhoids Diverticular disease Irritable bowel syndrome Knee osteoarthritis Cholelithiasis Family history of hemochromatosis Vitamin D deficiency Abdominal pain Degenerative disc disease Hand fracture, right Closed fracture of distal clavicle Inguinal hernia Obesity (BMI 30-39.9) Hypercholesterolemia Hypertension Surgical History History of removal of cyst (~10/20/23) History of repair of hiatal hernia History of arthroplasty of right knee History of vasectomy History of arthroplasty of left knee History of appendectomy Family History Father Hypertension Myocardial infarct Mother Lung cancer Myocardial infarct Son Cancer Brother Bladder cancer Hypertension Hemochromatosis Myocardial infarct Social History Housing: House Alcohol intake: current Alcohol intake frequency: holidays/special occasions only Patient Tobacco Use Status: Never used Tobacco Tobacco use type: Cigarette e-Cigarette/Vaping Use: Never Used Second Hand Smoke Exposure: No service: No Current occupational status: employed Cognitive needs: No Hearing needs: No Vision needs: Yes (Glasses) Questionnaire PHQ-9 Over the last 2 weeks, how often have you been bothered by any of the following problems? 1. Little interest or pleasure in doing things: not at all 2. Feeling down, depressed, or hopeless: not at all 3. Trouble falling or staying asleep, or sleeping too much: not at all 4. Feeling tired or having little energy: not at all 5. Poor appetite or overeating: not at all 6. Feeling bad about yourself - or that you are a failure or have let yourself or your family down: not at all 7. Trouble concentrating on things, such as reading the newspaper or watching television: not at all 8. Moving or speaking so slowly that other people could have noticed. Or the opposite - being so fidgety or restless that you have been moving around a lot more than usual: not at all 9. Thoughts that you would be better off or of hurting yourself in some way: not at all Total score: 0 Depression Screening Interpretation: Negative Depression Screening Done: Yes Source: Developed by Drs. Esteban Han, Brandi Brandon, Chano Bahena and colleagues, with an educational jong from [employer]. Thrive Questionnaire Date Thrive assessed: 06/22/25 I am a: Patient What is your living situation today?: I have a steady place to live Within the past 12 months, did the food you bought not last and you didn't have the money to get more?: Never true Within the past 12 months, did you worry whether your food would run out before you got money to buy more?: I choose not to answer this question Do you have trouble paying for medicines?: No Do you have trouble getting transportation to medical appointments?: No Do you have trouble paying your heating and electricity bill?: No Do you have trouble taking care of your child, family member or friend?: No Do you have trouble with day-to-day activities such as bathing, preparing meals, shopping, managing finances, etc.?: No Are you currently unemployed and looking for a job?: I choose not to answer this question Are you interested in more education?: No Please select the resources that you would like help with: None Currently or been in a relationship where the following occur: No concerns reported THRIVE Score: 0 AUDIT C Alcohol Use Questionnaire (AUDIT-C) 1. How often do you have a drink containing alcohol?: Monthly or less Total Score: 1 MARILYN-7 AMB Questionnaire MARILYN-7 Date MARILYN - 7 assessed: 01/26/25 Feeling nervous, anxious, or on edge: 0 = Not at all Not being able to stop or control worryin = Not at all Worrying too much about different things: 0 = Not at all Trouble relaxin = Not at all Being so restless that it is hard to sit still: 0 = Not at all Becoming easily annoyed or irritable: 0 = Not at all Feeling afraid as if something awful might happen: 0 = Not at all Total MARILYN-7 score (0-4 normal; 5-9 mild; 10-14 moderate; 15-21 severe): 0 Source: Developed by Drs. Esteban Han, Brandi Brandon, Chano Bahena and colleagues, with an educational jong from [employer]. Physical exam (Primary Care) Vital Signs: Last Vital Signs Temp 97.3 F 06/28/25 08:29 Pulse 60 06/28/25 08:29 BP 110/70 06/28/25 08:29 Pulse Ox 99 06/28/25 08:29 Oxygen Delivery Method Room Air 06/28/25 08:29 BMI result Body Mass Index 27.0 Tobacco/Smoking Status: Tobacco use Status Tobacco use date assessed 06/28/25 06/28/25 08:35 Patient Tobacco Use Status Never used Tobacco 06/28/25 08:35 Tobacco use type Cigarette 06/28/25 08:35 e-Cigarette/Vaping Use Never Used 06/28/25 08:35 PHQ-9: PHQ-9 Score PHQ-9: Total score 0 06/28/25 08:42 Depression Screening Interpretation: Negative Thrive Assessment: Date of Thrive Assessment Date Thrive assessed 06/22/25 06/28/25 08:35 Currently or been in a relationship where the following occur: No concerns reported Const General: alert; No acute distress Eyes Conjunctivae: conjunctivae normal Resp Auscultation: clear to auscultation bilaterally Cardio Rate: regular rate Rhythm: regular rhythm GI Inspection: Yes normal to inspection Extrem General: Yes normal to inspection and No edema Results AMB Hemoglobin A1c AMB Hemoglobin A1c 5.9 % Last Edit by DANISHA Lewis on 06/28/25 08:40 Results Reviewed Results Reviewed: Laboratory Last Values Hgb A1c (Clinic) 5.9 % (4.0-6.0) 06/28/25 08:27 Coding Level of Care Code Est Pt Level 4 (76080) Complex EM visit Add On G2211 Diagnoses Type 2 diabetes mellitus with hyperglycemia E11.65 Hypercholesterolemia E78.00 Hypertension I10 Osteoporosis M81.0 Overweight (BMI 25.0-29.9) E66.3 Shoulder pain, right M25.511 Assessment & Plan Assessment & Plan (1) Type 2 diabetes mellitus with hyperglycemia: Comment: [facility] Code(s): E11.65 - Type 2 diabetes mellitus with hyperglycemia Category: Medical Plan: Decrease the amount of carbohydrate intake, pasta, bread, rice and potatoes are all sugar and that is aside from all the sweet stuff, remember that fruits are good but they are Sweet also. Hemoglobin A1c goal of less than 6.5. Patient is diet controlled (2) Hypercholesterolemia: Code(s): E78.00 - Pure hypercholesterolemia, unspecified Category: Medical Plan: Avoid fried foods, chicken skin, eggs, butter margarine, pastries and meat. Be it pork or beef they have a lot of cholesterol LDL goal of less than 100 and triglyceride of less than 150 january blood work showed LDL at goal (3) Hypertension: Code(s): I10 - Essential (primary) hypertension Category: Medical Plan: Continue with blood pressure medication. Decrease salt intake and exercise on lisinopril 30 mg once a day (4) Osteoporosis: Comment: August 2023 Code(s): M81.0 - Age-related osteoporosis without current pathological fracture Category: Medical Plan: Patient has been followed up by Endocrinology on Tymlos and repeat bone density in August 2025 (5) Overweight (BMI 25.0-29.9): Code(s): E66.3 - Overweight Category: Medical Plan: Continue with diet and exercise (6) Shoulder pain, right: Code(s): M25.511 - Pain in right shoulder Category: Medical Plan: Patient has been sent for physical therapy Plan History of Present Illness The patient is a 65-year-old male presenting for a follow-up visit. The patient has a history of diabetes mellitus, hypertension, and hypercholesterolemia. His diabetes is diet-controlled with a recent hemoglobin A1c of 5.7 in January 2025. His LDL cholesterol is at goal with a level of 70, and his blood pressure is managed with lisinopril 30 mg daily. The patient has osteoporosis and has been treated with Tymlos, with a plan to continue for 18 months followed by antiresorptive therapy. He has an L2 compression fracture and is scheduled for a follow-up bone density test in August 2025. The patient has a history of mild anemia with a hemoglobin level of 13.7 noted in January 2025. He also has borderline hepatic steatosis and cholelithiasis, as identified on an abdominal CT in 2020. His liver function tests have shown elevation, which is not new. Health Maintenance - Colonoscopy up to date as of September 2022 - Follow-up bone density test scheduled for August 2025 - Diet and exercise advised for management of diabetes and hypercholesterolemia - Physical therapy recommended Social History - Exercise: Patient engages in physical activities and has been involved in building a fence, indicating a level of physical activity. - Nutritional intake: Patient is diet-controlled for diabetes, suggesting attention to dietary habits. Review of Systems - Musculoskeletal: Reports improvement in neck, back, and spine aches. - Cardiovascular: Denies chest pain or palpitations. - Gastrointestinal: Reports no new symptoms related to liver or gallbladder issues. - Neurological: Denies dizziness or balance issues. Physical Exam Results - Labs: Hemoglobin A1c 5.7 in January 2025, LDL cholesterol 70, hemoglobin 13.7 indicating mild anemia. - Imaging: Abdominal CT in 2020 showing borderline hepatic steatosis and cholelithiasis. Plan The patient will continue with Tymlos for osteoporosis treatment, with a plan to transition to antiresorptive therapy after 18 months. A follow-up bone density test is scheduled for August 2025 to assess the effectiveness of the current treatment regimen. For diabetes management, the patient is advised to maintain a diet-controlled regimen, with a hemoglobin A1c goal of less than 6.5. The patient's LDL cholesterol is at goal, and the current management plan will continue. The patient is on lisinopril 30 mg daily for hypertension management, and this will be continued. Physical therapy has been recommended to support overall health and mobility. Patient was informed and verbally consented to the use of an ambient scribe for clinic note documentation during this visit. Discussion Notes During the visit, we discussed the continuation of Tymlos for osteoporosis and the transition to antiresorptive therapy after 18 months. We also reviewed the patient's diabetes management, emphasizing the importance of maintaining a diet- controlled regimen with a hemoglobin A1c goal of less than 6.5. The patient's LDL cholesterol levels are at goal, and the current management plan will continue. We discussed the ongoing use of lisinopril for hypertension management and the recommendation for physical therapy to support overall health. Patient Instructions - Continue taking Tymlos as prescribed and prepare for transition to antiresorptive therapy after 18 months. - Maintain a diet-controlled regimen to manage diabetes, aiming for a hemoglobin A1c of less than 6.5. - Continue current cholesterol management plan, as LDL levels are at goal. - Continue taking lisinopril 30 mg daily for hypertension. - Attend physical therapy sessions as recommended. Orders: Orders AMB Hemoglobin A1c Today E11.65 - Type 2 diabetes mellitus with hyperglycemia
--- OUTSIDE RECORDS SUMMARY | 2025-06-28 08:28 | XMS_ITS | Clinical Summary ---
Author Organization [facility] Facility Address [address] [place] [id number] Care Team Providers Care Tourist Home Keeper Name Role Phone Chucky Martinez MD Primary Care Provider [phone] Medications lisinopril (PRINIVIL,ZESTRI L) 30 MG tablet [...] Ye ars (1 of 1 - PCV) 2009 Influenza Vaccine (#1) 2025 Hepatitis B Vaccine Aged Out No longe r eligible based on patient's age to complete this topic Care Teams Tourist Home Keeper Relationship Specialty Start Date End Date Chucky Martinez MD [facility] [address] [place] PCP - General 11/25/20
[2025-06-28 08:29] VITALS: BP 110/70; PULSE 60; TEMP 36.3; O2SAT 99; BMI 27.0
== END 2025-06-28 09:07 | disposition home or self-care (01) ==
LOC: HO.HMCH 08:21
PROVIDERS: PCP Internal Medicine; Visit Provider Internal Medicine
DX: E11.65 Type 2 diabetes mellitus with hyperglycemia (principal); E78.00 Pure hypercholesterolemia, unspecified; I10 Essential (primary) hypertension; M81.0 Age-related osteoporosis without current pathological fracture; E66.3 Overweight; M25.511 Pain in right shoulder

== ENCOUNTER → 2025-06-28 08:17 | Outpatient (BNVA) | payer OTHER, SELFPAY | PROVIDERS: PCP Internal Medicine; Visit Provider Internal Medicine | DX: I10 Essential (primary) hypertension (principal); E11.65 Type 2 diabetes mellitus with hyperglycemia; E78.00 Pure hypercholesterolemia, unspecified; M81.0 Age-related osteoporosis without current pathological fracture; E66.3 Overweight; M25.511 Pain in right shoulder; E11.9 Type 2 diabetes mellitus without complications; Z79.899 Other long term (current) drug therapy | CPT/HCPCS: 83036; 96127 ==

== ENCOUNTER 2025-09-24 10:57 | Outpatient (REF) | payer OTHER, SELFPAY ==
--- NOTE | ~2025-09-24 | MM_ITS ---
STUDY: DUAL ENERGY X-RAY ABSORPTIOMETRY / DXA REASON FOR EXAM: Male, 65 years old M81.0 - Age-related osteoporosis without current pathological fracture TECHNIQUE: Bone Mineral Density (BMD) measurements of the lumbar spine and left hip were obtained using [employer] COMPARISON: August 31, 2023 FINDINGS: L3-L4 BMD: 0.995 g/cm2 L3-L4 T score: -2.0. This corresponds to osteopenia. This represents a 7.9* % increase in bone density compared with prior exam from August 31, 2023. Left femoral neck BMD: 0.679 g/cm2 Left femoral neck T score: -3.0. This corresponds to osteoporosis. Left total hip BMD: 0.812 g/cm2 Left total hip T score: -2.0. This corresponds to osteopenia. This represents a -3.4 % decrease in bone density compared with prior exam from August 31, 2023. * - Indicates a statistically significant change. MM/XR DEXA axial skeleton IMPRESSION: Osteoporosis Reference Information: The T-score is the number of standard deviations above or below the standard which is normal for young adults at their peak bone mineral density. The World Health Organization (WHO) interprets the T-scores as follows: At or above -1 SD Normal bone density Between -1 and -2.5 SD Osteopenia At or below -2.5 SD Osteoporosis Electronically signed by: Isaura Kent MD 09/24/2025 01:03 PM [facility]
--- OUTSIDE RECORDS SUMMARY | 2025-09-24 13:08 | XMS_ITS | Clinical Summary ---
Author Organization [facility] Facility Address [address] [place] [address] Care Team Providers Care Plant Engineering Supervisor Name Role Phone Chucky Martinez MD Primary Care Provider [phone] Medications lisinopril (PRINIVIL,ZESTRI L) 30 MG tablet [...] age to complete this topic Care Teams Plant Engineering Supervisor Relationship Specialty Start Date End Date Chucky Martinez MD [facility] [address] [place] PCP - General 11/25/20
== END 2025-09-24 10:58 | disposition home or self-care (01) ==
LOC: HO.MAMMO 10:57
PROVIDERS: PCP Internal Medicine; Visit Provider Internal Medicine Endocrinology, Diabetes & Metabolism
DX: M81.0 Age-related osteoporosis without current pathological fracture (principal)
CPT/HCPCS: 77080

== ENCOUNTER → 2025-09-24 11:30 | Outpatient (BNV) | payer OTHER, SELFPAY | PROVIDERS: PCP Internal Medicine; Visit Provider Radiology Body Imaging | DX: M81.0 Age-related osteoporosis without current pathological fracture (principal) | CPT/HCPCS: 77080 ==

== ENCOUNTER 2025-10-04 08:14 | Outpatient (AMB) | payer OTHER, SELFPAY ==
--- NOTE | 2025-10-04 08:23 | MHC.OFFVIS ---
Vital Signs 10/04/25 08:26 Height 5 ft 7.44 in Weight 176 lb 2.389 oz BMI 27.2 BP 142/84 H Blood Pressure Location Rt brachial Position Sitting Pulse 58 Pulse Source Pulse Oximeter Pulse Oximetry (%) 98 Oxygen Delivery Method Room Air Intake Visit Reasons: f/u osteoporosis Intake Note: Patient present today for Osteoporosis follow up. Batch Blender Required: No Accompanied by: Self / Same As Patient Allergies No Known Allergies (No Known Allergies*) Allergy (Verified 10/04/25 08:26) Medication List - Last Reconciled 10/04/25 by Esteban Zuniga MD abaloparatide (Tymlos) 80 mcg (0.04 mL) subcut DAILY ascorbate calcium (vitamin C) 1 g PO DAILY cholecalciferol (vitamin D3) 25 mcg PO DAILY hydrocortisone 2.5% topical ketoconazole 2% 1 appl topical DAILY lisinopril 30 mg PO DAILY metronidazole 0.75% 1 appl topical BID pen needle, diabetic (Comfort EZ Pen [place]) As directed polymyxin B sulf-trimethoprim 10,000 unit- 1 mg/mL 1 drp ophthalmic (eye) QID 5 days HPI Comments Details: 65 YO male is seen in consultation at the request of PCP for Osteoporosis. First diagnosed in 2 yrs ago . Not Received treatment in the past history of pathologic fracture 1 1/2 yrs ago fell backwards after hard fall no ONJ. Has several servings of dietary calcium per day in the form of yogurt , milk . Not Takes Calcium supplement Takes 1000 IU of Vitamin D daily. Denies ever using PPI, anticoagulant, antiepileptic or glucocorticoid medication. Not Does weight bearing exercise Fracture history: compression fx of L2 vertebrae Height loss: 1 inch Denies history of Kidney stones: Denies family history of Osteoporosis or hip fracture. UTD on dental cleanings and sees dentist every 6 months. No planned upcoming dental work or extractions. DXA dated 08/31/2023 : FINDINGS: LEFT FEMUR, NECK: BMD 0.713 g/cm2, Z-score -1.9, T-score -2.7, osteoporosis. LEFT FEMUR, TOTAL: BMD 0.841 g/cm2, Z-score -1.4, T-score -1.8, osteopenia. AP SPINE L1-L4: BMD 0.958 g/cm2, Z-score -2.0, T-score -2.2, osteopenia. IDENTIFIED RISK FACTORS: History of fracture (adult). HISTORY OF FRACTURE: Spine, wrist. MEDICATIONS: Calcium supplements or multivitamin, vitamin D. MM/XR DEXA axial skeleton IMPRESSION: 1. DIAGNOSIS: Severe osteoporosis based on the lowest T-score value of -2.7 in the femoral neck and history of fracture applying World Health Organization criteria. Labs: Secondary workup was negative. On Tymlos 80 mcg q.d. since 12/2024. Tolerating Tymlos nicely. No fracture since last visit The patient is a 64-year-old male presenting for a follow-up related to osteoporosis and evaluation of his vitamin D levels. He began treatment with Tymlos (abaloparatide) on Dec 15 and has been adhering to the regimen with no issues Repeat DEXA in 08/2025 showed stability in the bone density. No fx since last visit [facility] Medical History (Updated 06/28/25 @ 08:54 by Chucky Martinez MD) Epidermal cyst of neck Otitis media, right Otitis media, left Colon cancer screening Localized swelling, mass and lump, neck Hemorrhoid Watery eyes Hemorrhoids Diverticular disease Irritable bowel syndrome Knee osteoarthritis Cholelithiasis Family history of hemochromatosis Vitamin D deficiency Abdominal pain Degenerative disc disease Hand fracture, right Closed fracture of distal clavicle Inguinal hernia Obesity (BMI 30-39.9) Hypercholesterolemia Hypertension Surgical History History of removal of cyst (~10/20/23) History of repair of hiatal hernia History of arthroplasty of right knee History of vasectomy History of arthroplasty of left knee History of appendectomy Family History Father Hypertension Myocardial infarct Mother Lung cancer Myocardial infarct Son Cancer Brother Bladder cancer Hypertension Hemochromatosis Myocardial infarct Social History Housing: House Alcohol intake: current Alcohol intake frequency: holidays/special occasions only Patient Tobacco Use Status: Never used Tobacco Tobacco use type: Cigarette e-Cigarette/Vaping Use: Never Used Second Hand Smoke Exposure: No service: No Current occupational status: employed Cognitive needs: No Hearing needs: No Vision needs: Yes (Glasses) Physical Exam Vital Signs: Last Vital Signs Pulse 58 10/04/25 08:26 BP 142/84 H 10/04/25 08:26 Pulse Ox 98 10/04/25 08:26 Oxygen Delivery Method Room Air 10/04/25 08:26 BMI result Body Mass Index 27.2 Assessment & Plan Assessment & Plan (1) Osteoporosis: Comment: August 2023 Code(s): M81.0 - Age-related osteoporosis without current pathological fracture Category: Medical Plan: This 64-year-old white male with a history of osteoporosis and L2 compression fracture. Secondary causes of a ruled out. Currently on Tymlos since 12/2024 Plan is to continue Tymlos for full 18 month course until 06/2026 to be proceeded by an anti resorptive therapy most likely Prolia considering the patient has a history of compression fracture of the spine as a very high risk for subsequent fracture Coding Level of Care Code Est Pt Level 3 (18020) Diagnoses Osteoporosis M81.0
[2025-10-04 08:26] VITALS: BP 142/84; PULSE 58; O2SAT 98; BMI 27.2
--- OUTSIDE RECORDS SUMMARY | 2025-10-04 08:41 | XMS_ITS | Clinical Summary ---
Author Organization [facility] Facility Address [address] [place] [id number] Care Team Providers Care Director Pharmacology Name Role Phone Chucky Martinez MD Primary Care Provider [phone] Medications lisinopril (PRINIVIL,ZESTRI L) 30 MG tablet [...] age to complete this topic Care Teams Director Pharmacology Relationship Specialty Start Date End Date Chucky Martinez MD [facility] [address] [place] PCP - General 11/25/20
== END 2025-10-04 08:58 | disposition home or self-care (01) ==
LOC: HO.ENCR 08:15
PROVIDERS: PCP Internal Medicine; Visit Provider Internal Medicine Endocrinology, Diabetes & Metabolism
DX: M81.0 Age-related osteoporosis without current pathological fracture (principal)
CPT/HCPCS: 99213